=== PATIENT | female | born 1930 | race Caucasian/White ===

== ENCOUNTER 2016-08-15 21:49 | Inpatient (IN) | payer MEDICARE ==
[~2016-08-15] VITALS: Ht 170.2 cm; Wt 88.6 kg
[~2016-08-15 21:49] MED LIST: AMIO200T PO; ARTISOL2 EACH EYE; ATEN50TA PO; BIOT1SUB PO/SL; D32000TA PO; DILT31TA PO; DULC100C PO; FOLI1TAB4 PO; FURO1TAB60 PO; INSU100V SQ; LEVO50TA4 PO; MAPA650T PO; NEPHTAB3 PO; OCUVTAB4 PO; RANO500 PO; ZOFR4TAB PO
[2016-08-15] MEDS ORDERED: SODIUM CHLORIDE 0.9% FLUSH 10 ML FLUSH IVF PRN (22:00)
[2016-08-15] MEDS ORDERED: CALCIUM CHLORIDE INJ 1 GM in DEXTROSE 5% IN WATER 100ML INJ 100 ML IV ONE ×2 (22:00)
[2016-08-15 22:02] VITALS: BP 129/60; PULSE 106; RESP 20; O2SAT 95
[2016-08-15] MEDS: RESP: ALBUTEROL 2.5 MG/IPRATROPIUM 0.5 MG NEB (SCH) INH ×2 (22:04→22:05)
[2016-08-15 22:05] VITALS: BP 129/60; PULSE 106; RESP 20; TEMP 97.5; O2SAT 95
--- NOTE | 2016-08-15 22:08 | PD ---
HPI Chief Complaint: Altered Mental Status Time Seen by Provider: 21:55 Travel History International Travel<30 days: No Contact w/Intl Traveler<30days: No History of Present Illness HPI The patient is an 86 year old female who presents to the [facility] emergency department with a history of developing a decreased level of consciousness prior to arrival in the middle of her peritoneal dialysis. The patient continues to have retained fluid from the dialysis session. The patient is became cool, pale, and diaphoretic. The patient was not responsive to her daughter. Ambulance services were called and the patient was noted to have a normal blood sugar at 121, however the patient's blood pressure was a systolic of 60. The patient was placed flat and her blood pressure began to improve. The patient initially had a GCS of 3, however she became increasingly awake and alert after her blood pressure began to improve to systolic of 120. The patient on arrival reports that she's had abdominal pain that has been generalized since yesterday. She reports that she's had dry heaving with nausea , no vomiting. She denies having any diarrhea. She reports that her last bowel movement was yesterday was small. She reports that she last did her peritoneal dialysis yesterday and the fluid was unchanged in color. She denies having any fevers. She does report having shortness of breath, however she denies having any chest pain or pressure. The patient denies any recent cough cough, congestion, neck pain, diarrhea, urinary symptoms, one-sided weakness, slurred speech, facial droop, difficulty with word finding ability, or vision changes. [facility] Past Medical History Narrative Medical The patient's past medical history is significant for renal failure on peritoneal dialysis reportedly for the last 3 years, history of hypertension, history of pacemaker placement, history of diabetes mellitus, arthritis, anemia , history of skin cancer. Hx Anticoagulant Therapy: Yes (BABY ASA LAST TAKEN WAS 3 DAYS AGO ) Anemia: Yes Cancer: Yes (SKIN) Cardiovascular Problems: Yes (HTN ) Diabetes: Yes Dialysis: Yes Diminished Hearing: Yes Endocrine: Yes Glaucoma: No Genitourinary: Yes (STAGE 4 KIDNEY FAILURE) Hepatitis: No Hiatal Hernia: No Hypertension: Yes Immune Disorder: No Musculoskeletal: Yes (ARTHRITIS) Neurologic: No Psychiatric: No Reproductive: No Respiratory: No Immunizations Current: Yes Renal Failure: Yes Thyroid Disease: Yes Menopausal: Yes : 3 Para: 3 Past Surgical History Narrative Surgical The patient's past surgical history is significant for a pacemaker placement, cholecystectomy, peritoneal dialysis catheter placement, hysterectomy, cataract surgery Abdominal Surgery: Yes (UMBILICAL HERNIA REPAIR, DIALYSIS PORT) AICD: No Body Medical Devices: TEETH Cardiac Surgery: No Cholecystectomy: Yes Ear Surgery: No Endocrine Surgery: No Eye Surgery: Yes (CATARACT SX MEGHANA.) Genitourinary Surgery: No Gynecologic Surgery: Yes (HYSTERECTOMY) Hysterectomy: Yes Joint Replacement: No Oral Surgery: No Pacemaker: No Thoracic Surgery: No Other Surgery: Yes (see hx) Social History Alcohol Use: No Tobacco Use: No Substance Use: No Allergies-Medications (Allergen,Severity, Reaction): Coded Allergies: Adhesives (Verified Allergy, Severe, BLISTERS, 08/15/16) ALL ADHESIVES (EVEN NON ALLERGENIC) Reported Meds & Prescriptions Reported Meds & Active Scripts Active Reported Preservision Areds 2 (Multiple Vitamins W/ Minerals) 1 Cap 1 Cap PO BID Aspirin 81 Mg Chew 81 Mg CHEW DAILY Plavix (Clopidogrel Bisulfate) 75 Mg Tab 75 Mg PO DAILY Cranberry Plus Vitamin C (Cranberry-Vitamin C-Vitamin E) 4,200-20-3 Mg-Mg-Unit Cap 1 Cap PO HS Systane Nighttime Opth Oint (White Petrolatum-Mineral Oil Opth Oint) 1 Application Oint 1 Applic EACH EYE HS Bethanechol 25 Mg Tab 25 Mg PO ACHS Pantoprazole (Pantoprazole Sodium) 40 Mg Tab 40 Mg PO DAILY Pepcid (Famotidine) 20 Mg Tab 20 Mg PO BID Zofran Odt (Ondansetron Odt) 4 Mg Tab 4 Mg SL Q4HR PRN Ranexa ER 12 HR (Ranolazine) 500 Mg Tab 500 Mg PO DAILY Amiodarone (Amiodarone HCl) 200 Mg Tab 200 Mg PO DAILY Systane Ultra Opth (Polyethylene Glycol-Propylene Opth) 0.4-0.3% Soln 1 Drop EACH EYE BID Dulcolax Stool Softener (Docusate Sodium) 100 Mg Cap 100 Mg PO HS D3 (Cholecalciferol) 2,000 Unit Tab 2,000 Units PO DAILY Nephro-Clara (B-Complex W/ C & Folic Acid) 1 Tab 1 Tab PO DAILY Levothyroxine (Levothyroxine Sodium) 50 Mcg Tab 50 Mcg PO DAILY Lasix (Furosemide) 40 Mg Tab 40 Mg PO DAILY Folate (Folic Acid) 1 Mg Tab 1 Mg PO DAILY Mapap Arthritis Pain ER 8 HR (Acetaminophen) 650 Mg Tab 650 Mg PO Q4HR PRN Humalog Mix 75-25 Inj (Insulin Lispro Protam/Lispro Human) 1,000 Unit/10 Ml Susp 6 Units SQ AC DINNER Humalog Mix 75-25 Inj (Insulin Lispro Protam/Lispro Human) 1,000 Unit/10 Ml Susp 26 Units SQ AC BREAKFAST Review of Systems Except as stated in HPI: all other systems reviewed are Neg General / Constitutional: No: Fever Eyes: No: Visual changes HENT: No: Headaches, Rhinorrhea, Congestion, Neck Stiffness, Neck Pain Cardiovascular: Positive: Dyspnea on exertion, No: Chest Pain or Discomfort Respiratory: Positive: Shortness of Breath, No: Cough Gastrointestinal: Positive: Nausea, Loss of Appetite, No: Vomiting, Diarrhea, Abdominal Pain, Changes in Bowel Habits, Indigestion Genitourinary: No: Dysuria Musculoskeletal: No: Pain Skin: No Rash Neurologic: Positive: Weakness (generalized weakness), Syncope, Change in Mentation (decreased level of consciousness prior to arrival), No: Focal Abnormalities, Slurred Speech, Sensory Disturbance Psychiatric: No: Depression Endocrine: No: Polydipsia Hematologic/Lymphatic: No: Easy Bruising Physical Exam Narrative General: The patient is a well-developed well-nourished female, pale appearing on arrival , slightly diaphoretic. Head and Neck exam: Head is normocephalic atraumatic. Eyes: EOMI, pupils are equal round and reactive to light. Nose: Midline septum with pink mucous membranes Mouth: Dentition unremarkable. Moist mucus membranes. Posterior oropharynx is not erythematous. No tonsillar hypertrophy. Uvula midline. Airway patent. Neck: No palpable lymphadenopathy. No nuchal rigidity. No thyromegaly. Cardiovascular: Regular rate and rhythm without murmurs, gallops, or rubs. Lungs: The patient has crackles audible in the left lower lung base, diminished breath sounds in the bases bilaterally. No rhonchi, no wheezes audible. The patient has a prolonged expiratory phase of breathing. She is noted to have pursed lip breathing on exhalation. Abdomen: Distended on examination without any focal tenderness on palpation of all 4 quadrants of the abdomen. She has a peritoneal dialysis catheter in place along the right side of the abdomen that appears to be in good repair without any signs of erythema, surrounding drainage, or tenderness on palpation. No guarding, rebound, or rigidity. Negative [place] sign. No tenderness on palpation of McBurney's point. Extremities: No clubbing or cyanosis. The patient has 2+ pitting edema bilateral lower extremities. 2+ pulses in all 4 extremities. Back: No costovertebral angle tenderness to palpation. Neurologic Exam: Cranial nerves 2-12 were intact on exam. Strength is 4/5 in all 4 extremities consistent with generalized weakness. No sensory deficits noted. Skin Exam: No rash noted. Intact skin that is warm and dry. Data Data Last Documented VS Vital Signs Date Time Temp Pulse Resp B/P Pulse Ox O2 Delivery O2 Flow Rate FiO2 08/15/16 22:20 106 20 95 08/15/16 22:12 97.5 129/60 08/15/16 22:05 Nasal Cannula 2 Orders Electrocardiogram (08/15/16 21:55) Complete Blood Count With Diff (08/15/16 21:55) Comprehensive Metabolic Panel (08/15/16 21:55) Creatine Kinase (Cpk) (08/15/16 21:55) Ckmb (Isoenzyme) Profile (08/15/16 21:55) Troponin I (08/15/16 21:55) B-Type Natriuretic Peptide (08/15/16 21:55) Prothrombin Time / Inr (Pt) (08/15/16 21:55) Act Partial Throm Time (Ptt) (08/15/16 21:55) Arterial Blood Gas (Abg) (08/15/16 21:55) Blood Culture (08/15/16 21:55) Lipase (08/15/16 21:55) Urinalysis - C+S If Indicated (08/15/16 21:55) Magnesium (Mg) (08/15/16 21:55) Chest, Single Ap (08/15/16 21:55) Ct Brain W/O Iv Contrast(Rout) (08/15/16 21:55) Iv Access Insert/Monitor (08/15/16 21:55) Ecg Monitoring (08/15/16 21:55) Oximetry (08/15/16 21:55) Lactic Acid Sepsis Protocol (08/15/16 21:55) Calcium Chloride Inj (Calcium Chloride I (08/15/16 22:00) Sodium Chloride 0.9% Flush (Ns Flush) (08/15/16 22:00) Albuterol-Ipratropium Neb (Duoneb Neb) (08/15/16 22:00) Ondansetron Inj (Zofran Inj) (08/15/16 22:45) Aspirin Chew (Aspirin Chew) (08/15/16 23:30) Nitroglycerin 2% Oint (Nitroglycerin 2% (08/15/16 23:30) Ct Abd/Pel W/O Iv Contrast (08/15/16 23:18) Admit Order (Ed Use Only) (08/15/16 23:23) Labs Laboratory Tests Test 08/15/16 08/15/16 22:05 22:10 White Blood Count 12.5 TH/MM3 Red Blood Count 3.13 MIL/MM3 Hemoglobin 10.0 GM/DL Hematocrit 29.8 % Mean Corpuscular Volume 95.0 FL Mean Corpuscular Hemoglobin 31.9 PG Mean Corpuscular Hemoglobin 33.6 % Concent Red Cell Distribution Width 18.1 % Platelet Count 295 TH/MM3 Mean Platelet Volume 8.5 FL Neutrophils (%) (Auto) 69.2 % Lymphocytes (%) (Auto) 22.4 % Monocytes (%) (Auto) 6.0 % Eosinophils (%) (Auto) 1.4 % Basophils (%) (Auto) 1.0 % Neutrophils # (Auto) 8.6 TH/MM3 Lymphocytes # (Auto) 2.8 TH/MM3 Monocytes # (Auto) 0.8 TH/MM3 Eosinophils # (Auto) 0.2 TH/MM3 Basophils # (Auto) 0.1 TH/MM3 CBC Comment DIFF FINAL Differential Comment Prothrombin Time 11.3 SEC Prothromb Time International 1.0 RATIO Ratio Activated Partial 27.5 SEC Thromboplast Time Sodium Level 137 MEQ/L Potassium Level 3.7 MEQ/L Chloride Level 100 MEQ/L Carbon Dioxide Level 26.0 MEQ/L Anion Gap 11 MEQ/L Blood Urea Nitrogen 33 MG/DL Creatinine 3.73 MG/DL Estimat Glomerular Filtration 12 ML/MIN Rate Random Glucose 149 MG/DL Calcium Level 9.2 MG/DL Magnesium Level 2.3 MG/DL Total Bilirubin 0.4 MG/DL Aspartate Amino Transf 31 U/L (AST/SGOT) Alanine Aminotransferase 28 U/L (ALT/SGPT) Alkaline Phosphatase 138 U/L Total Creatine Kinase 31 U/L Troponin I 0.16 NG/ML B-Type Natriuretic Peptide 3072 PG/ML Total Protein 7.4 GM/DL Albumin 2.5 GM/DL Lipase 412 U/L Lactic Acid Level 2.9 mmol/L Blood Gas Puncture Site LT RADIAL Blood Gas Patient Temperature 98.6 Blood Gas HCO3 23 mmol/L Blood Gas Base Excess -0.8 mmol/L Blood Gas Oxygen Saturation 97 % Arterial Blood pH 7.43 Arterial Blood Partial 35 mmHg Pressure CO2 Arterial Blood Partial 109 mmHG Pressure O2 Arterial Blood Oxygen Content 15.0 Vol % Arterial Blood 1.3 % Carboxyhemoglobin Arterial Blood Methemoglobin 0.4 % Blood Gas Hemoglobin 10.9 G/DL Oxygen Delivery Device ROOM AIR Blood Gas Inspired Oxygen 21 % MDM Medical Decision Making Medical Screen Exam Complete: Yes Emergency Medical Condition: Yes Medical Record Reviewed: Yes Interpretation(s) Last Impressions Abdomen/Pelvis CT 08/15/16 2318 Signed Impressions: Service Date/Time: Monday, August 15, 2016 23:26 - CONCLUSION: 1. No acute abnormality to explain the patient's pain. 2. Peritoneal dialysis catheter with small volume dialysate within the peritoneal cavity. Wellington Adorno Jr., MD Head CT 08/15/[id number] Signed Impressions: Service Date/Time: Monday, August 15, 2016 23:22 - CONCLUSION: 1. No acute intracranial abnormality. 2. Chronic small vessel ischemic change. Wellington Adorno Jr., MD Chest X-Ray 08/[id number]/[id number] Signed Impressions: Service Date/Time: Monday, August 15, 2016 22:07 - CONCLUSION: Left base parenchymal process appears similar to prior. Nothing acute Haresh Vasquez MD Differential Diagnosis Hypotension due to poor by mouth intake, versus electrolyte abnormality, versus cardiac arrhythmia, versus sepsis, versus cardiogenic shock, versus orthostasis , versus vasovagal syncope Narrative Course During the course of the patients emergency department visit, the patients history, examination, and differential diagnosis were reviewed with the patient. The patient had IV access obtained and blood work sent for analysis. The patient states on a awake overnight monitor with oximetry and blood pressure monitoring. An EKG was done on arrival. The patient's EKG shows a paced rhythm heart rate of 70. The patient's family, daughter arrived at the bedside and provides more history regarding the patient's recent illnesses. The patient reportedly has a history of a GI bleed that is thought to be involving the small intestine after a pill study. She is followed by Dr. Yang for this. This Sunday, the patient is scheduled to have her pacemaker changed. The patient has been appearing paler than usual and her daughter is concerned that she may be increasingly anemic. Her last endoscopy was done a year ago. Her gastrologist is Dr. Yang. The patient has had increased abdominal pain and nausea with difficulty moving her bowels for the last 2 weeks. She did take 2 Dulcolax yesterday and had a small bowel movement. The patient's daughter reports that during peritoneal dialysis she became unresponsive, cool, pale, and diaphoretic. Her daughter reports that she is the one that usually administers the peritoneal dialysis. She reports that she has approximate 1.5 L of fluid still indwelling in her abdomen that needs to be dialyzed. The patient's daughter will complete her peritoneal dialysis here in the emergency department. Peritoneal dialysis in the emergency department. The patient was initially provided calcium gluconate to stabilize the cardiac membranes due to the possibility of this patient having hyperkalemia as the cause of her syncope. The patient was given a DuoNeb nebs 2. The patients laboratory studies were reviewed and remarkable for a CBC that shows a white count of 12.5, hemoglobin 10, platelets 295 with a normal differential, CMP is remarkable for BUN of 33, creatinine 3.73, glucose 149, alkaline phosphatase 138, CPK 31, troponin I 0.16 which could be related to a cardiac event, versus renal insufficiency. The patient denies any chest pain at this time. Lipase is 412. Lactic acid is 2.9 at this time IV fluid resuscitation is held as the patient has evidence of fluid overload and renal failure. PT 11.3, INR 1.0, PTT 27.5. The patient had an ABG done on arrival that shows a pH of 7.43, PCO2 35, PO2 109, bicarbonate 22.9. Radiology studies were reviewed and remarkable for a chest x-ray that shows no acute abnormality. The patient is noted to have a left base parenchymal process that appears similar to prior x-rays. CT scan of the brain shows no acute abnormality. CT scan of the abdomen and pelvis shows no acute abnormality to explain the patient's pain, peritoneal dialysis catheter was small volume of dialysate within the peritoneal cavity. The patients results were discussed with the patient, including the plan of care. I explained that further testing and/ or monitoring is indicated based on the patients history, examination, and/ or laboratory findings. Therefore, I recommended admission for additional evaluation. The patient expressed understanding and was agreeable with this plan. The patient was admitted to the hospital in guarded condition and sent to a bed under the care of the [facility]. Critical Care Narrative Aggregate critical care time was 40 minutes. Time to perform other separately billable procedures was not included in the critical care time. My time did not include minutes spent treating any other patients simultaneously or on activities that did not directly contribute to the patient's treatment. The services I provided to this patient were to treat and/or prevent clinically significant deterioration that could result in: Cardiovascular collapse, versus respiratory failure I provided critical care services requiring my management, as noted below: Chart data review, documentation time, medication orders and management, vital sign assessments/reviewing monitor data, ordering and reviewing lab tests, ordering and interpreting/reviewing x-rays and diagnostic studies, care of the patient and discussion of the patient with the admitting physicians. Sepsis Criteria SIRS Criteria (2 or more): Heart rate over 90 Physician Communication Physician Communication The patient's case was discussed with Haresh Kelly the physician assistant professor of drama for the [facility] who did agree to admit the patient for further evaluation and treatment at this time. Diagnosis Primary Impression: Syncope and collapse Admitting Information Admitting Physician Requests: Admit Kajal George MD August 15, 2016 22:08
[2016-08-15 22:12] VITALS: BP 129/60; PULSE 106; RESP 20; TEMP 97.5; O2SAT 95
--- NOTE | 2016-08-15 22:18 | RADRPT ---
EXAM DATE/TIME: 08/15/2016 22:07 [facility] COMPARISON: CHEST SINGLE AP, February 22, 2016, 22:28. INDICATIONS : Shortness of breath. MEDICAL HISTORY : Hypertension. Diabetes mellitus type II. Renal insufficiency. SURGICAL HISTORY : Pacemaker. ENCOUNTER: Initial ACUITY: 1 day PAIN SCORE: Non-responsive. LOCATION: Bilateral chest FINDINGS: Pacemaker device is noted with control pack over the left chest. No evidence of pneumothorax. Slight hazy opacity at the left lung base could reflect mild parenchymal disease and/or effusion, however th e appearance is similar to prior. Right lung is clear. Cardiac contours are grossly stable. CONCLUSION: Left base parenchymal process appears similar to prior. Nothing acute Haresh Vasquez MD on August 15, 2016 at 22:14 Board Certified Radiologist. This report was verified electronically.
[2016-08-15 22:23] LABS: BLOOD GAS BASE EXCESS -0.8 mmol/L (-2-2); BLOOD GAS CARBOXYHEMOGLOBIN 1.3 % (0-4); BLOOD GAS HCO3 23 mmol/L (22-26); BLOOD GAS METHEMOGLOBIN 0.4 % (0-2); BLOOD GAS O2 HGB SATURATION 97 % (90-100); BLOOD GAS PCO2 35 mmHg (38-42); BLOOD GAS PO2 109 mmHG (61-120); BLOOD GAS TOTAL HGB 10.9 G/DL (12.0-16.0); CRITICAL VALUE NO; DRAW SITE LT RADIAL; FIO2 21 %; NUMBER OF ARTERIAL PUNCTURES 1; OXYGEN DEVICE ROOM AIR; STAT YES; TEMP CORR TO 98.6; ULNAR PULSE PRESENT
[2016-08-15 22:30] LABS: AUTOMATED NEUTROPHIL # 8.6 TH/MM3 (1.8-7.7); BASOPHIL # 0.1 TH/MM3 (0-0.2); EOSINOPHIL # 0.2 TH/MM3 (0-0.4); EOSINOPHIL % 1.4 % (0.0-4.0); HEMATOCRIT 29.8 % (35.0-46.0); HEMO FLAGS DIFF FINAL; LYMPH % 22.4 % (9.0-44.0); LYMPHOCYTE # 2.8 TH/MM3 (1.0-4.8); MEAN CORPUSCULAR HEMOGLOBIN 31.9 PG (27.0-34.0); MEAN CORPUSCULAR HGB CONC 33.6 % (32.0-36.0); NEUT % 69.2 % (16.0-70.0); PLATELET COUNT 295 TH/MM3 (150-450); RED BLOOD COUNT 3.13 MIL/MM3 (4.00-5.30); RED CELL DISTRIBUTION WIDTH 18.1 % (11.6-17.2); WHITE BLOOD COUNT 12.5 TH/MM3 (4.0-11.0)
[2016-08-15 22:40] LABS: PROTHROMBIN TIME - PATIENT 11.3 SEC (9.8-11.6)
[2016-08-15 22:41] LABS: ALT (GPT) 28 U/L (10-53); ANION GAP 11 MEQ/L (5-15); AST (GOT) 31 U/L (15-37); BLOOD UREA NITROGEN 33 MG/DL (7-18); CHLORIDE 100 MEQ/L (98-107); GLOMERULAR FILTRATION RATE 12 ML/MIN (>89); MAGNESIUM 2.3 MG/DL (1.5-2.5); POTASSIUM 3.7 MEQ/L (3.5-5.1); SODIUM (NA) 137 MEQ/L (136-145)
[2016-08-15] MEDS ORDERED: RANO500 PO (22:42)
[2016-08-15] MEDS ORDERED: AMIO200T PO (22:42)
[2016-08-15] MEDS ORDERED: SYSTSOL9 EACH EYE (22:42)
[2016-08-15 22:43] LABS: APTT (PATIENT) 27.5 SEC (24.3-30.1)
[2016-08-15] MEDS ORDERED: ZOFR4TAB3 SL (22:43)
[2016-08-15] MEDS ORDERED: FAMO1TAB37 PO (22:43)
[2016-08-15 22:45] LABS: ALKALINE PHOSPHATASE 138 U/L (45-117); TOTAL BILIRUBIN ADULT 0.4 MG/DL (0.2-1.0)
[2016-08-15] MEDS ORDERED: ONDANSETRON HCL 4 MG/2 ML VIAL IV ONE (22:45)
[2016-08-15] MEDS ORDERED: BETH25TA2 PO (22:47)
[2016-08-15] MEDS ORDERED: SYSTOIN EACH EYE (22:47)
[2016-08-15] MEDS ORDERED: PANT40TA3 PO (22:47)
[2016-08-15] MEDS ORDERED: ASPI81CH CHEW (22:47)
[2016-08-15] MEDS ORDERED: PLAV75TA29 PO (22:47)
[2016-08-15] MEDS ORDERED: CRANCAP10 PO (22:47)
[2016-08-15] MEDS ORDERED: PRESCAP5 PO (22:49)
[2016-08-15 22:59] LABS: CREATINE KINASE 31 U/L (26-192)
[2016-08-15] MEDS ORDERED: ACETAMINOPHEN 325 MG TAB PO PRN (23:30)
[2016-08-15] MEDS ORDERED: SENNOSIDES 8.6 MG TAB PO PRN (23:30)
[2016-08-15] MEDS ORDERED: NITROGLYCERIN 2% OINT 1 GM PACKET TOPICAL ONE (23:30)
[2016-08-15] MEDS ORDERED: ASPIRIN 81 MG CHEW TAB CHEW ONE (23:30)
[2016-08-15] MEDS ORDERED: SODIUM CHLORIDE 0.9% FLUSH 10 ML FLUSH IV FLUSH PRN (23:30)
[2016-08-15] MEDS ORDERED: NALOXONE HCL 0.4 MG/ML AMP IV PRN (23:30)
[2016-08-15] MEDS ORDERED: BISACODYL 10 MG SUPP RECTAL PRN (23:30)
--- NOTE | 2016-08-15 23:36 | RADRPT ---
EXAM DATE/TIME: 08/15/2016 23:22 [facility] COMPARISON: No previous studies available for comparison. INDICATIONS : Syncope with altered mental status. RADIATION DOSE: 48.70 CTDIvol (mGy) MEDICAL HISTORY : Cardiovascular disease. Hypertension. Renal failure, chronic.Diabetes SURGICAL HISTORY : Umbilical hernia repair. Cholecystectomy.Hysterectomy. ENCOUNTER: Initial ACUITY: 1 day PAIN SCALE: 0/10 LOCATION: cranial TECHNIQUE: Multiple contiguous axial images were obtained of the head. Using automated exposure control and adj ustment of the mA and/or kV according to patient size, radiation dose was kept as low as reasonably a chievable to obtain optimal diagnostic quality images. FINDINGS: CEREBRUM: Periventricular low attenuation change involving both cerebral hemispheres. The ventricles are normal for age. No evidence of midline shift, mass lesion, hemorrhage or acute infarction. No extra-axial fluid collections are seen. POSTERIOR FOSSA: The cerebellum and brainstem are intact. The 4th ventricle is midline. The cerebellopontine angle i s unremarkable. EXTRACRANIAL: The visualized portion of the orbits is intact. SKULL: The calvaria is intact. No evidence of skull fracture. CONCLUSION: 1. No acute intracranial abnormality. 2. Chronic small vessel ischemic change. Wellington Adorno Jr., MD on August 15, 2016 at 23:33 Board Certified Radiologist. This report was verified electronically.
[2016-08-15 23:39] VITALS: O2SAT 100
--- NOTE | 2016-08-15 23:47 | RADRPT ---
EXAM DATE/TIME: 08/15/2016 23:26 [facility] COMPARISON: CT ABDOMEN & PELVIS W/O CONTRAST, February 22, 2016, 23:07. INDICATIONS : Abdomen pain with vomiting. ORAL CONTRAST: No oral contrast ingested. RADIATION DOSE: 15.92 CTDIvol (mGy) MEDICAL HISTORY : Cardiovascular disease. Hypertension. Renal failure, chronic.Diabetes SURGICAL HISTORY : Umbilical hernia repair. Cholecystectomy.Hysterectomy. ENCOUNTER: Initial ACUITY: 1 day PAIN SCALE: 0/10 LOCATION: abdomen TECHNIQUE: Volumetric scanning of the abdomen and pelvis was performed. Using automated exposure control and ad justment of the mA and/or kV according to patient size, radiation dose was kept as low as reasonably achievable to obtain optimal diagnostic quality images. FINDINGS: LOWER LUNGS: The visualized lower lungs are clear. A stent is seen involving the aortic valve consistent with a st ent mounted valve replacement. LIVER: Homogeneous density without lesion. There is a sub-1 cm low density focus involving the tip of the li jazzmine. Long-term stable and likely relates to a cyst. There is no dilation of the biliary tree. No anant cified gallstones. SPLEEN: Normal size without lesion. PANCREAS: Within normal limits. KIDNEYS: Normal in size and shape. There is no mass, stone, or hydronephrosis. A tiny high density cortical r enal cyst is seen exophytic from the anterior midpole the right kidney. This is stable. ADRENAL GLANDS: Within normal limits. VASCULAR: There is no aortic aneurysm. BOWEL/MESENTERY: The stomach, small bowel, and colon demonstrate no acute abnormality. There is no free intraperitone al air. A peritoneal dialysis catheter is seen coiled anteriorly within the lower abdomen. A small vo lume of dialysate is seen throughout the abdomen. ABDOMINAL WALL: Within normal limits. RETROPERITONEUM: There is no lymphadenopathy. BLADDER: No wall thickening or mass. REPRODUCTIVE: Within normal limits. INGUINAL: There is no lymphadenopathy or hernia. MUSCULOSKELETAL: Diffuse degenerative changes of the lumbar spine. CONCLUSION: 1. No acute abnormality to explain the patient's pain. 2. Peritoneal dialysis catheter with small volume dialysate within the peritoneal cavity. Wellington Adorno Jr., MD on August 15, 2016 at 23:42 Board Certified Radiologist. This report was verified electronically.
[2016-08-16] VITALS (57 sets, daily range): BP systolic 75–186; BP diastolic 45–97; PULSE 62–87; RESP 16–54; TEMP 94.5–98.6; O2SAT 97–100
[2016-08-16 00:18] LABS: LACTIC ACID GHOST NOT REPORTABLE
[2016-08-16] MEDS ORDERED: DEXTROSE 50% IN WATER 50 ML VIAL(D50) IV PUSH PRN ×2 (00:30→14:30)
[2016-08-16] MEDS ORDERED: GLUCAGON 1 MG/ML VIAL OTHER PRN ×2 (00:30→14:30)
[2016-08-16] MEDS: SODIUM CHLOR 0.9% 1000 ML INJ 1,000 ML IV SCH (01:15)
[2016-08-16] MEDS: ONDANSETRON HCL 4 MG/2 ML VIAL IVP PRN ×2 (03:11→08:48)
[2016-08-16 05:06] LABS: BICARBONATE 25.4 MEQ/L (21.0-32.0); POTASSIUM 3.5 MEQ/L (3.5-5.1)
--- NOTE | 2016-08-16 05:56 | MH ---
cc: LIZZ GRAHAM JAWED A. MD DATE OF ADMISSION: 08/15/2016 TIME OF EXAM The patient was seen at 23:30. PRIMARY CARE PHYSICIAN Dr. Lizz Graham CHIEF COMPLAINT Syncope. HISTORY OF PRESENT ILLNESS This is a pleasant 86-year-old female with multiple medical problems. The patient has been having some abdominal pain for weeks. About two weeks ago she was at [facility]. Since then she has seen her yarn worker, Dr. Yang. He switched her Prilosec to Protonix. She also started taking Prevacid. She is also on bethanechol for what sounds like gastroparesis. The patient's pain improved and is mild but apparently Dr. Yang wants to do an endoscopy on her after she is cleared cardiac-morris. She is due for a pacemaker upgrade to a dual lead later this week. The patient is on peritoneal dialysis. She has not been having fever. She was at home having her peritoneal dialysis today and she passed out. She was unconscious for awhile. The daughter called 9--1 and [facility]AC came, loaded her on the ambulance. GCS was 3 at that time. Her sugar was stable. Her pressure systolic was at 60. The patient was placed flat. She became more awake and alert, her pressure stabilized and is actually high on the monitor at this point. The patient is A&O x 4 at this point. She still has some minimal abdominal discomfort, mainly in the upper abdomen where it has been for the whole time. She did have some nausea. She may have thrown up a small amount at the hospital, was not throwing up at home. She developed some chills at the hospital but has been afebrile. She had a small bowel movement earlier today which was dark but not overtly bloody or tarry. She does have a history of GI bleed and anemia and AVMs. MEDICATIONS ON ADMISSION Please see the chart. ALLERGIES ADHESIVES. PAST MEDICAL HISTORY 1. End-stage renal disease on peritoneal dialysis. 2. History of A-fib. 3. Diabetes. 4. TIA. 5. Hypertension. 6. Anemia. 7. GI bleed. 8. AVMs. 9. Aortic stenosis. 10. Hypothyroidism. 11. Possible gastroparesis. 12. History of syncope. 13. Coronary artery disease, status post RI without intervention. PAST SURGICAL HISTORY 1. Cholecystectomy. 2. Hernia repair. 3. Hysterectomy. 4. Peritoneal dialysis catheter. 5. Permanent pacemaker placed, TAVR. 6. Cardiac catheterization. SOCIAL HISTORY Lives with her daughter. Uses a walker. No tobacco or alcohol. FAMILY HISTORY Non-contributory. REVIEW OF SYSTEMS The patient has had a lot of medical changes over the past six months. She was admitted to [facility] apparently with a GI bleed late last year and had an RI and Dr. Read had done a cath without intervention, according to the daughter. She was also found to have the severe aortic stenosis and had a TAVR done. She has chronic edema in the legs which gets better in the morning, is worse at night. She has had several episodes of syncope in the past, most of them related to bowel movements or GI bleeds. On 12-point review of systems, no other pertinent findings. PHYSICAL EXAMINATION VITAL SIGNS: The patient has been afebrile, respirations 20, last blood pressure recorded was 129/60, pulse of 106. GENERAL: This is an 86-year-old female resting in bed. She has chills and appears to be mildly tachypneic during my interview. HEENT: Mucous membranes are moist. No jaundice. NECK: Supple. CARDIOVASCULAR SYSTEM: Tachycardic. RESPIRATORY SYSTEM: Decreased breath sounds at the bases. GASTROINTESTINAL SYSTEM: Bowel sounds are present. She is obese. There is a peritoneal dialysis catheter in the right lower quadrant. There is some mild tenderness in the epigastric area and right upper and left upper quadrants but no guarding or rebound. SYSTEM: No CVA tenderness. No suprapubic tenderness. MUSCULOSKELETAL SYSTEM: 2+ pitting edema bilateral lower extremities in the pretibial and over the feet. There are no cyanotic or gangrenous changes. NEUROLOGICAL EXAM: The patient is awake and alert. Her speech is clear and fluent. There is no obvious facial asymmetry. She knows the year, the month and the day. She can tell me who the President is. Her tongue is midline. EOMs are intact. Perinatal Social Worker is 5/5 and symmetrical. INVESTIGATIONS White count is 12.5, hemoglobin is 10, hematocrit is 29.8, platelets are 295. ABGs showed a pH of 7.43, a pCO2 of 35, PO2 of 109. INR is 1. Lactic acid was 2.9. Sodium 137, potassium 3.7, BUN 33, creatinine 3.73. Glucose is 149, alkaline phosphatase 138. Troponin 0.16. BNP is 3072. Albumin is 2.5, lipase is 412. Urinalysis was pending. IMAGING STUDIES Head CT is pending. Chest x-ray shows left base parenchymal process, appears similar to prior study, nothing acute. CT of the abdomen and pelvis shows a small ventral hernia on the right anterior abdominal wall containing a loop of small bowel, no bowel dilatation or obstruction. There are two small bilateral pleural effusions, right greater than left, mild anasarca. Small cyst in the liver and kidneys. Renal cortical atrophy. Postoperative cholecystectomy. EKG is not scanned in but according to Dr. George there was no acute finding. IMPRESSION 1. Syncope. 2. End-stage renal disease on peritoneal dialysis. 3. Elevated troponin. 4. Bilateral right greater than left pleural effusions. 5. Abdominal pain. 6. History of GI bleeds and AVMs. 7. Hypertension. 8. Diabetes mellitus type 2. 9. 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 DISCUSSION 1. The patient is placed on observation status to Dr. Javier's service. The plan is to run serial troponins. Consult her messenger copy, Dr. Read, to evaluate her as well as Dr. Barrios her finish painter to help manage her peritoneal dialysis. We will consult Dr. Yang, the yarn worker, to evaluate her for this abdominal discomfort. 2. We will continue her home medications as indicated. 3. We will have physical therapy consulted. 4. DVT prophylaxis. We will continue GI prophylaxis. 5. She will be monitored on telemetry. 6. She is scheduled to have her pacemaker upgrade done at [facility] on August 18, 2016. This will be deferred to Dr. Read if it needs to be moved up and done here or if she will be released prior to then and have it done as planned at [facility]. ANTICIPATED LENGTH OF STAY: Two days. ANTICIPATED DISCHARGE: Home with family. Dictated by: Gary Kelly PA-C Louise Javier MD JP/JOHNNY /12:13 AM /5:22 AM PT SEEN AND EXAMINED ABOVE CHART REVIEWED INCLUDING LABS MEDS AND NOTES AND RAD DATA DW PT PLAN OF CARE DW HOG DRIVER BIANCA RN AT TIME OF MORNING PT CONDITION WAS GUARDED MTDD
[2016-08-16] MEDS ORDERED: cloNIDine HCL 0.1 MG TAB PO PRN (06:15)
[2016-08-16] MEDS: HEPARIN SODIUM - SQ 10,000 UNITS/ML VIAL SQ SCH ×2 (06:28→18:00)
[2016-08-16] MEDS: BETHANECHOL CHL 25 MG TAB PO SCH (06:28)
[2016-08-16] MEDS: NITROGLYCERIN 2% OINT 1 GM PACKET TOPICAL SCH ×4 (06:29→23:37)
--- NOTE | 2016-08-16 07:20 | HHI.PR ---
Objective Objective Results - Vital Signs Date Time Temp Pulse Resp B/P Pulse Ox O2 Delivery O2 Flow Rate FiO2 08/16/16 04:42 98.1 80 20 186/87 97 171/97 08/16/16 04:11 87 08/16/16 03:12 79 20 170/82 100 Nasal Cannula 08/16/16 00:22 98.6 75 20 152/88 99 Nasal Cannula 2 08/15/16 23:39 100 08/15/16 22:20 106 20 95 08/15/16 22:12 97.5 106 20 129/60 95 08/15/16 22:05 97.5 106 20 129/60 95 Nasal Cannula 2 08/15/16 22:02 106 20 129/60 95 Nasal Cannula 2 Result Diagram: 08/15/165 08/16/16 0415 Physical Exam Physical Exam PHYSICAL EXAMINATION GENERAL: This is a well-developed, well-nourished female who appears to be in no acute distress. She is alert and awake, []. HEAD: Normocephalic without any lesion or mass noted. Facial features appear symmetric. OROPHARYNGEAL: Oropharynx without erythema or edema. NECK: Supple. No nuchal rigidity or lymphadenopathy. Trachea midline without deviation. CARDIAC: Regular rhythm, regular rate, S1 and S2 are heard. Murmur []; no gallops or rubs. LUNGS: Clear to auscultation bilaterally. [] wheeze, [] rhonchi or [] rale. No use of accessory muscles on inspiration or expiration. ABDOMEN: Soft, nontender, no organomegaly or masses. Bowel sounds are heard in all four quadrants. No rebound. No guarding. EXTREMITIES: [] edema. Pulses equal bilateral. [] cyanosis. NEUROLOGICAL: Patient mood and affect appropriate. No focal deficit SKIN:Warm and moist A/P Assessment and Plan 1. Syncope. 2. End-stage renal disease on peritoneal dialysis. 3. Elevated troponin. 4. Bilateral right greater than left pleural effusions. 5. Abdominal pain. 6. History of GI bleeds and AVMs. 7. Hypertension. 8. Diabetes mellitus type 2. 9. 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 DISCUSSION 1. The patient is placed on observation status to Dr. Javier's service. The plan is to run serial troponins. Consult her clearance representative, Dr. Read, to evaluate her as well as Dr. Barrios her pipe turner to help manage her peritoneal dialysis. We will consult Dr. Yang, the ed teacher, to evaluate her for this abdominal discomfort. 2. We will continue her home medications as indicated. 3. We will have physical therapy consulted. 4. DVT prophylaxis. We will continue GI prophylaxis. 5. She will be monitored on telemetry. 6. She is scheduled to have her pacemaker upgrade done at [facility] on August 18, 2016. This will be deferred to Dr. Read if it needs to be moved up and done here or if she will be released prior to then and have it done as planned at [facility]. Aida Jackson August 16, 2016 07:20
--- NOTE | 2016-08-16 08:10 | HHI.PR ---
Subjective Remarks awakens to verbal stimuli HOB elevated 30 degrees tired and weak Constipation Abdominal pain generalized, better this a.m. Afebrile BP labile this morning, fluid bolus 1 500 cc (Aida Jackson) Objective Objective Results - Vital Signs Date Time Temp Pulse Resp B/P Pulse Ox O2 Delivery O2 Flow Rate FiO2 08/16/16 04:42 98.1 80 20 186/87 97 171/97 08/16/16 04:11 87 08/16/16 03:12 79 20 170/82 100 Nasal Cannula 08/16/16 00:22 98.6 75 20 152/88 99 Nasal Cannula 2 08/15/16 23:39 100 08/15/16 22:20 106 20 95 08/15/16 22:12 97.5 106 20 129/60 95 08/15/16 22:05 97.5 106 20 129/60 95 Nasal Cannula 2 08/15/16 22:02 106 20 129/60 95 Nasal Cannula 2 (Aida Jackson) Result Diagram: 08/15/16 2205 08/16/16 0415 ROS General: Fatigue, Weakness (generalized), Other (10 point ROS done positives noted on system assessment otherwise unremarkable, noted to be hypotensive this morning and symptomatic) Cardiac: Edema (upper extremities) GI: Abdominal Pain, BM (small amount and hard consistency), Other (constipation ) Neuro/MS: Other (near-syncope episode on admission, none since) (Aida Jackson) Physical Exam Physical Exam PHYSICAL EXAMINATION GENERAL: This is an obese well-developed, female who appears to be in no acute respiratory distress. She awakens to verbal stimuli, but states she feels really weak and tired HEAD: Normocephalic without any lesion or mass noted. Facial features appear symmetric. OROPHARYNGEAL: Oropharynx without erythema or edema. NECK: Supple. No nuchal rigidity or lymphadenopathy. Trachea midline without deviation. CARDIAC: Regular rhythm, regular rate, S1 and S2 are heard. Murmur soft ,no gallops or rubs. LUNGS: Diminished breath sounds to auscultation bilaterally left more diminished than right. ABDOMEN: Soft round, nontender to light palpation,no masses. Bowel sounds present, Mild distention EXTREMITIES: Generalized extremity upper and lower edema. Pulses intact, weak , NEUROLOGICAL: Patient mood and affect appropriate. Speech is clear, complaints of weakness SKIN:Warm, bruising and petechiae noted on both arms bilateral., Mild diaphoresis noted with low BP (Aida Jackson) A/P Assessment and Plan 1. Syncope. 2. End-stage renal disease on peritoneal dialysis. 3. Elevated troponin. 4. Bilateral right greater than left pleural effusions. 5. Abdominal pain. 6. History of GI bleeds and AVMs. 7. Hypertension. 8. Diabetes mellitus type 2. 9. 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 10 Constipation 11. Hypotension DISCUSSION Vital signs reviewed a.m. BP 186/87. Will add some when necessary meds for BP, when checked this a.m. patient was pale, mild diaphoresis, BP systolic high 80s to 90, where she was hypertensive. Increased IV fluids from 50-125 an hour for a 500 cc bolus. Monitor for any acute shortness of breath. Labs reviewed, leukocytosis mild, elevated lactic acid on admission but trending down. Blood cultures are pending Anemia probably secondary to chronic disease but no acute bleeding noted, Hemoccult and 10. We will monitor again in the a.m., CBC and BMP End-stage renal due to disease, peritoneal dialysis used, patient appears to be extremely debilitated. PT to eval and treat Nephrology consult, pending Elevated troponins, telemetry, spoke to geotechnical intern heart rate appears to be in the 80s, pacemaker is firing Cardiology is consult pending, recent TAVR, systolic murmur noted Patient has pacemaker, scheduled to have her pacemaker upgrade done at [facility] on August 18, 2016. This will be deferred to Dr. Read if it needs to be moved up and done here or if she will be released prior to then and have it done as planned at [facility]. DVT prophylaxis Abdominal pain, patient states generalized, and complaints of constipation. We' ll check for impaction, and give Dulcolax suppository afterwards. Patient states very small BM last night but very hard. GI consult pending. PUD prophylaxis History of hypertension, home meds reconciled we'll monitor vital signs with special attention to BP. Labile Diabetes type 2, Accu-Cheks before meals and at bedtime with sliding scale Mild dyspnea, with low volumes, O2 therapy Discussed With: Nurse, Family, Other (Dr. Javier, seen on his behalf) (Aida Jackson) Assessment and Plan Incision examination detailed as above. With RN at bedside. Agree with 500 bolus as discussed with BRIM BUSTER. Plan of care discussed with BRIM BUSTER Plan to DC nitro paste Continuous telemetry Recheck CBC this morning stat. Patient is a labile blood pressure before she came she is a low blood pressure done very high and now again low urine will monitor. Discussed with patient in detail Left message for daughter Discussed with RN on the floor in detail Condition was critical bolus was given. Total critical time spent in management of this patient direct management is approximately 30 minutes. As patient condition is very labile with multiple medical problem to prevent shock patient warrants inpatient admission. Will admit inpatient. Discussed with cardiology as well. Likely be here 3-4 days. Patient is still lethargic. Discussed with laborer shaft sinking. Discussed with multi line claims adjuster. As per nephrology she has is still some kidney function. And wants to avoid dye. Plan for a stat ultrasound abdomen complete. As discussed with laborer shaft sinking. pt seen again in ICU. alum plant supervisor and laborer shaft sinking on pressors (Louise Javier MD) Aida Jackson August 16, 2016 08:10 Louise Javier MD August 16, 2016 09:14
[2016-08-16] MEDS ORDERED: BISACODYL 10 MG SUPP RECTAL ONE (08:15)
[2016-08-16] MEDS ORDERED: SODIUM CHLORIDE 0.9% FLUSH 10 ML FLUSH IV FLUSH SCH (09:00)
[2016-08-16] MEDS: RANOLAZINE 500 MG EXTENDED RELEASE TAB PO SCH ×2 (09:00→21:00)
[2016-08-16 10:09] LABS: HEMATOCRIT 31.2 % (35.0-46.0); MEAN CELL VOLUME 95.3 FL (80.0-100.0); MEAN CORPUSCULAR HEMOGLOBIN 31.6 PG (27.0-34.0); MEAN CORPUSCULAR HGB CONC 33.1 % (32.0-36.0); PLATELET COUNT 393 TH/MM3 (150-450); RED BLOOD COUNT 3.27 MIL/MM3 (4.00-5.30); RED CELL DISTRIBUTION WIDTH 18.9 % (11.6-17.2); REVIEW FLAG FINAL; WHITE BLOOD COUNT 14.3 TH/MM3 (4.0-11.0)
[2016-08-16 10:30] LABS: BICARBONATE 23.2 MEQ/L (21.0-32.0); POTASSIUM 3.7 MEQ/L (3.5-5.1)
--- NOTE | 2016-08-16 10:50 | MB ---
cc: MINO JOSE DATE OF CONSULTATION: 08/16/2016 HISTORY OF PRESENT ILLNESS Ms. Fuentes is a 86-year-old white female, a patient of Dr. Read, with several week history of abdominal pain. She had a GI evaluation at [facility] by Dr. Yang. She has endstage renal disease and is on peritoneal dialysis. She had a syncopal episode at home. EMS found her to be severely hypotensive. She had mild upper abdominal discomfort. She has not had any chest pain or shortness of breath. Her troponin is slightly elevated but not trending. PAST MEDICAL HISTORY Positive for: 1. Endstage renal disease on peritoneal dialysis. 2. Atrial fibrillation. 3. Diabetes mellitus. 4. Coronary artery disease. 5. Myocardial infarction, no history of intervention. 6. TIA. 7. Hypertension. 8. Anemia. 9. GI bleeding. 10. AV malformation. 11. Aortic stenosis, status post TAVR. 12. Status post permanent pacemaker placement. 13. Hypothyroidism. 14. Possible gastroparesis. 15. Cholecystectomy. 16. Hernia repair. 17. Hysterectomy. 18. Peritoneal dialysis catheter placement. MEDICATION Include: 1. Zofran. 2. Acetaminophen. 3. Amiodarone 200 mg a day. 4. Ranexa. 5. Docusate. 6. Polyethylene Glycol-Propylene ophthalmic drops. 7. Pepcid. 8. Insulin. 9. Furosemide. 10. B-complex. 11. Multivitamin. 12. Baby aspirin. 13. Vitamin C. 14. Vitamin D. 15. Cranberry. . 17. Bethanechol. 18. Plavix. 19. Pantoprazole. 20. Levothyroxine. 21. Folic acid. 22. Cholecalciferol. ALLERGIES ADHESIVES. SOCIAL HISTORY The patient does not smoke. She does not drink alcohol. She lives with her daughter. She walks with a walker. FAMILY HISTORY Negative for heart disease. REVIEW OF SYSTEMS Otherwise negative. PHYSICAL EXAMINATION VITAL SIGNS: Blood pressure 85/50, pulse 82 and regular. HEENT: Negative. NECK: 2+ carotid upstrokes. No bruits. LUNGS: Clear. HEART: Regular with no murmur, gallop or rub. ABDOMEN: Soft. No bruits. EXTREMITIES: Trace edema. 1+ distal pulses. NEUROLOGIC: Grossly nonfocal. EKG EKG was reviewed and showed sinus rhythm and ventricular pacing. LABORATORY DATA Hemoglobin 10.0, potassium 3.5, creatinine 4.1. Troponin is 0.16, 0.13 and 0.14. DIAGNOSIS 1. Syncope. 2. Hypotension. 3. Mildly abnormal troponin secondary to endstage renal disease. 4. Endstage renal disease on peritoneal dialysis. 5. Abdominal pain. 6. History of GI bleeding and AVMs. 7. Hypertension. 8. Diabetes mellitus. 9. Aortic stenosis, status post TAVR in April 2016. 10. Constipation. 11. Coronary artery disease, history of myocardial infarction. DISPOSITION Ms. Fuentes will be monitored on telemetry. She will be evaluated for GI bleeding since she has previous history of GI bleeding. Her troponin is slightly elevated but not trending, this is related to end stage renal disease. I recommend further evaluation for her abdominal pain. We will obtain echocardiogram to evaluate her left ventricular function. I will follow her for cardiology during her hospitalization. She will follow up with Dr. Read, her primary coordinator integrated marketing, in his office after discharge. MD KURT Solis/LUIS /9:25 AM /9:54 AM MTDAlli
[2016-08-16] MEDS ORDERED: ACETAMINOPHEN 325 MG TAB PO PRN (11:00)
[2016-08-16] MEDS ORDERED: CHLORHEXIDINE GLUCONATE 2 % 1 PACK (2 CLOTHS) TOP PRN ×2 (11:00→13:00)
[2016-08-16] MEDS ORDERED: RESP: ALBUTEROL 2.5 MG/IPRATROPIUM 0.5 MG NEB (PRN) INH (11:00)
[2016-08-16] MEDS ORDERED: SODIUM CHLORIDE 0.9% FLUSH 10 ML FLUSH IV FLUSH PRN ×2 (11:00→13:30)
[2016-08-16] MEDS: PANTOPRAZOLE SODIUM 40 MG VIAL IV SCH (11:00)
[2016-08-16] MEDS ORDERED: MISCELLANEOUS NURSING INFORMATION XX SCH ×2 (11:00→13:00)
[2016-08-16] MEDS ORDERED: MAGNESIUM HYDROXIDE SUSP 30 ML CUP PO PRN (11:00)
--- NOTE | 2016-08-16 11:52 | RADRPT ---
EXAM DATE/TIME: 08/16/2016 10:00 [facility] COMPARISON: CT ABDOMEN & PELVIS W/O CONTRAST, August 15, 2016, 23:26. INDICATIONS : Abdominal pain. MEDICAL HISTORY : Hypertension. Arthritis. Diabetes. Renal failure. Skin cancer. Anemia. SURGICAL HISTORY : Cholecystectomy. Hysterectomy. Pacemaker. Umbilical hernia repair. Dialysis port. ENCOUNTER: Initial ACUITY: 1 day PAIN SCORE: 0/10 LOCATION: Bilateral upper quadrant MEASUREMENTS: LIVER: 18.4 cm length COMMON DUCT: 6 mm RIGHT KIDNEY: 10.2 x 4.6 x 5.8 cm LEFT KIDNEY: 10.1 x 3.9 x 4.9 cm SPLEEN: 9.3 cm length AORTA: 1.4cm maximal FINDINGS: LIVER: A coarse heterogeneous echotexture is present throughout the liver. There are no focal lesions or howard dence of ductal dilatation. Portal vein is patent with hepatopedal flow. COMMON DUCT: No intraluminal mass or stone visualized. GALLBLADDER: Status post cholecystectomy PANCREAS: Not well seen. RIGHT KIDNEY: Diffuse cortical thinning and increased echogenicity with 2 cysts. 14 and 19 mm cyst identified in th e midpole. LEFT KIDNEY: Diffuse cortical thinning and increased echogenicity. A 2 mm cyst is identified in the upper pole. Hy perechoic structure measuring a centimeter is identified in the upper pole. SPLEEN: No focal lesion. AORTA: Non aneurysmal. IVC: Within normal limits. CONCLUSION: Hepatomegaly with diffuse parenchymal disease characteristic of steatosis. Free fluid in the abdomen from peritoneal dialysis. Status post cholecystectomy. No evidence of biliary obstructive disease. Bilateral renal cortical atrophy Bilateral renal cysts. Rodolfo Metzger MD on August 16, 2016 at 11:41 Board Certified Radiologist. This report was verified electronically.
[2016-08-16] MEDS ORDERED: TERBUTALINE INJ 1 MG/ML AMP SQ PRN (12:00)
[2016-08-16] MEDS ORDERED: NOREPINEPHRINE-DEXTROSE DRIP 250 ML IV SCH (12:00)
--- NOTE | 2016-08-16 12:21 | RADRPT ---
EXAM DATE/TIME: 08/16/2016 11:25 [facility] COMPARISON: CHEST SINGLE AP, August 15, 2016, 22:07. INDICATIONS : Central line placement. MEDICAL HISTORY : Cardiovascular disease. Hypertension. Renal failure, chronic.Diabetes SURGICAL HISTORY : Umbilical hernia repair. Cholecystectomy.Hysterectomy. ENCOUNTER: Subsequent ACUITY: 4 - 6 days PAIN SCORE: 0/10 LOCATION: Bilateral chest FINDINGS: A single view of the chest demonstrates cardiomegaly. Left-sided pacemaker with 2 intact leads. Right jugular central line with tip in the right atrium.. Osseous structures are intact. There is a stent graft in the left ventricular outflow track/aortic valve. CONCLUSION: Adequate placement of right jugular central line without pneumothorax. Vick Parks MD on August 16, 2016 at 12:17 Board Certified Radiologist. This report was verified electronically.
--- NOTE | 2016-08-16 12:57 | PD.PROCEDR ---
Central Line Procedure REASON FOR PROCEDURE Central venous access PROCEDURE PERFORMED Central line placement: RI J CONSENT Informed consent for procedure was obtained from daughter. The risks and benefits of the procedure were discussed to include but limited to bleeding, clot formation, infection, and even . ANESTHESIA Local injection of 1% Lidocaine DESCRIPTION OF THE PROCEDURE The patient was placed in supine, mild Trendelenburg position. The area was exposed and cleansed with ChloraPrep, times two. Large sterile drape was used to cover the patient, with the site exposed, under sterile conditions including cap, face mask, sterile gown, and sterile gloves. On single attempt, the introducer needle was inserted with negative pressure in syringe and venous flash was obtained. The guide wire was then advanced without any restriction and the needle was removed. The dilator was used without any complications. Using Seldinger technique the 7 F catheter was advanced over the guide wire to a depth of [ ] centimeters. The guide wire was removed. All ports were aspirated with dark venous blood return and flushed easily with sterile saline. All ports were capped. Antibiotic disc was placed around central line at puncture site. The central line was secured to the skin with two interrupted 2.0 silk sutures. The area was bandaged with sterile see-through central line bandage. RADIOLOGICAL DATA Ultrasound guidance was used to locate RIJ. Doppler/color flow was used to confirm venous flow. COMPLICATIONS: No apparent complications ESTIMATED BLOOD LOSS: Less than 1 cc. Stacey Nesbitt MD August 16, 2016 12:57
[2016-08-16 12:59] LABS: REVIEW FLAG FINAL
[2016-08-16] MEDS ORDERED: Vancomycin Consult Pharmacy 1 EA OTHER SCH (13:00)
[2016-08-16] MEDS ORDERED: HEPARIN SODIUM - IV 10,000 UNITS/10 ML VIAL XX PRN (13:30)
--- NOTE | 2016-08-16 13:34 | PD.CONS ---
HPI Service Nephrology Consult Requested By Dr. Javier Reason for Consult ESRD on PD Primary Care Physician Avelina Arauz History of Present Illness Patient is a 86-year-old white female with history of end-stage renal disease, diabetes, hypertension now hypotensive on peritoneal dialysis she had the TAVR done recently and after that developed complications in the left leg require surgery needed the thrombectomy, followed by recurrent infections she has been hospitalized multiple times times she was in the ER and complaining of some abdominal discomfort, she also needs a pacemaker lead placement, according to her daughter she was at home and doing peritoneal dialysis when she passed out and had a syncope her blood pressure was low and she was brought to the emergency, she is transferred to intensive care unit concern is with sepsis she has been started on cefepime abdominal CT scan did not reveal source of infection ultrasound of the abdominal was done showing fatty infiltration of the liver Review of Systems Constitutional: COMPLAINS OF: Fatigue, Dizziness Cardiovascular: COMPLAINS OF: Palpitations, Syncope Gastrointestinal: COMPLAINS OF: Diarrhea Musculoskeletal: COMPLAINS OF: Back pain Neurologic: COMPLAINS OF: Abnormal gait Past Family Social History Allergies: Coded Allergies: Adhesives (Verified Allergy, Severe, BLISTERS, 08/15/16) ALL ADHESIVES (EVEN NON ALLERGENIC) Past Medical History End-stage renal disease Diabetes Hypertension T aVR Cardiomyopathy History of pacemaker Atrial fibrillation Coronary artery disease GI bleed GERD Abdominal pain Past Surgical History Cholecystectomy Tenckhoff catheter. T aVR Left leg thrombectomy Reported Medications Reported Meds & Active Scripts Active Reported Preservision Areds 2 (Multiple Vitamins W/ Minerals) 1 Cap 1 Cap PO BID Aspirin 81 Mg Chew 81 Mg CHEW DAILY Plavix (Clopidogrel Bisulfate) 75 Mg Tab 75 Mg PO DAILY Cranberry Plus Vitamin C (Cranberry-Vitamin C-Vitamin E) 4,200-20-3 Mg-Mg-Unit Cap 1 Cap PO HS Systane Nighttime Opth Oint (White Petrolatum-Mineral Oil Opth Oint) 1 Application Oint 1 Applic EACH EYE HS Bethanechol 25 Mg Tab 25 Mg PO ACHS Pantoprazole (Pantoprazole Sodium) 40 Mg Tab 40 Mg PO DAILY Pepcid (Famotidine) 20 Mg Tab 20 Mg PO BID Zofran Odt (Ondansetron Odt) 4 Mg Tab 4 Mg SL Q4HR PRN Ranexa ER 12 HR (Ranolazine) 500 Mg Tab 500 Mg PO DAILY Amiodarone (Amiodarone HCl) 200 Mg Tab 200 Mg PO DAILY Systane Ultra Opth (Polyethylene Glycol-Propylene Opth) 0.4-0.3% Soln 1 Drop EACH EYE BID Dulcolax Stool Softener (Docusate Sodium) 100 Mg Cap 100 Mg PO HS D3 (Cholecalciferol) 2,000 Unit Tab 2,000 Units PO DAILY Nephro-Clara (B-Complex W/ C & Folic Acid) 1 Tab 1 Tab PO DAILY Levothyroxine (Levothyroxine Sodium) 50 Mcg Tab 50 Mcg PO DAILY Lasix (Furosemide) 40 Mg Tab 40 Mg PO DAILY Folate (Folic Acid) 1 Mg Tab 1 Mg PO DAILY Mapap Arthritis Pain ER 8 HR (Acetaminophen) 650 Mg Tab 650 Mg PO Q4HR PRN Humalog Mix 75-25 Inj (Insulin Lispro Protam/Lispro Human) 1,000 Unit/10 Ml Susp 6 Units SQ AC DINNER Humalog Mix 75-25 Inj (Insulin Lispro Protam/Lispro Human) 1,000 Unit/10 Ml Susp 26 Units SQ AC BREAKFAST Active Ordered Medications Current Medications Medications (Trade) Dose Ordered Sig/Laura Route Start Time Stop Time Status Last Admin (Dulcolax Supp) 10 mg DAILY PRN RECTAL 08/15/16 23:30 (Senokot) 17.2 mg Q12H PRN PO 08/15/16 23:30 08/16/16 06:30 (Heparin Inj) 5,000 units Q12H SQ 08/16/16 06:00 08/16/16 06:28 (Narcan Inj) 0.4 mg UNSCH PRN IV 08/15/16 23:30 (Ranexa) 500 mg Q12HR PO 08/16/16 09:00 (Pepcid) 10 mg BID PO 08/16/16 09:00 (D50w (Vial) Inj) 25 ml UNSCH PRN IV PUSH 08/16/16 00:30 (Glucagon Inj) 1 mg UNSCH PRN OTHER 08/16/16 00:30 (Urecholine) 25 mg Q6HR PO 08/16/16 06:00 08/16/16 06:28 (Nitroglycerin 2% Oint) 1 inch Q6HR TOPICAL 08/16/16 06:00 08/16/16 06:29 (Catapres) 0.1 mg Q6H PRN PO 08/16/16 06:15 (NS Flush) 2 ml UNSCH PRN IV FLUSH 08/16/16 11:00 (NS Flush) 2 ml BID IV FLUSH 08/16/16 21:00 (Tylenol) 650 mg Q6H PRN PO 08/16/16 11:00 (Protonix Inj) 40 mg DAILY IV 08/16/16 11:00 (Zofran Inj) 4 mg Q6H PRN IV 08/16/16 11:00 (Bettye-Colace) 2 tab BID PO 08/16/16 21:00 (Milk Of Magnyvette Liq) 30 ml Q12H PRN PO 08/16/16 11:00 Miscellaneous Information 1 Q361D XX 08/16/16 11:00 (Chlorhexidine 2% Cloth) 3 pack Taper DAILY@04 TOP 08/17/16 04:00 08/13/17 03:59 Chlorhexidine Gluconate 3 pack 3 pack UNSCH PRN TOP 08/16/16 11:00 (Levophed-Dextrose Drip) 250 ml @ 0 mls/hr TITRATE IV 08/16/16 12:00 Terbutaline Sulfate 1 mg 1 mg UNSCH PRN SQ 08/16/16 12:00 Pharmacy Profile Note 0 ml @ 0 mls/hr UNSCH OTHER 08/16/16 13:00 (Maxipime Inj/NS Inj) 100 ml @ 200 mls/hr Q8H IV 08/16/16 14:00 Miscellaneous Information 1 Q361D XX 08/16/16 13:00 (Chlorhexidine 2% Cloth) 3 pack Taper DAILY@04 TOP 08/17/16 04:00 08/13/17 03:59 Chlorhexidine Gluconate 3 pack 3 pack UNSCH PRN TOP 08/16/16 13:00 (Vancomycin Inj/ NS 500 ml Inj) 520 ml @ 250 mls/hr ONCE ONCE IV 08/16/16 15:00 08/16/16 17:04 Family History Noncontributory Social History Denies smoking or alcohol use Physical Exam Vital Signs Vital Signs Date Time Temp Pulse Resp B/P Pulse Ox O2 Delivery O2 Flow Rate FiO2 08/16/16 08:51 90/54 08/16/16 08:08 90/58 08/16/16 07:48 98.1 82 16 75/45 99 08/16/16 04:42 98.1 80 20 186/87 97 171/97 08/16/16 04:11 87 08/16/16 03:12 79 20 170/82 100 Nasal Cannula 08/16/16 00:22 98.6 75 20 152/88 99 Nasal Cannula 2 08/15/16 23:39 100 08/15/16 22:20 106 20 95 08/15/16 22:12 97.5 106 20 129/60 95 08/15/16 22:05 97.5 106 20 129/60 95 Nasal Cannula 2 08/15/16 22:02 106 20 129/60 95 Nasal Cannula 2 Physical Exam GENERAL: Well-nourished, well-developed patient who is sick. SKIN: Cold and dry. HEAD: Normocephalic. EYES: No scleral icterus. No injection or drainage. NECK: Supple, trachea midline. No JVD or lymphadenopathy. CARDIOVASCULAR: Irregular tachycardia RESPIRATORY: Breath sounds equal bilaterally. No accessory muscle use. GASTROINTESTINAL: Abdomen soft, non-tender, nondistended. EXTREMITIES: No cyanosis, or edema. Cold NEUROLOGICAL: Awake, alert, Laboratory Laboratory Tests Test 08/15/16 08/15/16 08/16/16 08/16/16 22:05 22:10 00:10 00:50 White Blood Count 12.5 Red Blood Count 3.13 Hemoglobin 10.0 Hematocrit 29.8 Mean Corpuscular Volume 95.0 Mean Corpuscular Hemoglobin 31.9 Mean Corpuscular Hemoglobin 33.6 Concent Red Cell Distribution Width 18.1 Platelet Count 295 Mean Platelet Volume 8.5 Neutrophils (%) (Auto) 69.2 Lymphocytes (%) (Auto) 22.4 Monocytes (%) (Auto) 6.0 Eosinophils (%) (Auto) 1.4 Basophils (%) (Auto) 1.0 Neutrophils # (Auto) 8.6 Lymphocytes # (Auto) 2.8 Monocytes # (Auto) 0.8 Eosinophils # (Auto) 0.2 Basophils # (Auto) 0.1 CBC Comment DIFF FINAL Differential Comment Prothrombin Time 11.3 Prothromb Time International 1.0 Ratio Activated Partial 27.5 Thromboplast Time Sodium Level 137 Potassium Level 3.7 Chloride Level 100 Carbon Dioxide Level 26.0 Anion Gap 11 Blood Urea Nitrogen 33 Creatinine 3.73 Estimat Glomerular Filtration 12 Rate Random Glucose 149 Calcium Level 9.2 Magnesium Level 2.3 Total Bilirubin 0.4 Aspartate Amino Transf 31 (AST/SGOT) Alanine Aminotransferase 28 (ALT/SGPT) Alkaline Phosphatase 138 Total Creatine Kinase 31 Troponin I 0.16 0.13 B-Type Natriuretic Peptide 3072 Total Protein 7.4 Albumin 2.5 Lipase 412 Lactic Acid Level 2.9 3.6 3.3 Blood Gas Puncture Site LT RADIAL Blood Gas Patient Temperature 98.6 Blood Gas HCO3 23 Blood Gas Base Excess -0.8 Blood Gas Oxygen Saturation 97 Arterial Blood pH 7.43 Arterial Blood Partial 35 Pressure CO2 Arterial Blood Partial 109 Pressure O2 Arterial Blood Oxygen Content 15.0 Arterial Blood 1.3 Carboxyhemoglobin Arterial Blood Methemoglobin 0.4 Blood Gas Hemoglobin 10.9 Oxygen Delivery Device ROOM AIR Blood Gas Inspired Oxygen 21 Procalcitonin 0.26 Test 08/16/16 08/16/16 08/16/16 04:15 10:00 12:42 Sodium Level 138 137 Potassium Level 3.5 3.7 Chloride Level 99 101 Carbon Dioxide Level 25.4 23.2 Anion Gap 14 13 Blood Urea Nitrogen 36 40 Creatinine 4.09 4.07 Estimat Glomerular Filtration 10 10 Rate Random Glucose 147 192 Lactic Acid Level 2.0 3.0 Calcium Level 10.0 9.7 Troponin I 0.14 Lipase 376 White Blood Count 14.3 Red Blood Count 3.27 Hemoglobin 10.3 11.2 Hematocrit 31.2 35.0 Mean Corpuscular Volume 95.3 Mean Corpuscular Hemoglobin 31.6 Mean Corpuscular Hemoglobin 33.1 Concent Red Cell Distribution Width 18.9 Platelet Count 393 Mean Platelet Volume 9.4 Date/Time Procedure Status Source Growth 08/16/16 13:00 Aerobic Blood Culture Received Blood Peripheral Pending 08/16/16 13:00 Anaerobic Blood Culture Received Blood Peripheral Pending 08/16/16 12:35 Stool Occult Blood (SRINATH) Received Stool Stool Pending 08/15/16 22:05 Aerobic Blood Culture - Preliminary Resulted Blood Peripheral NO GROWTH IN 1 DAY 08/15/16 22:05 Anaerobic Blood Culture - Preliminary Resulted Blood Peripheral NO GROWTH IN 1 DAY Result Diagram: 08/16/16 1242 08/16/16 1000 Imaging Last Impressions Chest X-Ray 08/16/16 0000 Signed Impressions: Service Date/Time: Tuesday, August 16, 2016 11:25 - CONCLUSION: Adequate placement of right jugular central line without pneumothorax. Vick Parks MD Abdomen Ultrasound 08/16/16 0000 Signed Impressions: Service Date/Time: Tuesday, August 16, 2016 10:00 - CONCLUSION: Hepatomegaly with diffuse parenchymal disease characteristic of steatosis. Free fluid in the abdomen from peritoneal dialysis. Status post cholecystectomy. No evidence of biliary obstructive disease. Bilateral renal cortical atrophy Bilateral renal cysts. Rodolfo Metzger MD Abdomen/Pelvis CT 08/15/16 [id number] Signed Impressions: Service Date/Time: Monday, August 15, 2016 23:26 - CONCLUSION: 1. No acute abnormality to explain the patient's pain. 2. Peritoneal dialysis catheter with small volume dialysate within the peritoneal cavity. Wellington Adorno Jr., MD Head CT 08/15/16 [id number] Signed Impressions: Service Date/Time: Monday, August 15, 2016 23:22 - CONCLUSION: 1. No acute intracranial abnormality. 2. Chronic small vessel ischemic change. Wellington Adorno Jr., MD Assessment and Plan Problem List: (1) ESRD on peritoneal dialysis Plan: Patient blood pressure improved with the vasopressor we will continue the peritoneal dialysis at nighttime continue outpatient orders follow cultures Discussed with her daughter (2) Syncope and collapse Plan: Likely underlying sepsis versus cardiogenic shock (3) Sepsis Plan: Patient is placed on cefepime and blood cultures have been drawn (4) Paroxysmal a-fib Plan: Plan is to replace the lead once stable (5) DM (diabetes mellitus) Plan: Continue to monitor (6) Abdominal pain Plan: No clear-cut etiology she is having diarrhea stool cultures are pending C. difficile ordered Marian Barrios MD August 16, 2016 13:34
--- NOTE | 2016-08-16 13:47 | PD.CONS ---
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 She presented to the ED with complaints of abdominal pain. The patient has an existing pacemaker, currently V paced, and was scheduled for she a pacemaker lead placement. Per report from her daughter, she was at home in the office doing peritoneal dialysis and had a syncopal episode. It was noted that her blood pressure was low and she was brought to the emergency. Imaging studies were obtained .Abdominal CT scan did not reveal source of infection, abdominal aortic aneurysm was ruled out. Critical care medicine was consulted for treatment and management. Upon entering the patient's room in CDU , the patient was noted to have a blood pressure 70/40, IV fluids were running wide open, the patient was cool clammy and diaphoretic. She was noted to be alert and oriented 3. The patient was transferred to ICU a central line was placed the patient was volume resuscitated and Levophed that was initiated to maintain a MAP greater than 65mmhg. ROS - General Review of Systems Constitutional: COMPLAINS OF: Fatigue, Dizziness Cardiovascular: COMPLAINS OF: Palpitations, Syncope Gastrointestinal: COMPLAINS OF: Diarrhea Musculoskeletal: COMPLAINS OF: Back pain Neurologic: COMPLAINS OF: Abnormal gait PFSH Past Family Social History Allergies: Coded Allergies: Adhesives (Verified Allergy, Severe, BLISTERS, 08/15/16) ALL ADHESIVES (EVEN NON ALLERGENIC) Past Medical History End-stage renal disease Diabetes Hypertension T aVR Cardiomyopathy History of pacemaker Atrial fibrillation Coronary artery disease GI bleed GERD Abdominal pain Past Surgical History Cholecystectomy Tenckhoff catheter. T aVR Left leg thrombectomy Reported Medications Reported Meds & Active Scripts Active Reported Preservision Areds 2 (Multiple Vitamins W/ Minerals) 1 Cap 1 Cap PO BID Aspirin 81 Mg Chew 81 Mg CHEW DAILY Plavix (Clopidogrel Bisulfate) 75 Mg Tab 75 Mg PO DAILY Cranberry Plus Vitamin C (Cranberry-Vitamin C-Vitamin E) 4,200-20-3 Mg-Mg-Unit Cap 1 Cap PO HS Systane Nighttime Opth Oint (White Petrolatum-Mineral Oil Opth Oint) 1 Application Oint 1 Applic EACH EYE HS Bethanechol 25 Mg Tab 25 Mg PO ACHS Pantoprazole (Pantoprazole Sodium) 40 Mg Tab 40 Mg PO DAILY Pepcid (Famotidine) 20 Mg Tab 20 Mg PO BID Zofran Odt (Ondansetron Odt) 4 Mg Tab 4 Mg SL Q4HR PRN Ranexa ER 12 HR (Ranolazine) 500 Mg Tab 500 Mg PO DAILY Amiodarone (Amiodarone HCl) 200 Mg Tab 200 Mg PO DAILY Systane Ultra Opth (Polyethylene Glycol-Propylene Opth) 0.4-0.3% Soln 1 Drop EACH EYE BID Dulcolax Stool Softener (Docusate Sodium) 100 Mg Cap 100 Mg PO HS D3 (Cholecalciferol) 2,000 Unit Tab 2,000 Units PO DAILY Nephro-Clara (B-Complex W/ C & Folic Acid) 1 Tab 1 Tab PO DAILY Levothyroxine (Levothyroxine Sodium) 50 Mcg Tab 50 Mcg PO DAILY Lasix (Furosemide) 40 Mg Tab 40 Mg PO DAILY Folate (Folic Acid) 1 Mg Tab 1 Mg PO DAILY Mapap Arthritis Pain ER 8 HR (Acetaminophen) 650 Mg Tab 650 Mg PO Q4HR PRN Humalog Mix 75-25 Inj (Insulin Lispro Protam/Lispro Human) 1,000 Unit/10 Ml Susp 6 Units SQ AC DINNER Humalog Mix 75-25 Inj (Insulin Lispro Protam/Lispro Human) 1,000 Unit/10 Ml Susp 26 Units SQ AC BREAKFAST Active Ordered Medications Current Medications Medications (Trade) Dose Ordered Sig/Laura Route Start Time Stop Time Status Last Admin (Dulcolax Supp) 10 mg DAILY PRN RECTAL 08/15/16 23:30 (Senokot) 17.2 mg Q12H PRN PO 08/15/16 23:30 08/16/16 06:30 (Heparin Inj) 5,000 units Q12H SQ 08/16/16 06:00 08/16/16 06:28 (Narcan Inj) 0.4 mg UNSCH PRN IV 08/15/16 23:30 (Ranexa) 500 mg Q12HR PO 08/16/16 09:00 (Pepcid) 10 mg BID PO 08/16/16 09:00 (D50w (Vial) Inj) 25 ml UNSCH PRN IV PUSH 08/16/16 00:30 (Glucagon Inj) 1 mg UNSCH PRN OTHER 08/16/16 00:30 (Urecholine) 25 mg Q6HR PO 08/16/16 06:00 08/16/16 06:28 (Nitroglycerin 2% Oint) 1 inch Q6HR TOPICAL 08/16/16 06:00 08/16/16 06:29 (Catapres) 0.1 mg Q6H PRN PO 08/16/16 06:15 (NS Flush) 2 ml UNSCH PRN IV FLUSH 08/16/16 11:00 (NS Flush) 2 ml BID IV FLUSH 08/16/16 21:00 (Tylenol) 650 mg Q6H PRN PO 08/16/16 11:00 (Protonix Inj) 40 mg DAILY IV 08/16/16 11:00 (Zofran Inj) 4 mg Q6H PRN IV 08/16/16 11:00 (Bettye-Colace) 2 tab BID PO 08/16/16 21:00 (Milk Of Magnesia Liq) 30 ml Q12H PRN PO 08/16/16 11:00 Miscellaneous Information 1 Q361D XX 08/16/16 11:00 (Chlorhexidine 2% Cloth) 3 pack Taper DAILY@04 TOP 08/17/16 04:00 08/13/17 03:59 Chlorhexidine Gluconate 3 pack 3 pack UNSCH PRN TOP 08/16/16 11:00 (Levophed-Dextrose Drip) 250 ml @ 0 mls/hr TITRATE IV 08/16/16 12:00 Terbutaline Sulfate 1 mg 1 mg UNSCH PRN SQ 08/16/16 12:00 Pharmacy Profile Note 0 ml @ 0 mls/hr UNSCH OTHER 08/16/16 13:00 (Maxipime Inj/NS Inj) 100 ml @ 200 mls/hr Q8H IV 08/16/16 14:00 Miscellaneous Information 1 Q361D XX 08/16/16 13:00 (Chlorhexidine 2% Cloth) 3 pack Taper DAILY@04 TOP 08/17/16 04:00 08/13/17 03:59 Chlorhexidine Gluconate 3 pack 3 pack UNSCH PRN TOP 08/16/16 13:00 (Vancomycin Inj/ NS 500 ml Inj) 520 ml @ 250 mls/hr ONCE ONCE IV 08/16/16 15:00 08/16/16 17:04 Family History Noncontributory Social History Denies smoking or alcohol use Review of Systems ROS Limitations: Clinical Condition Past Family Social History Allergies: Coded Allergies: Adhesives (Verified Allergy, Severe, BLISTERS, 08/15/16) ALL ADHESIVES (EVEN NON ALLERGENIC) Physical Exam Vital Signs Vital Signs Date Time Temp Pulse Resp B/P Pulse Ox O2 Delivery O2 Flow Rate FiO2 08/16/16 08:51 90/54 08/16/16 08:08 90/58 08/16/16 07:48 98.1 82 16 75/45 99 08/16/16 04:42 98.1 80 20 186/87 97 171/97 08/16/16 04:11 87 08/16/16 03:12 79 20 170/82 100 Nasal Cannula 08/16/16 00:22 98.6 75 20 152/88 99 Nasal Cannula 2 08/15/16 23:39 100 08/15/16 22:20 106 20 95 08/15/16 22:12 97.5 106 20 129/60 95 08/15/16 22:05 97.5 106 20 129/60 95 Nasal Cannula 2 08/15/16 22:02 106 20 129/60 95 Nasal Cannula 2 Physical Exam GENERAL: Critically ill obese female in severe distress with complaints of abdominal pain SKIN: Cool, clammy and diaphoretic. Multiple ecchymotic bruises on skin upper and lower extremities HEAD: Atraumatic. Normocephalic. EYES: Pupils equal and round. No scleral icterus. No injection or drainage. ENT: No nasal bleeding or discharge. Mucous membranes pink and moist. Airway patent. Nasal cannula 2 L/m NECK: Trachea midline. No JVD. CARDIOVASCULAR: Normal rate, 100% ventricular paced. RESPIRATORY: No accessory muscle use. Crackles noted in bases. Breath sounds equal bilaterally. GASTROINTESTINAL: Abdomen soft, protuberant non-tender, nondistended. No rebound tenderness No guarding. MUSCULOSKELETAL: Extremities without clubbing, cyanosis, or edema. No obvious deformities. NEUROLOGICAL: Awake and alert. RASS 0. No gross focal/sensory deficits. Follows commands in all 4 extremities. Laboratory Laboratory Tests Test 08/15/16 08/15/16 08/16/16 08/16/16 22:05 22:10 00:10 00:50 White Blood Count 12.5 Red Blood Count 3.13 Hemoglobin 10.0 Hematocrit 29.8 Mean Corpuscular Volume 95.0 Mean Corpuscular Hemoglobin 31.9 Mean Corpuscular Hemoglobin 33.6 Concent Red Cell Distribution Width 18.1 Platelet Count 295 Mean Platelet Volume 8.5 Neutrophils (%) (Auto) 69.2 Lymphocytes (%) (Auto) 22.4 Monocytes (%) (Auto) 6.0 Eosinophils (%) (Auto) 1.4 Basophils (%) (Auto) 1.0 Neutrophils # (Auto) 8.6 Lymphocytes # (Auto) 2.8 Monocytes # (Auto) 0.8 Eosinophils # (Auto) 0.2 Basophils # (Auto) 0.1 CBC Comment DIFF FINAL Differential Comment Prothrombin Time 11.3 Prothromb Time International 1.0 Ratio Activated Partial 27.5 Thromboplast Time Sodium Level 137 Potassium Level 3.7 Chloride Level 100 Carbon Dioxide Level 26.0 Anion Gap 11 Blood Urea Nitrogen 33 Creatinine 3.73 Estimat Glomerular Filtration 12 Rate Random Glucose 149 Calcium Level 9.2 Magnesium Level 2.3 Total Bilirubin 0.4 Aspartate Amino Transf 31 (AST/SGOT) Alanine Aminotransferase 28 (ALT/SGPT) Alkaline Phosphatase 138 Total Creatine Kinase 31 Troponin I 0.16 0.13 B-Type Natriuretic Peptide 3072 Total Protein 7.4 Albumin 2.5 Lipase 412 Lactic Acid Level 2.9 3.6 3.3 Blood Gas Puncture Site LT RADIAL Blood Gas Patient Temperature 98.6 Blood Gas HCO3 23 Blood Gas Base Excess -0.8 Blood Gas Oxygen Saturation 97 Arterial Blood pH 7.43 Arterial Blood Partial 35 Pressure CO2 Arterial Blood Partial 109 Pressure O2 Arterial Blood Oxygen Content 15.0 Arterial Blood 1.3 Carboxyhemoglobin Arterial Blood Methemoglobin 0.4 Blood Gas Hemoglobin 10.9 Oxygen Delivery Device ROOM AIR Blood Gas Inspired Oxygen 21 Procalcitonin 0.26 Test 08/16/16 08/16/16 08/16/16 04:15 10:00 12:42 Sodium Level 138 137 Potassium Level 3.5 3.7 Chloride Level 99 101 Carbon Dioxide Level 25.4 23.2 Anion Gap 14 13 Blood Urea Nitrogen 36 40 Creatinine 4.09 4.07 Estimat Glomerular Filtration 10 10 Rate Random Glucose 147 192 Lactic Acid Level 2.0 3.0 Calcium Level 10.0 9.7 Troponin I 0.14 Lipase 376 White Blood Count 14.3 Red Blood Count 3.27 Hemoglobin 10.3 11.2 Hematocrit 31.2 35.0 Mean Corpuscular Volume 95.3 Mean Corpuscular Hemoglobin 31.6 Mean Corpuscular Hemoglobin 33.1 Concent Red Cell Distribution Width 18.9 Platelet Count 393 Mean Platelet Volume 9.4 Date/Time Procedure Status Source Growth 08/16/16 13:00 Aerobic Blood Culture Received Blood Peripheral Pending 08/16/16 13:00 Anaerobic Blood Culture Received Blood Peripheral Pending 08/16/16 12:35 Stool Occult Blood (SRINATH) Received Stool Stool Pending 08/15/16 22:05 Aerobic Blood Culture - Preliminary Resulted Blood Peripheral NO GROWTH IN 1 DAY 08/15/16 22:05 Anaerobic Blood Culture - Preliminary Resulted Blood Peripheral NO GROWTH IN 1 DAY Result Diagram: 08/16/16 1242 08/16/16 1000 Imaging Last Impressions Chest X-Ray 08/16/16 0000 Signed Impressions: Service Date/Time: Tuesday, August 16, 2016 11:25 - CONCLUSION: Adequate placement of right jugular central line without pneumothorax. Vick Parks MD Abdomen Ultrasound 08/16/16 0000 Signed Impressions: Service Date/Time: Tuesday, August 16, 2016 10:00 - CONCLUSION: Hepatomegaly with diffuse parenchymal disease characteristic of steatosis. Free fluid in the abdomen from peritoneal dialysis. Status post cholecystectomy. No evidence of biliary obstructive disease. Bilateral renal cortical atrophy Bilateral renal cysts. Rodolfo Metzger MD Abdomen/Pelvis CT 08/15/16 [id number] Signed Impressions: Service Date/Time: Monday, August 15, 2016 23:26 - CONCLUSION: 1. No acute abnormality to explain the patient's pain. 2. Peritoneal dialysis catheter with small volume dialysate within the peritoneal cavity. Wellington Adorno Jr., MD Head CT 08/15/16 [id number] Signed Impressions: Service Date/Time: Monday, August 15, 2016 23:22 - CONCLUSION: 1. No acute intracranial abnormality. 2. Chronic small vessel ischemic change. Wellington Adorno Jr., MD Septic Shock Reassessment Lungs: Crackles Skin: Cold, Moist, Mottled Peripheral Pulses: Weak Right Radial Weak Left Radial Weak Right Dorsalis Pedis Weak Left Dorsalis Pedis Capillary Refill: Brisk Assessment and Plan Assessment and Plan ASSESSMENT Leukocytosis Hypotension Hypothermia Lactic acidosis Presumed septic shock Cardiogenic shock End-stage renal disease Arrhythmia Questionable GI bleed History of GI bleed/AVMs TAVR 04/2016 Pacemaker H/O Hypertension Abdominal pain Obesity Diarrhea PLAN Neuro Neurochecks per ICU protocol Tylenol 650 mg every 6 hours when necessary for pain Temperature currently 95.4-apply air warming device Obtain TSH and cortisol levels CV Obtain pacemaker interrogation Currently 100% ventricular paced Cardiology following-Dr. Prado Echo [id number] results Troponin 0.14-most likely secondary to end-stage renal disease, continue to monitor Obtain BNP Monitor CVP Respiratory Currently O2 at 2 L to maintain sat greater than 92% Begin incentive spirometry-every hour while awake Bronchodilators PRN GI Gastroenterology [id number] recommendations 08/16 CT abdomen/pelvis-no aneurysm 08/16 US complete abdomen-fatty infiltration of the liver Maintain NPO status Obtain C. difficile PCR Obtain Hemoccult Zofran for nausea DVT prophylaxis Protonix Apply fecal containment device Endocrine Glucose monitoring per ICU protocol SSI low-dose regimen Heme/ ID Patient bolus 1 L IV fluid normal saline-the Levophed initiated Obtain serial H&H every 6 hours Lactate 3.0 Follow-up C. difficile PCR Follow-up Hemoccult Obtain blood, urine, sputum and peritoneal fluid cultures Begin empiric antibiotics vancomycin and cefepime Continue to monitor WBC Renal Patient is oliguric-bladder scan every 6 hours, straight catheter for volumes greater than 200 cc Nephrology following-Dr. Barrios Peritoneal dialysis- to be initiated per Dr. Barrios Continue to monitor BMP-potassium level 3.5 DVT prophylaxis SCD's, no pharmacological prophylaxis at this time,R/O GI bleed GI prophylaxis Protonix Dispo: This patient remains critically ill with one or more organ systems which are or may become a threat to life. I have spent in excess of 49 minutes discontinuously in the care and management of this patient. This time is exclusive of procedures, and includes, but is not limited to, evaluation of the patient, review of the medical record, discussions with family, consultants, nursing staff, or respiratory therapy, and documentation in the medical record. Code Status Full Discussed Condition With Patient, daughter, Dr. Barrios and PEPPER CUTTER at bedside. Stacye Nesbitt MD August 16, 2016 13:47
[2016-08-16] MEDS ORDERED: CEFEPIME INJ 2,000 MG in SODIUM CHLORIDE 0.9% INJ 100 ML IV SCH ×4 (14:00)
[2016-08-16 14:18] LABS: C. DIFF EPI 027 PRESUMPTIVE NEGATIVE (NEGATIVE); C. DIFF TOXIN PCR NEGATIVE (NEGATIVE)
[2016-08-16 14:51] LABS: LACTIC ACID GHOST NOT REPORTABLE
[2016-08-16] MEDS ORDERED: VANCOMYCIN INJ 2,000 MG in SODIUM CHLORID 0.9% 500 ML INJ 500 ML IV ONE (15:00)
--- NOTE | 2016-08-16 15:04 | OTSOAPIP ---
TIME SESSION COMPLETED: 1500 TREATMENT TIME: 0 MINS. CHART REVIEWED. INTERDISCIPLINARY COMMUNICATION: NURSING "DA" REQUESTED TO HOLD TREATMENT TODAY TO MEDICAL ISSUES. PLAN: WILL SEE PATIENT NEXT TREATMENT DAY Therapist: SALLY RUSSELL/Ricki Signature on file
[2016-08-16] MEDS: INSULIN ASPART SUPPLEMENTAL SCALE SQ SCH ×2 (16:00→21:40)
[2016-08-16] MEDS: ONDANSETRON HCL 4 MG/2 ML VIAL IV PRN ×2 (16:00→23:38)
[2016-08-16 17:29] LABS: BACTERIA, URINE MANY /hpf; BLOOD, URINE TRACE (NEG); COMMENT (UR) CULTURE INDICATED; CULTURE IF INDICATED CULTURE INDICATED; GLUCOSE,URINE NEG (NEG); KETONE, URINE NEG (NEG); MUCUS URINE FEW /lpf (OCC); NITRITE,URINE NEG (NEG); PH, URINE 6.5 (5.0-8.5); SQUAMOUS EPITHELIAL CELL URINE 2 /hpf (0-5); URINE COLOR YELLOW (YELLW/STRAW)
[2016-08-16 19:03] LABS: PERITONEAL LYMPHS 0 %; PERITONEAL POLYS(SEGS) 100 %; PERITONEAL WBC 46 /MM3 (0-10)
--- NOTE | 2016-08-16 19:22 | EKG ---
Date Performed: 08/16/2016 Time Performed: 05:58:46 PTAGE: 86 years EKG: ELECTRONIC VENTRICULAR PACEMAKER ABNORMAL RHYTHM ECG PREVIOUS TRACING : 02/22/2016 22.35 Compared to prior tracing no significant change DOCTOR: Hussain Prado Interpretating Date/Time 08/16/2016 19:21:28
--- NOTE | 2016-08-16 19:54 | EKG ---
Date Performed: 08/15/2016 Time Performed: 21:50:31 PTAGE: 86 years EKG: ELECTRONIC VENTRICULAR PACEMAKER ABNORMAL RHYTHM ECG Compared to the PREVIOUS TRACING V pacing present DOCTOR: Hussain Prado Interpretating Date/Time 08/16/2016 19:53:35
--- NOTE | 2016-08-16 20:07 | PD.CONS ---
GI Consult GI Consult SEE FORMAL GI CONSULT DICTATED TODAY ALSO ([id number]) ASSESSMENT/PLAN: 1. Diffuse abd pain-? gastroparesis ?low flow state 2. Diarrhea 3. Delayed gastric emptying 4. AVM-small bowel 5. elevated Alk po4 PLAN: 1. Cont BP support and antibiotics 2. Awaiting C. diff 3. GGTP 4. no procedures planned 5. d/w family It was a pleasure seeing Junie Fuentes . Thank you for this consult. Entered by: Edis Knox MD August 16, 2016 20:07
[2016-08-16] MEDS: SODIUM CHLORIDE 0.9% FLUSH 10 ML FLUSH IV FLUSH SCH (21:00)
[2016-08-16] MEDS: DOCUSATE SODIUM 50 MG/SENNA 8.6 MG TAB PO SCH (21:00)
[2016-08-16 21:10] LABS: MEAN CORPUSCULAR HGB CONC 28.9 % (32.0-36.0)
[2016-08-16 22:17] LABS: HEMATOCRIT 36.4 % (35.0-46.0); REVIEW FLAG FINAL
[2016-08-17] VITALS (126 sets, daily range): BP systolic 74–213; BP diastolic 32–105; PULSE 0–70; RESP 11–40; TEMP 97.2–99.4; O2SAT 0–100
[2016-08-17] MEDS ORDERED: ETOMIDATE 20 MG/10 ML VIAL IV PUSH ONE (00:15)
[2016-08-17] MEDS ORDERED: ROCURONIUM INJ 50 MG/5 ML VIAL IV ONE (00:15)
[2016-08-17] MEDS ORDERED: ROCURONIUM INJ 50 MG/5 ML VIAL ONE (00:16)
[2016-08-17] MEDS ORDERED: VASOPRESSIN INJ 40 UNITS in DEXTROSE 5% IN WATER 100ML INJ 98 ML IV SCH ×2 (00:26)
[2016-08-17] MEDS ORDERED: fentaNYL DRIP 250 ML IV SCH (00:30)
[2016-08-17] MEDS: HYDROCORTISONE SOD SUCCINATE 100 MG VIAL IV PUSH SCH ×2 (01:07→05:34)
--- NOTE | 2016-08-17 01:41 | PD.PROCEDR ---
Procedure Note Procedure PROCEDURE NOTE PROCEDURE: Endotracheal intubation INDICATION: Shock with impending respiratory arrest DETAILS OF PROCEDURE: The patient was placed in optimal position and preoxygenated with 100% FiO2 via [id number]. Oximeter oxygen saturation of 99 was obtained prior to direct laryngoscopy. The patient was administered etomidate 20 mg IV for sedation. rocuronium 50 g IV. Direct laryngoscopy was performed with a 4 Glidescope blade and a grade I Cormack-Lehane view was obtained. There was pooling of dark brown regurgitant fluid in posterior oropharynx. On single attempt a size 7.5 endotracheal tube was visualized passing through the cords. Correct placement was confirmed with colorimetric CO2 detector. Breath sounds were equal bilaterally. No sounds auscultated over the stomach. The endotracheal tube was secured with a commercial tube meyer at a depth of 22 cm at the lips. The patient was connected to the ventilator. The patient tolerated the procedure well without any apparent complication. Oxygen saturations were maintained greater than 98% at all times. Stat chest x-ray was ordered. Ciara Gandhi MD August 17, 2016 01:41
[2016-08-17] MEDS: BETHANECHOL CHL 25 MG TAB PO SCH ×3 (02:15→06:00)
[2016-08-17] MEDS: FAMOTIDINE 20 MG TAB PO SCH ×2 (02:15→10:09)
[2016-08-17] MEDS: SODIUM CHLOR 0.9% 1000 ML INJ 1,000 ML IV SCH (02:15)
--- NOTE | 2016-08-17 03:06 | RADRPT ---
EXAM DATE/TIME: 08/17/2016 02:00 [facility] COMPARISON: CHEST SINGLE AP, August 16, 2016, 11:25. INDICATIONS : E-T tube placement. MEDICAL HISTORY : Cardiovascular disease. Hypertension Renal failure, chronic. Diabetes SURGICAL HISTORY : Umbilical hernia repair. Cholecystectomy. Hysterectomy. ENCOUNTER: Subsequent ACUITY: 4 - 6 days PAIN SCORE: Non-responsive. LOCATION: Bilateral chest FINDINGS: A single portable frontal view of the chest shows an endotracheal tube with the tip 5 cm from the car layo. Nasogastric tube, right-sided central line, and left-sided pacing device again noted. Stent over lies the aortic valve region. Heart is normal in size. No pneumothorax. No infiltrates or effusions. CONCLUSION: 1. Lines and tubes. 2. Clear lungs. Wellington Adorno Jr., MD on August 17, 2016 at 3:04 Board Certified Radiologist. This report was verified electronically.
[2016-08-17] MEDS ORDERED: CHLORHEXIDINE GLUCONATE 2 % 1 PACK (2 CLOTHS) TOP SCH ×2 (04:00)
[2016-08-17 04:18] LABS: BLOOD GAS BASE EXCESS -14.9 mmol/L (-2-2); BLOOD GAS CARBOXYHEMOGLOBIN 0.9 % (0-4); BLOOD GAS HCO3 11 mmol/L (22-26); BLOOD GAS METHEMOGLOBIN 1.3 % (0-2); BLOOD GAS O2 HGB SATURATION 97 % (90-100); BLOOD GAS OXYGEN CONTENT 16.7 Vol % (12.0-20.0); BLOOD GAS PCO2 27 mmHg (38-42); BLOOD GAS PO2 398 mmHg (61-120); BLOOD GAS TOTAL HGB 11.4 G/DL (12.0-16.0); TEMP CORR TO 98.6
[2016-08-17 04:19] LABS: CRITICAL VALUE YES
[2016-08-17 04:20] LABS: OXYGEN DEVICE VENTILATOR
[2016-08-17 04:21] LABS: DRAW SITE LT BRACHIAL; FIO2 100 %; NUMBER OF ARTERIAL PUNCTURES 1; STAT YES; ULNAR PULSE PRESENT
[2016-08-17] MEDS ORDERED: SODIUM BICARBONATE 8.4% INJ 50 MEQ/50 ML SYR IV PUSH ONE (05:00)
[2016-08-17] MEDS ORDERED: SODIUM BICARBONATE 8.4% INJ 150 MEQ in WATER STERILE FOR INJ 850 ML IV SCH (05:30)
[2016-08-17] MEDS: HEPARIN SODIUM - SQ 10,000 UNITS/ML VIAL SQ SCH (05:34)
[2016-08-17] MEDS: NITROGLYCERIN 2% OINT 1 GM PACKET TOPICAL SCH (05:35)
[2016-08-17 05:58] LABS: HEMATOCRIT 36.8 % (35.0-46.0); MEAN CELL VOLUME 100.6 FL (80.0-100.0); MEAN CORPUSCULAR HEMOGLOBIN 30.8 PG (27.0-34.0); MEAN CORPUSCULAR HGB CONC 30.6 % (32.0-36.0); PLATELET COUNT 280 TH/MM3 (150-450); RED BLOOD COUNT 3.65 MIL/MM3 (4.00-5.30); RED CELL DISTRIBUTION WIDTH 18.7 % (11.6-17.2); REVIEW FLAG FINAL
[2016-08-17] MEDS: INSULIN ASPART SUPPLEMENTAL SCALE SQ SCH ×2 (06:06→11:00)
[2016-08-17 06:22] LABS: POTASSIUM 4.1 MEQ/L (3.5-5.1)
--- NOTE | 2016-08-17 07:39 | MB ---
cc: SADIA YANG,EDIS HOANG M.D. DATE OF CONSULTATION 08/16/2016 DATE OF 1930 REASON FOR CONSULTATION I have been asked to see this patient at the request of Dr. Javier for evaluation of abdominal pain. BRIEF HISTORY The patient is an 86-year white female who has been followed by Dr. Yang in the office. Much of the history was obtained from the patient's daughter and partially from the patient (the patient's blood pressure is low and she was only partially communicative). I have also reviewed old records in the office. Apparently Dr. 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 Dr. Yang first did an upper endoscopy on her in September of 2015 and this revealed severe gastritis and a periampullary diverticulum Biopsies did not show anything that significant as far as any H. pylori is concerned. The upper endoscopy was being done for anemia and reportedly she may have had melena. Subsequently in October of last year she has had a colonoscopy which revealed diverticulosis and some polyps. The polyps were serrated. Subsequent capsule endoscopy in November of last year revealed multiple AVMs in the small intestines. In June of this year she was admitted to [facility] with an elevated temperature and UTI. The cultures revealed a Klebsiella UTI. In the hospital she was given Reglan for delayed gastric emptying and improved some of her GI symptoms. She was seen by Dr. Yang in July of this year and Dr. Yang appropriately did not want her on long-term Reglan and switched her to bethanechol. Since that time she had been in the ER a few times and eventually her Prilosec was changed to Protonix. By staying on the Protonix and sometimes Pepcid AC, she felt reasonably well as far as the gastroparesis was concerned, although she believed that the Reglan worked better than the bethanechol. She has been complaining of some vague, diffuse abdominal discomfort associated with nausea. There is no rhyme or reason. Sometimes it is worse with meals, sometimes not. Dr. Yang, as mentioned, had been adjusting her medications and the plan was for possibly upper endoscopy on her but apparently she is supposed to have a pacemaker change coming up. Yesterday evening during the patient's peritoneal dialysis, it was noted that she became cold and clammy and essentially unresponsive. She has also had some constipation and had been taking a laxative in that regard but had not had a bowel movement. She was then brought to the emergency room and subsequently admitted to the ICU with a diagnosis of sepsis/shock. There has been no vomiting known and there is no nausea or vomiting right now. The nurse mentioned that she had a large episode of diarrhea and stools was sent off for C-diff which is still pending. There was no blood in the stool and she has been hemoccult-negative. The pain is diffuse and described as ranging between mild to severe. It is ill-defined. She cannot describe if it is crampy or sharp. Again, no provocative or palliative features. She is currently getting Levophed to maintain her blood pressure since her blood pressure has been low. ALLERGIES ADHESIVE TAPE. PAST MEDICAL HISTORY Significant for - 1. Atrial fibrillation. 2. End-stage renal disease on peritoneal dialysis. 3. She has had TIAs. 4. Diabetes. 5. Hypertension. 6. Anemia. 7. GI bleeding. 8. AVMs of the small intestine. 9. Gastritis. 10. Serrated adenomatous colon polyps. 11. Chronic diverticulosis. 12. Aortic stenosis. 13. Hypothyroidism. 14. Delayed gastric emptying - presumably gastroparesis. 15. Recent syncope. 16. Coronary artery disease. 17. OK in the past. 18. Recent Klebsiella UTI in July. 19. She has also had gastritis. PAST SURGICAL HISTORY 1. Cholecystectomy. 2. Cardiac catheterization. 3. Pacemaker. 4. Upper and lower endoscopy. 5. Hysterectomy. 6. Inguinal hernia repair. SOCIAL HISTORY Does not smoke or drink. FAMILY HISTORY Not contributory for any colon cancer or colon polyps. REVIEW OF SYSTEMS CONSTITUTIONAL: No weight loss, fever or chills. CARDIOPULMONARY: No chest pain, palpitations, wheezing or shortness of breath. GASTROINTESTINAL: Please see above. She denies any current melena or hematochezia or heartburn issues. Otherwise unremarkable for a 10-point review of systems. Much of the history could not be completely obtained from the patient, however. MEDICATIONS IN THE HOSPITAL. 1. Bettye-Colace. 2. NovoLog. 3. Glucagon. 4. Cefepime. 5. Heparin. 6. Norepinephrine. 7. Terbutaline. 8. Tylenol. 9. Protonix. 10. Zofran. 11. Milk of Magnesia. 12. Albuterol. 13. Ranexa. 14. Pepcid. 15. Catapres. 16. Heparin. 17. Bethanechol. 18. Nitroglycerin. 19. Dulcolax. 20. Senokot. 21. Narcan. 22. She was given vancomycin one time. PHYSICAL EXAMINATION VITAL SIGNS: Blood pressure has been low, was in the 70s, right now is 91/55, respiratory rate 28, temperature 95.3, pulse of 62. GENERAL: In general she is an ill-appearing white female, cold, clammy, appears to be no GI distress as far as GI bleeding is concerned. HEENT: Pupils are equal and reactive to light. No obvious scleral icterus. Oropharynx - no dental caries. No tongue deviation or candidal lesion. Hearing was intact. NECK: Supple. No thyromegaly or lymphadenopathy. LUNGS: Clear to auscultation and percussion. HEART: Somewhat irregular and a small murmur. ABDOMEN: Soft. Mild diffuse tenderness throughout and some voluntary guarding but no rebound tenderness, organomegaly or masses. EXTREMITIES: Cold and clammy. There is no cyanosis or clubbing. RECTAL EXAM: Not done. Shows heme-negative. NEUROLOGIC: Cranial nerves could not be completely assessed. She appears alert to person and place but not to time. DATA BASE The head CT scan did not show any acute abnormality. There appears to be some chronic small vessel ischemic change. CT scan of the abdomen and pelvis done without IV contrast revealed a peritoneal dialysis catheter with small volume abdominal fluid within the peritoneal cavity. There is nothing seen to explain her pain. An ultrasound of the abdomen showed fatty liver and hepatomegaly. There is some bilateral renal cortical atrophy, bilateral renal cysts and some fluid in the abdomen due to peritoneal dialysis. Laboratories on admission revealed a BUN of 33, creatinine of 3.7, both elevated with potassium of 3.7. Lactic acid 2.5 - elevated. SGOT of 31, SGPT of 28, alk phos of 138. CPK of 31. Troponin is elevated at 0.16 and 0.13. Lipase of 412 which is elevated. Today her lactic acid is 4.2 - elevated. Troponin 0.19. Creatinine is 4.07 with a BUN of 40. Hematologically, the white blood cell count was 12,500, hemoglobin 10, hematocrit 29.8, MCV of 95, platelet count of 295,000. That was yesterday. Today white blood cell count is 14, 300, hemoglobin 10.3. This afternoon the hemoglobin is 11.2 with hematocrit of 35. Stools are negative for blood. Stool for C-difficile not sent off yet per the nurse. Stool hemoccults are negative. Peritoneal fluid cultures are pending. Blood cultures are pending. IMPRESSION 1. Diffuse abdominal pain. Initially when her pain get worse, it was after she was switched from Reglan to bethanechol. Around the same time she was given some relief with switching her Prilosec to Protonix and adding Pepcid AC. This could point to an acid peptic process or just simple worsening gastroparesis. However, the current pain is different and her blood pressure is low and that she may have a low-flow state to her GI tract playing a role in her symptoms. There is no sign of ischemic bowel on the CAT scan (no thickening of the bowel). Possibility of being related to adhesions, infected peritoneal dialysis fluid, is unclear. 2. Diarrhea. Previously the patient was constipated. The diarrhea may represent laxatives starting to work, however, she was in the hospital a few months ago and I cannot rule out C-difficile. A C-diff was sent off by the nurse. 3. History of delayed gastric emptying. As mentioned above, this may be gastroparesis playing a role in her situation. 4. History of GI bleeding in the past. Apparently in July of 2016 she also had heme-positive stool. She had previous AVMs noted in the small intestine, suspect this is the source of bleeding. Right now she is heme-negative. 5. Elevated alkaline phosphatase, only minimally. We need to determine whether it came from bone or liver. No signs of ductal dilatation seen on the ultrasound or CAT scan. RECOMMENDATIONS 1. Continue blood pressure support and antibiotics. 2. Await C-diff. 3. Please check GGTP. 4. I had a detailed discussion with the patient and the patient's daughter. If this is a low-flow state (basically actually intestinal angina), fluids and keeping the blood pressure up will hopefully improve this. Ideally, elect to do a CT angiography her MR angiography but, according to her daughter, the patient still makes urine and her condominium manager does not want to give any IV contrast. Right now there is no gross blood or microscopic blood in the stool and there is no evidence of any inflammation of the colon, so I do not think she has full-blown intestinal angina or infarction. Her current low blood pressure and shock could also be related to an infection and I am hoping that, with antibiotics and fluids and blood pressure support, we can get her through this critical stage. 5. No plans of any upper endoscopy or colonoscopy at present. Edis Mcnamara MD SP/SSB /7:49 PM /8:51 AM
[2016-08-17 07:45] LABS: LACTIC ACID GHOST NOT REPORTABLE
[2016-08-17] MEDS ORDERED: CHLORHEXIDINE 0.12% (ORAL KIT) 15 ML CUP MT SCH (08:00)
[2016-08-17] MEDS: SODIUM CHLORIDE 0.9% FLUSH 10 ML FLUSH IV FLUSH SCH (09:00)
[2016-08-17] MEDS: RANOLAZINE 500 MG EXTENDED RELEASE TAB PO SCH (09:00)
[2016-08-17] MEDS: DOCUSATE SODIUM 50 MG/SENNA 8.6 MG TAB PO SCH (10:09)
[2016-08-17] MEDS: PANTOPRAZOLE SODIUM 40 MG VIAL IV SCH (10:10)
--- NOTE | 2016-08-17 10:43 | HHI.PR ---
Subjective Remarks Patient intubated and sedated Daughter and RN at bedside Objective Objective Results - Vital Signs Date Time Temp Pulse Resp B/P Pulse Ox O2 Delivery O2 Flow Rate FiO2 08/17/16 09:50 60 22 84/50 100 08/17/16 09:45 60 23 100 08/17/16 09:40 60 23 86/52 100 08/17/16 09:30 60 23 88/56 100 08/17/16 09:20 60 24 83/51 100 08/17/16 09:15 60 25 99 08/17/16 09:11 60 24 91/54 100 08/17/16 09:00 60 24 90/54 100 08/17/16 08:50 60 23 87/54 100 08/17/16 08:45 60 23 100 08/17/16 08:40 61 23 83/53 100 08/17/16 08:34 63 23 77/44 100 08/17/16 08:32 61 22 74/42 100 08/17/16 08:31 61 22 79/51 100 08/17/16 08:30 60 23 100 08/17/16 08:20 60 22 104/56 99 08/17/16 08:15 60 22 99 08/17/16 08:10 60 22 106/56 100 08/17/16 08:04 100 40 08/17/16 08:00 97.8 60 22 105/55 100 08/17/16 06:00 60 22 105/51 100 08/17/16 06:00 60 08/17/16 05:43 100 50 08/17/16 05:20 60 22 113/56 100 08/17/16 05:05 61 22 108/58 100 08/17/16 05:00 60 08/17/16 04:50 60 22 102/52 100 08/17/16 04:40 60 22 97/55 100 08/17/16 04:30 60 22 89/52 100 08/17/16 04:20 60 22 87/51 100 08/17/16 04:17 60 22 83/51 100 08/17/16 04:12 60 22 84/47 100 08/17/16 04:10 60 22 84/45 100 08/17/16 04:01 97.2 60 22 84/49 100 08/17/16 04:00 100 08/17/16 04:00 61 08/17/16 03:00 60 22 89/57 100 08/17/16 03:00 66 08/17/16 02:40 62 22 83/51 100 08/17/16 02:30 63 22 87/54 100 08/17/16 02:20 63 22 84/52 100 08/17/16 02:10 63 22 85/51 100 08/17/16 02:03 62 22 94/50 100 08/17/16 02:00 66 08/17/16 02:00 60 22 100 08/17/16 01:21 60 22 98/48 100 08/17/16 01:18 60 22 97/48 100 08/17/16 01:15 60 22 96/49 100 08/17/16 01:12 60 22 92/46 100 08/17/16 01:09 60 22 91/45 100 08/17/16 01:06 60 22 99/52 100 08/17/16 01:03 60 22 92/52 100 08/17/16 01:00 66 08/17/16 01:00 60 22 91/52 100 08/17/16 00:57 60 22 91/51 100 08/17/16 00:55 94 100 08/17/16 00:54 60 22 91/49 100 08/17/16 00:51 60 22 93/48 99 08/17/16 00:48 60 22 94/48 08/17/16 00:46 60 22 89/50 94 08/17/16 00:43 61 22 91/44 92 08/17/16 00:40 60 22 119/53 96 08/17/16 00:36 60 19 140/63 100 08/17/16 00:34 100 08/17/16 00:33 60 40 130/63 91 08/17/16 00:30 60 39 125/58 90 08/17/16 00:27 60 39 120/56 93 08/17/16 00:26 97.6 60 37 116/56 95 08/17/16 00:00 66 08/16/16 23:00 66 08/16/16 22:00 66 08/16/16 21:00 66 08/16/16 20:24 99 Nasal Cannula 2.00 08/16/16 20:19 66 19 124/60 100 08/16/16 20:18 66 20 122/89 99 08/16/16 20:16 66 17 110/59 98 08/16/16 20:15 67 17 101/54 100 08/16/16 20:00 66 08/16/16 20:00 96.7 66 30 123/64 98 08/16/16 19:45 67 30 123/56 99 08/16/16 19:30 67 32 86/50 98 08/16/16 19:15 65 32 88/55 99 08/16/16 19:00 66 08/16/16 19:00 65 30 99/50 99 08/16/16 18:57 65 08/16/16 18:45 95.3 62 28 91/55 100 08/16/16 18:30 62 29 97/54 100 08/16/16 18:15 62 30 103/56 100 08/16/16 18:00 63 26 101/51 100 08/16/16 17:45 64 44 94/48 100 08/16/16 17:31 80 31 88/53 99 08/16/16 17:30 80 33 99 08/16/16 17:15 80 33 90/52 100 08/16/16 17:00 80 30 104/55 100 08/16/16 17:00 80 08/16/16 16:45 80 27 99/50 100 08/16/16 16:30 80 22 95/49 99 08/16/16 16:15 80 27 104/51 100 08/16/16 16:09 80 08/16/16 16:05 98.0 79 29 148/87 100 08/16/16 16:00 95.0 08/16/16 16:00 80 24 101/52 100 08/16/16 14:33 87 08/16/16 12:15 79 29 110/55 100 08/16/16 12:10 79 27 116/56 100 08/16/16 12:05 79 29 110/56 100 08/16/16 12:00 79 28 112/58 100 08/16/16 12:00 94.5 80 16 97/54 98 08/16/16 11:55 79 28 106/53 99 17 11:50 79 31 107/55 100 17 11:45 80 31 104/53 99 17 11:40 80 34 104/54 99 08/16/16 11:35 80 27 104/53 99 08/16/16 11:33 80 29 102/53 100 08/16/16 11:30 80 26 110/57 100 08/16/16 11:27 80 27 108/55 100 08/16/16 11:25 80 28 107/56 100 08/16/16 11:22 80 26 100/56 100 08/16/16 11:20 80 18 99/57 100 08/16/16 11:17 80 54 92/54 100 08/16/16 11:15 80 33 87/53 100 08/16/16 11:12 80 27 82/50 98 08/16/16 11:11 80 80/47 99 I/O 08/16/16 08/16/16 08/16/16 08/17/16 08/17/16 08/17/16 07:00 15:00 23:00 07:00 15:00 23:00 Intake Total 1000 ml 2084 ml 391 ml Output Total 50 ml 250 ml 100 ml Balance 950 ml 1834 ml 291 ml Intake Oral 0 ml 200 ml IV Total 1000 ml 1884 ml 391 ml Output Urine Total 50 ml 250 ml 100 ml # Voids 1 # Bowel Movements 1 3 Result Diagram: 08/17/16 0400 08/17/16 0400 Other Results Laboratory Tests Test 08/16/16 08/16/16 08/16/16 08/16/16 12:35 12:42 14:38 15:30 Nasal Screen MRSA (PCR) MRSA NOT DETECTED Stool C. difficile Toxin (PCR) NEGATIVE Stl C. difficile Toxin PRESUMPTIVE Epiderm 027 NEGATIVE Hemoglobin 11.2 Hematocrit 35.0 Lactic Acid Level 3.0 4.2 Peritoneal Fluid WBC 46 Peritoneal Fluid RBC 2164 Peritoneal Fluid Neutrophils 100 Peritoneal Fluid Lymphocytes 0 Troponin I 0.19 B-Type Natriuretic Peptide 2752 Thyroid Stimulating Hormone 2.440 3rd Gen Random Cortisol 134.2 Test 08/16/16 08/16/16 08/17/16 08/17/16 16:50 20:43 04:00 05:22 Urine Color YELLOW Urine Turbidity HAZY Urine pH 6.5 Urine Specific [place] 1.012 Urine Protein 100 Urine Glucose (UA) NEG Urine Ketones NEG Urine Occult Blood TRACE Urine Nitrite NEG Urine Bilirubin NEG Urine Urobilinogen LESS THAN 2.0 Urine Leukocyte Esterase LARGE Urine RBC 1 Urine WBC 101 Urine WBC Clumps MOD Urine Squamous Epithelial 2 Cells Urine Bacteria MANY Urine Mucus FEW Microscopic Urinalysis Comment CULTURE INDICATED Hemoglobin 11.4 11.2 Hematocrit 36.4 36.8 Troponin I 0.21 White Blood Count 18.0 Red Blood Count 3.65 Mean Corpuscular Volume 100.6 Mean Corpuscular Hemoglobin 30.8 Mean Corpuscular Hemoglobin 30.6 Concent Red Cell Distribution Width 18.7 Platelet Count 280 Mean Platelet Volume 9.5 Blood Gas Puncture Site LT BRACHIAL Blood Gas Patient Temperature 98.6 Blood Gas HCO3 11 Blood Gas Base Excess -14.9 Blood Gas Oxygen Saturation 97 Arterial Blood pH 7.24 Arterial Blood Partial 27 Pressure CO2 Arterial Blood Partial 398 Pressure O2 Arterial Blood Oxygen Content 16.7 Arterial Blood 0.9 Carboxyhemoglobin Arterial Blood Methemoglobin 1.3 Blood Gas Hemoglobin 11.4 Oxygen Delivery Device VENTILATOR Blood Gas Ventilator Setting COMMENT Blood Gas Inspired Oxygen 100 Sodium Level 139 Potassium Level 4.1 Chloride Level 102 Carbon Dioxide Level 16.0 Anion Gap 21 Blood Urea Nitrogen 45 Creatinine 4.74 Estimat Glomerular Filtration 9 Rate Random Glucose 207 Calcium Level 8.8 Lactic Acid Level 9.1 Date/Time Procedure Status Source Growth 08/16/16 16:50 Urine Culture Received Urine Random Urine Pending 08/16/16 16:50 Legionella Antigen - Final Complete Urine Random Urine PRESUMPTIVE NEGATIVE FOR LEGIONELLA P... 08/16/16 14:38 Gram Stain - Final Resulted Fluid Peritoneal Fluid 08/16/16 14:38 Body Fluid Culture Resulted Fluid Peritoneal Fluid Pending 08/16/16 14:38 Gram Stain Received Fluid Peritoneal Fluid Pending 08/16/16 14:38 Body Fluid Culture Received Fluid Peritoneal Fluid Pending 08/16/16 14:38 Fungal Smear - Final Resulted Fluid Peritoneal Fluid NO FUNGAL ELEMENTS SEEN. 08/16/16 14:38 Fungal Culture Resulted Fluid Peritoneal Fluid Pending 08/16/16 13:00 Aerobic Blood Culture Received Blood Peripheral Pending 08/16/16 13:00 Anaerobic Blood Culture Received Blood Peripheral Pending 08/16/16 12:35 Stool Occult Blood (SRINATH) - Final Complete Stool Stool HEMOCCULT NEGATIVE 08/15/16 22:05 Aerobic Blood Culture - Preliminary Resulted Blood Peripheral NO GROWTH IN 1 DAY 08/15/16 22:05 Anaerobic Blood Culture - Preliminary Resulted Blood Peripheral NO GROWTH IN 1 DAY Physical Exam Physical Exam GENERAL: This is an obese well-developed, female intubated and sedate HEAD: Normocephalic without any lesion or mass noted. Facial features appear symmetric. OROPHARYNGEAL: With the ET and OG tube NECK: Supple. No nuchal rigidity or lymphadenopathy. Trachea midline without deviation. CARDIAC: Regular rhythm, regular rate, S1 and S2 are heard. Murmur soft ,no gallops or rubs. LUNGS: Diminished breath sounds to auscultation bilaterally left more diminished than right. ABDOMEN: Soft round, no masses. Bowel sounds decreased, Mild distention EXTREMITIES: Generalized extremity upper and lower edema. Pulses intact, weak , NEUROLOGICAL: Intubated insulin (Aida Jackson) Plan A/P Assessment and Plan 1. Syncope. 2. End-stage renal disease on peritoneal dialysis. 3. Elevated troponin. 4. Bilateral right greater than left pleural effusions. 5. Abdominal pain. 6. History of GI bleeds and AVMs. 7. Hypertension. 8. Diabetes mellitus type 2. 9. 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 10 Constipation 11. Hypotension DISCUSSION Vital signs reviewed a.m. BP 186/87. Will add some when necessary meds for BP, when checked this a.m. patient was pale, mild diaphoresis, BP systolic high 80s to 90, where she was hypertensive. Increased IV fluids from 50-125 an hour for a 500 cc bolus. Monitor for any acute shortness of breath. Labs reviewed, leukocytosis mild, elevated lactic acid on admission but trending down. Blood cultures are pending Anemia probably secondary to chronic disease but no acute bleeding noted, Hemoccult and 10. We will monitor again in the a.m., CBC and BMP End-stage renal due to disease, peritoneal dialysis used, patient appears to be extremely debilitated. PT to eval and treat Nephrology consult, pending Elevated troponins, telemetry, spoke to instrumentation technologist heart rate appears to be in the 80s, pacemaker is firing Cardiology is consult pending, recent TAVR, systolic murmur noted Patient has pacemaker, scheduled to have her pacemaker upgrade done at [facility] on August 18, 2016. This will be deferred to Dr. Read if it needs to be moved up and done here or if she will be released prior to then and have it done as planned at [facility]. DVT prophylaxis Abdominal pain, patient states generalized, and complaints of constipation. We' ll check for impaction, and give Dulcolax suppository afterwards. Patient states very small BM last night but very hard. GI consult pending. PUD prophylaxis History of hypertension, home meds reconciled we'll monitor vital signs with special attention to BP. Labile Diabetes type 2, Accu-Cheks before meals and at bedtime with sliding scale Mild dyspnea, with low volumes, O2 therapy Discussed With: Nurse, Family, Other (Dr. Javier, seen on his behalf) (Aida Jackson) Assessment and Plan Incision examination detailed as above. With RN at bedside. Agree with 500 bolus as discussed with PIN DRAFTING MACHINE TENDER. Plan of care discussed with PIN DRAFTING MACHINE TENDER Plan to DC nitro paste Continuous telemetry Recheck CBC this morning stat. Patient is a labile blood pressure before she came she is a low blood pressure done very high and now again low urine will monitor. Discussed with patient in detail Left message for daughter Discussed with RN on the floor in detail Condition was critical bolus was given. Total critical time spent in management of this patient direct management is approximately 30 minutes. As patient condition is very labile with multiple medical problem to prevent shock patient warrants inpatient admission. Will admit inpatient. Discussed with cardiology as well. Likely be here 3-4 days. Patient is still lethargic. Discussed with power tool repair technician. Discussed with hand wood sander. As per nephrology she has is still some kidney function. And wants to avoid dye. Plan for a stat ultrasound abdomen complete. As discussed with power tool repair technician. pt seen again in ICU. dw boat assembler and power tool repair technician on pressors (Louise Javier MD) Aida Jackson August 16, 2016 08:10 Louise Javier MD August 16, 2016 09:14 A/P Assessment and Plan Shock likely septic/Cardiogenic shock Leukocytosis Hypothermia Severe Lactic acidosis Slight abdominal pain on admission End-stage renal disease Arrhythmia status post pacemaker Questionable GI bleed History of GI bleed/AVMs TAVR 04/2016 H/O Hypertension Obesity Diarrhea Labs reviewed On broad spectrum antibiotic will add Diflucan Plan for infectious disease consult Appreciate power tool repair technician GI and cardiology input Appreciate nephrology input Continue peritoneal dialysis as per hand wood sander Will send paratonia fluid culture again Continue pressor support on as-needed basis Discussed with power tool repair technician in detail Consult general surgery. Discussed with general surgeon. Plan for CT abdomen with oral contrast a stat Vent management as per power tool repair technician GI prophylaxis SCD for DVT prophylaxis Labs for tomorrow Condition critical prognosis guarded to poor Discussed with daughter at bedside in detail Discussed with RN Total time spent more than 35 minutes in management of this critically ill patient Discussed With: Nurse, Family, Other (Dr. Javier, seen on his behalf) Louise Javier MD August 17, 2016 10:43
[2016-08-17] MEDS ORDERED: DIATRIZOATE MEGLUM/DIATRIZOATE SOD 9 ML CUP PO ONE (10:48)
--- NOTE | 2016-08-17 10:54 | HHI.GIFU ---
GI Follow-up Note Consult Follow-up Subjective: Patient no intubated. no overt GI bleeding Objective: PHYSICAL EXAMINATION: Vitals signs ok on pressors No fever HEENT: no jaundice. NECK: Neck is supple, no JVD, no lymphadenopathy. CARDIAC: Regular rate and rhythm with no murmur gallop or rubs. ABDOMEN: minimally distended, nontender (however she did get sedation); no hepatosplenomegaly; bowel sounds are minimal EXTREMITIES: No clubbing, cyanosis, or edema. SKIN: Normal; no rash; no jaundice.. Available Data (labs, X- Rays, Procedures) : Lactic acid 9.1. WBC 18,000 ASSESSMENT/PLAN: 1. Diffuse abd pain-? gastroparesis ?low flow state. with rising lactic acid and WBC I worry about intestinal angina, sepsis etc. 2. Diarrhea-c. diff negative 3. Delayed gastric emptying 4. AVM-small bowel 5. elevated Alk po4 PLAN: 1. Cont BP support and antibiotics 2. D/W family the need for surgical eval and F/U ct scan 3. GGTP 4. no procedures planned It was a pleasure seeing Junie Fuentes. Thank you for this consult. Entered by: Edis Knox MD August 17, 2016 10:54
[2016-08-17] MEDS ORDERED: FLUCONAZOLE 200 MG PREMIX BAG 100 ML IV SCH (11:00)
--- NOTE | 2016-08-17 11:23 | HHI.CCPN ---
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 She presented to the ED with complaints of abdominal pain. The patient has an existing pacemaker, currently V paced, and was scheduled for she a pacemaker lead placement. Per report from her daughter, she was at home in the office doing peritoneal dialysis and had a syncopal episode. It was noted that her blood pressure was low and she was brought to the emergency. Imaging studies were obtained .Abdominal CT scan did not reveal source of infection, abdominal aortic aneurysm was ruled out. Critical care medicine was consulted for treatment and management. Upon entering the patient's room in CDU , the patient was noted to have a blood pressure 70/40, IV fluids were running wide open, the patient was cool clammy and diaphoretic. She was noted to be alert and oriented 3. The patient was transferred to ICU a central line was placed the patient was volume resuscitated and Levophed that was initiated to maintain a MAP greater than 65mmhg. Subjective: 08/17: Patient had respiratory compromise last night requiring emergent intubation. The patient lactate level continues to increase, patient's now on norepinephrine, vasopressor for hemodynamic stability. All cultures pending.Concern for bowel ischemia and general surgery was consulted. CT with oral contrast scheduled this a.m.. Objective Vital Signs Date Time Temp Pulse Resp B/P Pulse Ox O2 Delivery O2 Flow Rate FiO2 08/17/16 09:50 60 22 84/50 100 08/17/16 08:04 40 08/17/16 08:00 97.8 08/16/16 20:24 Nasal Cannula 2.00 Intake and Output 08/16/16 08/16/16 08/17/16 08:00 16:00 00:00 Intake Total 1000 ml 2084 ml Output Total 50 ml 250 ml Balance 950 ml 1834 ml Result Diagram: 08/17/16 0400 08/17/16 0400 Other Results Microbiology Date/Time Procedure Status Source Growth 08/16/16 12:35 Stool Occult Blood (SRINATH) - Final Complete Stool Stool HEMOCCULT NEGATIVE 08/16/16 16:50 Legionella Antigen - Final Complete Urine Random Urine PRESUMPTIVE NEGATIVE FOR LEGIONELLA P... Laboratory Tests Test 08/17/16 04:00 Blood Gas Puncture Site LT BRACHIAL Blood Gas Patient Temperature 98.6 Blood Gas HCO3 11 mmol/L (22-26) Blood Gas Base Excess -14.9 mmol/L (-2-2) Blood Gas Oxygen Saturation 97 % (90-100) Arterial Blood pH 7.24 (7.380-7.420) Arterial Blood Partial 27 mmHg (38-42) Pressure CO2 Arterial Blood Partial 398 mmHg Pressure O2 (61-120) Arterial Blood Oxygen Content 16.7 Vol % (12.0-20.0) Arterial Blood 0.9 % (0-4) Carboxyhemoglobin Arterial Blood Methemoglobin 1.3 % (0-2) Blood Gas Hemoglobin 11.4 G/DL (12.0-16.0) Oxygen Delivery Device VENTILATOR Blood Gas Ventilator Setting COMMENT Blood Gas Inspired Oxygen 100 % Imaging Last Impressions Chest X-Ray 08/16/16 0000 Signed Impressions: Service Date/Time: Tuesday, August 16, 2016 11:25 - CONCLUSION: Adequate placement of right jugular central line without pneumothorax. Vick Parks MD Abdomen Ultrasound 08/16/16 0000 Signed Impressions: Service Date/Time: Tuesday, August 16, 2016 10:00 - CONCLUSION: Hepatomegaly with diffuse parenchymal disease characteristic of steatosis. Free fluid in the abdomen from peritoneal dialysis. Status post cholecystectomy. No evidence of biliary obstructive disease. Bilateral renal cortical atrophy Bilateral renal cysts. Rodolfo Metzger MD Abdomen/Pelvis CT 08/15/16 [id number] Signed Impressions: Service Date/Time: Monday, August 15, 2016 23:26 - CONCLUSION: 1. No acute abnormality to explain the patient's pain. 2. Peritoneal dialysis catheter with small volume dialysate within the peritoneal cavity. Wellington Adorno Jr., MD Head CT 08/15/16 [id number] Signed Impressions: Service Date/Time: Monday, August 15, 2016 23:22 - CONCLUSION: 1. No acute intracranial abnormality. 2. Chronic small vessel ischemic change. Wellington Adorno Jr., MD Objective Remarks GENERAL: Critically ill obese female in severe distress with complaints of abdominal pain SKIN: Cool, clammy and diaphoretic. Multiple ecchymotic bruises on skin upper and lower extremities HEAD: Atraumatic. Normocephalic. EYES: Pupils equal and round. No scleral icterus. No injection or drainage. ENT: No nasal bleeding or discharge. Mucous membranes pink and moist. Airway patent. Nasal cannula 2 L/m NECK: Trachea midline. No JVD. CARDIOVASCULAR: Normal rate, 100% ventricular paced. RESPIRATORY: No accessory muscle use. Crackles noted in bases. Breath sounds equal bilaterally. GASTROINTESTINAL: Abdomen soft, protuberant non-tender, nondistended. No rebound tenderness No guarding. MUSCULOSKELETAL: Extremities without clubbing, cyanosis, or edema. No obvious deformities. NEUROLOGICAL: Awake and alert. RASS 0. No gross focal/sensory deficits. Follows commands in all 4 extremities. Urinary Catheter: Yes Vascular Central Line Catheter: Yes Date of Insertion: August 16, 2016 A/P Assessment and Plan ASSESSMENT Leukocytosis Hypotension Hypothermia Lactic acidosis Presumed septic shock Cardiogenic shock End-stage renal disease Arrhythmia Questionable GI bleed History of GI bleed/AVMs TAVR 04/2016 Pacemaker H/O Hypertension Abdominal pain Obesity Diarrhea Metabolic acidosis PLAN Neuro Neurochecks per ICU protocol Tylenol 650 mg every 6 hours when necessary for pain Temperature currently 95.4-apply air warming device TSH 2.44 cortisol 134 CV Obtain pacemaker interrogation Currently 100% ventricular paced Cardiology following-Dr. Prado Echo [id number] results Troponin 0.14-most likely secondary to end-stage renal disease, continue to monitor BNP 2752 CVP 13 Respiratory 08/17-intubated with 8.0 ETT Ventilator bundle Maintain head of bed greater than 30 Bronchodilators scheduled GI Gastroenterology [id number] recommendations 08/16 CT abdomen/pelvis-no aneurysm 08/16 US complete abdomen-fatty infiltration of the liver Maintain NPO status Obtain C. difficile PCR Obtain Hemoccult Zofran for nausea DVT prophylaxis Protonix 08/17 General surgery consulted - Dr. Moreira 08/17: Repeat CT abdomen with by mouth contrast Endocrine Glucose monitoring per ICU protocol SSI low-dose regimen Heme/ ID Vasopressors -Levophed, vasopressin Obtain serial H&H every 6 hours Lactate 3.0->9.0 Follow-up C. difficile PCR Follow-up Hemoccult F/U blood, urine, sputum and peritoneal fluid cultures Begin empiric antibiotics vancomycin ,cefepime (day 2), Diflucan(day 1) Continue to monitor WBC 14->18 today ID consulted Renal Kiran catheter Sodium bicarbonate infusion at 125 cc/hour Nephrology following-Dr. Barrios Peritoneal dialysis- to be initiated per Dr. Barrios Continue to monitor BMP-potassium level 4.1 DVT prophylaxis SCD's, no pharmacological prophylaxis at this time,R/O GI bleed GI prophylaxis Protonix Dispo: Discussed with daughter, Jairocammie, and Dr. Barrios at bedside. This patient remains critically ill with one or more organ systems which are or may become a threat to life. I have spent in excess of 55 minutes discontinuously in the care and management of this patient. This time is exclusive of procedures, and includes, but is not limited to, evaluation of the patient, review of the medical record, discussions with family, consultants, nursing staff, or respiratory therapy, and documentation in the medical record. Physician Stacey Cisneros MD August 17, 2016 11:23
[2016-08-17 12:20] LABS: INTERNATIONAL NORMALIZED RATIO 1.4 RATIO; PROTHROMBIN TIME - PATIENT 15.5 SEC (9.8-11.6)
[2016-08-17] MEDS ORDERED: PHENYLEPHRINE 40 MG/D5W 496 ML ADMIX IV SCH ×2 (13:30)
--- NOTE | 2016-08-17 13:56 | HHI.NPPN ---
Subjective History of Present Illness 86 year old with vague abdominal pain, ESRD on PD Additional Remarks Admitted with sepsis, lost bp on 3 vasopressors now has a A line full code Objective Data Data 08/16/16 08/17/16 19:00 07:00 Intake Total 1000 ml 2475 ml Output Total 50 ml 350 ml Balance 950 ml 2125 ml Intake Oral 0 ml 200 ml IV Total 1000 ml 2275 ml Output Urine Total 50 ml 350 ml # Bowel Movements 3 Vital Signs Date Time Temp Pulse Resp B/P Pulse Ox O2 Delivery O2 Flow Rate FiO2 08/17/16 12:15 63 22 88/50 100 08/17/16 12:00 40 08/17/16 12:00 99.4 63 22 86/50 100 08/17/16 11:45 63 22 84/53 100 08/17/16 11:30 62 22 82/52 100 08/17/16 11:15 63 22 81/51 100 08/17/16 11:00 62 22 83/50 99 08/17/16 10:45 60 23 84/54 88 08/17/16 10:30 60 22 82/50 100 08/17/16 10:15 59 22 87/55 100 08/17/16 10:00 60 22 85/51 100 08/17/16 09:50 60 22 84/50 100 08/17/16 09:45 60 23 100 08/17/16 09:40 60 23 86/52 100 08/17/16 09:30 60 23 88/56 100 08/17/16 09:20 60 24 83/51 100 08/17/16 09:15 60 25 99 08/17/16 09:11 60 24 91/54 100 08/17/16 09:00 60 24 90/54 100 08/17/16 08:50 60 23 87/54 100 08/17/16 08:45 60 23 100 08/17/16 08:40 61 23 83/53 100 08/17/16 08:34 63 23 77/44 100 08/17/16 08:32 61 22 74/42 100 08/17/16 08:31 61 22 79/51 100 08/17/16 08:30 60 23 100 08/17/16 08:20 60 22 104/56 99 08/17/16 08:15 60 22 99 08/17/16 08:10 60 22 106/56 100 08/17/16 08:04 100 40 08/17/16 08:00 97.8 60 22 105/55 100 08/17/16 08:00 40 08/17/16 06:00 60 22 105/51 100 08/17/16 06:00 60 08/17/16 05:43 100 50 08/17/16 05:20 60 22 113/56 100 08/17/16 05:05 61 22 108/58 100 08/17/16 05:00 60 08/17/16 04:50 60 22 102/52 100 08/17/16 04:40 60 22 97/55 100 08/17/16 04:30 60 22 89/52 100 08/17/16 04:20 60 22 87/51 100 08/17/16 04:17 60 22 83/51 100 08/17/16 04:12 60 22 84/47 100 08/17/16 04:10 60 22 84/45 100 08/17/16 04:01 97.2 60 22 84/49 100 08/17/16 04:00 100 08/17/16 04:00 61 08/17/16 03:00 60 22 89/57 100 08/17/16 03:00 66 08/17/16 02:40 62 22 83/51 100 08/17/16 02:30 63 22 87/54 100 08/17/16 02:20 63 22 84/52 100 08/17/16 02:10 63 22 85/51 100 08/17/16 02:03 62 22 94/50 100 08/17/16 02:00 66 08/17/16 02:00 60 22 100 08/17/16 01:21 60 22 98/48 100 08/17/16 01:18 60 22 97/48 100 08/17/16 01:15 60 22 96/49 100 08/17/16 01:12 60 22 92/46 100 08/17/16 01:09 60 22 91/45 100 08/17/16 01:06 60 22 99/52 100 08/17/16 01:03 60 22 92/52 100 08/17/16 01:00 66 08/17/16 01:00 60 22 91/52 100 08/17/16 00:57 60 22 91/51 100 08/17/16 00:55 94 100 08/17/16 00:54 60 22 91/49 100 08/17/16 00:51 60 22 93/48 99 08/17/16 00:48 60 22 94/48 08/17/16 00:46 60 22 89/50 94 08/17/16 00:43 61 22 91/44 92 08/17/16 00:40 60 22 119/53 96 08/17/16 00:36 60 19 140/63 100 08/17/16 00:34 100 08/17/16 00:33 60 40 130/63 91 08/17/16 00:30 60 39 125/58 90 08/17/16 00:27 60 39 120/56 93 08/17/16 00:26 97.6 60 37 116/56 95 08/17/16 00:00 66 08/16/16 23:00 66 08/16/16 22:00 66 08/16/16 21:00 66 08/16/16 20:24 99 Nasal Cannula 2.00 08/16/16 20:19 66 19 124/60 100 08/16/16 20:18 66 20 122/89 99 08/16/16 20:16 66 17 110/59 98 08/16/16 20:15 67 17 101/54 100 08/16/16 20:00 66 08/16/16 20:00 96.7 66 30 123/64 98 08/16/16 19:45 67 30 123/56 99 08/16/16 19:30 67 32 86/50 98 08/16/16 19:15 65 32 88/55 99 08/16/16 19:00 66 08/16/16 19:00 65 30 99/50 99 08/16/16 18:57 65 08/16/16 18:45 95.3 62 28 91/55 100 08/16/16 18:30 62 29 97/54 100 08/16/16 18:15 62 30 103/56 100 08/16/16 18:00 63 26 101/51 100 08/16/16 17:45 64 44 94/48 100 08/16/16 17:31 80 31 88/53 99 08/16/16 17:30 80 33 99 08/16/16 17:15 80 33 90/52 100 08/16/16 17:00 80 30 104/55 100 08/16/16 17:00 80 08/16/16 16:45 80 27 99/50 100 08/16/16 16:30 80 22 95/49 99 08/16/16 16:15 80 27 104/51 100 08/16/16 16:09 80 08/16/16 16:05 98.0 79 29 148/87 100 08/16/16 16:00 95.0 08/16/16 16:00 80 24 101/52 100 08/16/16 14:33 87 -: 08/17/16 0400 08/17/16 0400 Microbiology 08/16/16 Gram Stain - Final, Resulted 08/16/16 Body Fluid Culture - Preliminary, Resulted NO GROWTH IN 24 HOURS. 08/16/16 Fungal Smear - Final, Resulted NO FUNGAL ELEMENTS SEEN. 08/16/16 Fungal Culture, Resulted Pending 08/16/16 Legionella Antigen - Final, Complete PRESUMPTIVE NEGATIVE FOR LEGIONELLA P... 08/16/16 Urine Culture, Received Pending 08/17/16 Gram Stain, Received Pending 08/17/16 Body Fluid Culture, Received Pending Physical Exam General Appearance: Pale Appearance Remarks intubated Neck Neck Exam: Neck Supple Pulmonary Resp Exam: Clear Bilaterally, Breath Sounds Equal Cardiology CV Exam: Arrhythmia Gastrointestinal/Abdomen GI Exam: Soft, Distended, Bowel Sounds Absent Extremeties Extremities Exam: Trace Edema Assessment/Plan Problem List: (1) ESRD on peritoneal dialysis Plan: Patient is crtically ill PD fluid RBC high likely ischemic bowels agree do a CT scan Lactic acid high hold PD patient prognosis poor family wishes aggressive care d/w Dr. Nesbitt (2) Syncope and collapse Plan: Likely underlying sepsis versus cardiogenic shock (3) Sepsis Plan: Patient is placed on cefepime and blood cultures 1 bottle staph coag neg (4) Paroxysmal a-fib (5) DM (diabetes mellitus) Plan: Continue to monitor (6) Abdominal pain Plan: C. difficile negative Ischemic bowels suspected Marian Barrios MD August 17, 2016 13:56
--- NOTE | 2016-08-17 13:59 | PD.PROCEDR ---
Procedure Note Procedure Procedure: Arterial Line Placement Right femoral artery Diagnosis: Septic shock, cardiogenic shock Indications: Hypotension Consent: Emergent Description of the Procedure: The right groin was prepped and draped sterilely. 1% lidocaine was used for local anesthesia. Under ultrasound guidance the right femoral pulse was located and a needle was advanced into the artery. A 20 gauge, 12 cm catheter was advanced into the artery using a modified Seldinger technique. The catheter was sutured to the skin and a sterile dressing was applied. The catheter was connected to a pressure transducer and an arterial waveform was noted. There were no immediate complications noted. There was minimal EBL. I personally performed the procedure. Stacey Nesbitt MD August 17, 2016 13:59
[2016-08-17 14:35] LABS: BLOOD GAS BASE EXCESS -21.6 mmol/L (-2-2); BLOOD GAS CARBOXYHEMOGLOBIN 0.7 % (0-4); BLOOD GAS HCO3 7 mmol/L (22-26); BLOOD GAS METHEMOGLOBIN 1.5 % (0-2); BLOOD GAS O2 HGB SATURATION 95 % (90-100); BLOOD GAS OXYGEN CONTENT 12.7 Vol % (12.0-20.0); BLOOD GAS PCO2 24 mmHg (38-42); BLOOD GAS PO2 158 mmHg (61-120); BLOOD GAS TOTAL HGB 9.2 G/DL (12.0-16.0); CRITICAL VALUE YES; OXYGEN DEVICE VENT; TEMP CORR TO 98.6; VENT SETTINGS PRVC/22/450/8PEEP/1I
[2016-08-17 14:36] LABS: DRAW SITE ALINE; FIO2 40 %; STAT YES
--- NOTE | 2016-08-17 14:43 | RADRPT ---
EXAM DATE/TIME: 08/17/2016 14:07 [facility] COMPARISON: CT ABDOMEN & PELVIS W/O CONTRAST, August 15, 2016, 23:26. INDICATIONS : Constipation, shock ORAL CONTRAST: Prescribed oral contrast ingested. RADIATION DOSE: 21.67 CTDIvol (mGy) MEDICAL HISTORY : Hypertension. Diabetes mellitus type 2. Renal failure, chronic. SURGICAL HISTORY : Pacemaker. Cholecystectomy.Hysterectomy. ENCOUNTER: Initial ACUITY: 1 day PAIN SCALE: Non-responsive LOCATION: abdomen TECHNIQUE: Volumetric scanning of the abdomen and pelvis was performed. Using automated exposure control and ad justment of the mA and/or kV according to patient size, radiation dose was kept as low as reasonably achievable to obtain optimal diagnostic quality images. FINDINGS: LOWER LUNGS: Left basilar infiltrate. LIVER: Homogeneous density without lesion. There is no dilation of the biliary tree. Small amount of abdom inal ascites. Cholecystectomy. Subcentimeter low densities. SPLEEN: Normal size without lesion. PANCREAS: Within normal limits. KIDNEYS: Atrophic kidneys. There is no mass, stone, or hydronephrosis. Peritoneal dialysis catheter with tip in the lower abdomen at the midline. ADRENAL GLANDS: Within normal limits. VASCULAR: There is no aortic aneurysm. BOWEL/MESENTERY: There is pneumoperitoneum anteriorly. Copious amount of stool throughout the large bowel. Possible wa ll thickening of the transverse colon. Nasogastric tube with tip in stomach. Rectal tube. ABDOMINAL WALL: Small right-sided ventral wall hernia containing loops of small bowel. There is also bulging of the r ight anterior abdominal wall. RETROPERITONEUM: There is no lymphadenopathy. BLADDER: No wall thickening or mass. REPRODUCTIVE: Within normal limits. INGUINAL: There is no lymphadenopathy or hernia. MUSCULOSKELETAL: Within normal limits for patient age. CONCLUSION: 1. There is pneumoperitoneum anteriorly. 2. There is some possible wall thickening involving the distal transverse colon may be from colitis. 3. Constipation. 4. Minimal ascites. 5. Left basilar infiltrate. 6. Subcentimeter hepatic low densities. 7. Ventral wall hernia containing loops of small bowel. No signs of attenuation or obstruction. Vick Parks MD on August 17, 2016 at 14:31 Board Certified Radiologist. This report was verified electronically.
[2016-08-17] MEDS ORDERED: EPINEPHrine 2 MG/D5W 250 ML IV SCH ×2 (14:45)
[2016-08-17 15:26] LABS: INTERNATIONAL NORMALIZED RATIO 1.6 RATIO; PROTHROMBIN TIME - PATIENT 17.7 SEC (9.8-11.6)
[2016-08-17 15:27] LABS: AUTOMATED NEUTROPHIL # 14.6 TH/MM3 (1.8-7.7); BASOPHIL % 0.2 % (0.0-2.0); EOSINOPHIL % 0.1 % (0.0-4.0); LYMPH % 14.6 % (9.0-44.0); LYMPHOCYTE # 2.5 TH/MM3 (1.0-4.8); MEAN CELL VOLUME 105.7 FL (80.0-100.0); MEAN CORPUSCULAR HEMOGLOBIN 30.5 PG (27.0-34.0); MONO % 1.6 % (0.0-8.0); NEUT % 83.5 % (16.0-70.0); PLATELET COUNT 190 TH/MM3 (150-450); RED BLOOD COUNT 2.97 MIL/MM3 (4.00-5.30); RED CELL DISTRIBUTION WIDTH 19.4 % (11.6-17.2); WHITE BLOOD COUNT 17.4 TH/MM3 (4.0-11.0)
[2016-08-17 15:28] LABS: HEMATOCRIT 31.9 % (35.0-46.0); HEMO FLAGS AUTO DIFF
[2016-08-17 16:21] LABS: BANDS 34 % (0-6); CORRECTED NUCLEATED RBC 5 /100 WBC (0-0); EOSINOPHILS 1 % (0-4); METAMYELOCYTES 6 % (0-1); MYELOCYTES 5 % (0-0); NEUTROPHIL # MANUAL DIFF 13.2 TH/MM3 (1.8-7.7); POLYS (SEG NEUTROPHILS) 31 % (16-70); WBC DIFF SAMPLE 100
[2016-08-17 16:27] LABS: PLATELET ESTIMATE SMEAR NORMAL (NORMAL); PLATELET MORPHOLOGY ENLARGED (NORMAL); SCAN/DIFF FINAL DIFF MANUAL
--- NOTE | 2016-08-17 16:53 | PD.CONS ---
Consult Service Palliative Care Consult Requested By Dr. Laz MD Primary Care Physician Avelina Arauz Reason for Consultation a. To assist with evaluation and management of symptoms including: Shortness of breath, debility. b. To assist medical decision maker(s) with: better understanding of current medical conditions; weighing benefits/burdens of medical treatment options; making medical treatment decisions. . (Landy Pittman) HPI History of Present Illness Mrs. Fuentes is an 86-year-old female with a past medical history of end-stage renal disease on peritoneal dialysis, A. fib, diabetes, TA, hypertension who presented to the emergency room on 08/15/16 secondary to syncopal episode. As per patient's daughter Rochelle, patient has been having health issues for many years. Recently admission to [facility] secondary to abdominal pain. Patient on peritoneal dialysis x 7 per week for the past 3 years. Patient arrived to the ED on that and oriented, endorsing abdominal pain. ED workup as follow: * WBC 14.3, Hgb 10.3, platelet count 393. Sodium 137, potassium 3.7, BUN/ creatinine 33/3.73. Albumin 2.5. * Head CT negative for acute process. Chronic small vessel ischemic changes. * Abdominal/pelvis CT negative for acute process. Peritoneal dialysis catheter within the peritoneal cavity. * Chest x-ray showing left base parenchymal process. No acute findings. * EKG showing ventricular paced rhythm. Cardiology, Dr. Johan jones consulted on 08/16/16 secondary to slightly elevated troponin. Nephrology -Dr. Barrios consulted on 08/16/16 secondary to ESRD on peritoneal dialysis. On 08/16/16, patient was noted to be hypotensive with blood pressure 70/40, and she received IV fluids, was subsequently transferred to medical ICU and placed on vasopressors. GI Dr. Mcnamara consulted on secondary to diffuse abdominal pain. Clinical course further complicated on 08/17/16 secondary to respiratory distress requiring emergent intubation and mechanical ventilation. Patient was placed on norepinephrine and vasodepressor for septic shock/heterogenic shock. Abdomen/pelvis CT on 08/17/16 showing pneumoperitoneum anteriorly. Concerns of bowel ischemia. Patient's condition continued to deteriorate requiring 3 pressors to include Erasto-Synephrine, vasopressin and Levophed. Patient was placed on bicarbonate drip secondary to increased lactic acid from 4.2 yesterday, 9.1 this morning to 18.5 this afternoon. Palliative care was consulted to assist with healthcare decision-making, clarifications of goals of care and emotional support. Patient seen in ICU, she is intubated on mechanical ventilation. Unresponsive to verbal or tactile stimuli, not sedated. Currently on it 100% FiO2/8 of PEEP. On 3 pressors and bicarbonate drip. Dr. Nesbitt had a long conversation with patient's family to include daughter Christel, daughter Denice and son Pedrito. Family electing comfort-directed care/withdrawal life support given patient's worsening clinical condition with very poor prognosis for survival. Palliative care met with patient's family at bedside who confirmed comfort directed goals. Anticipatory guidance provided regarding withdrawal process to include medications for comfort. Spiritual services offered and accepted by family. Contacted copper plate lithographer Timo for follow-up. Palliative care provided family with contact information for additional questions. . Function/Cognitive Trajectory Patient with decline in health for the past 3 years secondary to ESRD on peritoneal dialysis. Has been residing with daughter Rochelle for the past 6 months. Requiring assistance with ADLs such as bathing and dressing. Ambulating with difficulty. . (Landy Pittman) Review of Systems ROS Limitations: Clinical Condition, Intubated, Unresponsive Constitutional: COMPLAINS OF: Fatigue, Generalized weakness, DENIES: Change in appetite Endocrine: DENIES: Heat/cold intolerance Ears, nose, mouth, throat: DENIES: Running Nose Respiratory: DENIES: Apneas, Shortness of breath Cardiovascular: COMPLAINS OF: Syncope, DENIES: Lower Extremity Edema Gastrointestinal: COMPLAINS OF: Abdominal pain, Diarrhea, Nausea Integumentary: DENIES: Abnormal pigmentation Hematologic/Lymphatics: COMPLAINS OF: Bruising Immunologic/Allergic: DENIES: Eczema Neurologic: COMPLAINS OF: Abnormal gait Psychiatric: DENIES: Anxiety Other ROS: Limited ROS secondary to clinical condition. ROS obtained from patient's family , medical records and clinical observation. (Landy Pittman) Past Family Social History Coded Allergies: Adhesives (Verified Allergy, Severe, BLISTERS, 08/15/16) ALL ADHESIVES (EVEN NON ALLERGENIC) Past Medical History End-stage renal disease on peritoneal dialysis for the past 3 years After fibrillation Diabetes mellitus type 2 CAD TIA Hypertension GI bleed Anemia Aortic stenosis status post TAVR Hypothyroidism Gastroparesis . Past Surgical History TAVR Pacemaker placement Hernia repair Hysterectomy Cholecystectomy Placement of peritoneal dialysis catheter . Reported Medications Preservision Areds 2 (Multiple Vitamins W/ Minerals) 1 Cap 1 Cap PO BID Aspirin 81 Mg Chew 81 Mg CHEW DAILY Plavix (Clopidogrel Bisulfate) 75 Mg Tab 75 Mg PO DAILY Cranberry Plus Vitamin C (Cranberry-Vitamin C-Vitamin E) 4,200-20-3 Mg-Mg-Unit Cap 1 Cap PO HS Systane Nighttime Opth Oint (White Petrolatum-Mineral Oil Opth Oint) 1 Application Oint 1 Applic EACH EYE HS Bethanechol 25 Mg Tab 25 Mg PO ACHS Pantoprazole (Pantoprazole Sodium) 40 Mg Tab 40 Mg PO DAILY Pepcid (Famotidine) 20 Mg Tab 20 Mg PO BID Zofran Odt (Ondansetron Odt) 4 Mg Tab 4 Mg SL Q4HR PRN Ranexa ER 12 HR (Ranolazine) 500 Mg Tab 500 Mg PO DAILY Amiodarone (Amiodarone HCl) 200 Mg Tab 200 Mg PO DAILY Systane Ultra Opth (Polyethylene Glycol-Propylene Opth) 0.4-0.3% Soln 1 Drop EACH EYE BID Dulcolax Stool Softener (Docusate Sodium) 100 Mg Cap 100 Mg PO HS D3 (Cholecalciferol) 2,000 Unit Tab 2,000 Units PO DAILY Nephro-Clara (B-Complex W/ C & Folic Acid) 1 Tab 1 Tab PO DAILY Levothyroxine (Levothyroxine Sodium) 50 Mcg Tab 50 Mcg PO DAILY Lasix (Furosemide) 40 Mg Tab 40 Mg PO DAILY Folate (Folic Acid) 1 Mg Tab 1 Mg PO DAILY Mapap Arthritis Pain ER 8 HR (Acetaminophen) 650 Mg Tab 650 Mg PO Q4HR PRN Humalog Mix 75-25 Inj (Insulin Lispro Protam/Lispro Human) 1,000 Unit/10 Ml Susp 6 Units SQ AC DINNER Humalog Mix 75-25 Inj (Insulin Lispro Protam/Lispro Human) 1,000 Unit/10 Ml Susp 26 Units SQ AC BREAKFAST . Current Medications Medications (Trade) Dose Ordered Sig/Laura Route Start Time Stop Time Status Last Admin (Dulcolax Supp) 10 mg DAILY PRN RECTAL 08/15/16 23:30 (Senokot) 17.2 mg Q12H PRN PO 08/15/16 23:30 08/16/16 06:30 (Heparin Inj) 5,000 units Q12H SQ 08/16/16 06:00 08/17/16 05:34 (Narcan Inj) 0.4 mg UNSCH PRN IV 08/15/16 23:30 (Ranexa) 500 mg Q12HR PO 08/16/16 09:00 (Pepcid) 10 mg BID PO 08/16/16 09:00 08/17/16 10:09 (Urecholine) 25 mg Q6HR PO 08/16/16 06:00 08/17/16 05:34 (Nitroglycerin 2% Oint) 1 inch Q6HR TOPICAL 08/16/16 06:00 08/16/16 18:00 (Catapres) 0.1 mg Q6H PRN PO 08/16/16 06:15 (NS Flush) 2 ml UNSCH PRN IV FLUSH 08/16/16 11:00 (NS Flush) 2 ml BID IV FLUSH 08/16/16 21:00 08/17/16 09:00 (Tylenol) 650 mg Q6H PRN PO 08/16/16 11:00 (Protonix Inj) 40 mg DAILY IV 08/16/16 11:00 08/17/16 10:10 (Zofran Inj) 4 mg Q6H PRN IV 08/16/16 11:00 08/16/16 23:38 (Bettye-Colace) 2 tab BID PO 08/16/16 21:00 08/17/16 10:09 Magnesium Hydroxide 30 ml 30 ml Q12H PRN PO 08/16/16 11:00 (Levophed-Dextrose Drip) 250 ml @ 0 mls/hr TITRATE IV 08/16/16 12:00 08/17/16 11:11 Terbutaline Sulfate 1 mg 1 mg UNSCH PRN SQ 08/16/16 12:00 (Vancomycin Consult Pharmacy) 0 ml @ 0 mls/hr UNSCH OTHER 08/16/16 13:00 Miscellaneous Information 1 Q361D XX 08/16/16 13:00 (Chlorhexidine 2% Cloth) 3 pack Taper DAILY@04 TOP 08/17/16 04:00 08/13/17 03:59 08/16/16 21:43 (Chlorhexidine 2% Cloth) 3 pack UNSCH PRN TOP 08/16/16 13:00 Sodium Chloride 10 ml 10 ml UNSCH PRN IV FLUSH 08/16/16 13:30 (Maxipime Inj/NS Inj) 100 ml @ 200 mls/hr Q24H IV 08/16/16 14:00 08/16/16 14:00 (D50w (Vial) Inj) 25 ml UNSCH PRN IV PUSH 08/16/16 14:30 (Glucagon Inj) 1 mg UNSCH PRN OTHER 08/16/16 14:30 Chlorhexidine Gluconate 15 ml 15 ml BID@08,20 MT 08/17/16 08:00 08/17/16 01:08 Fentanyl Citrate 250 ml @ 0 mls/hr TITRATE IV 08/17/16 00:30 08/17/16 01:08 (Pitressin Inj/ D5W 100 ml Inj) 100 ml @ 4.5 mls/hr [id number] IV 08/17/16 00:26 08/17/16 02:07 Hydrocortisone Sodium Succinate 100 mg 100 mg Q8HR IV PUSH 08/17/16 00:30 08/17/16 05:34 Sodium Bicarbonate 150 meq/Sterile Water 1,000 ml @ 125 mls/hr Q8H IV 08/17/16 05:30 Fluconazole/ Sodium Chloride 100 ml @ 100 mls/hr Q24H IV 08/17/16 11:00 08/17/16 10:58 Phenylephrine HCl 40 mg/Dextrose 500 ml @ 0 mls/hr TITRATE IV 08/17/16 13:30 (Adrenalin (1:1000) Inj/D5W Inj) 252 ml @ 0 mls/hr TITRATE IV 08/17/16 14:45 Family History Patient has 3 children who are alive and well. . Substance Use Tobacco: None reported Alcohol: None reported Prescription med abuse: none reported Illicits: None reported . Psychosocial History Patient is a . She has 3 children, 2 daughters Rochelle and Denice 1 son Pedrito. Patient residing with daughter Christel for the past 6 months. . Spiritual/Cultural Factors And no spiritism affiliation. Although, family reports being spiritual. Requesting copper plate lithographer. . (Landy Pittman) Living Will: Never completed Health Care Surrogate: Never completed Durable Power of Barrel Lathe Operator Inside: Never completed Health Care Surrogate(s): No designation of healthcare surrogate. As per [place] statute, patient's 3 children will be healthcare proxy. . Documented care wishes: No living will completed. . Family/friends goals: No code. DNR/DNI. Position patient to comfort-directed care/withdrawal life support, allow natural . . (Landy Pittman) Physical Exam Vital Signs Date Time Temp Pulse Resp B/P Pulse Ox O2 Delivery O2 Flow Rate FiO2 08/17/16 14:00 99 100 08/17/16 12:15 63 22 88/50 100 08/17/16 12:00 40 08/17/16 12:00 99.4 63 22 86/50 100 08/17/16 11:45 63 22 84/53 100 08/17/16 11:30 62 22 82/52 100 08/17/16 11:15 63 22 81/51 100 08/17/16 11:00 62 22 83/50 99 08/17/16 10:45 60 23 84/54 88 08/17/16 10:30 60 22 82/50 100 08/17/16 10:15 59 22 87/55 100 08/17/16 10:00 60 22 85/51 100 08/17/16 09:50 60 22 84/50 100 08/17/16 09:45 60 23 100 08/17/16 09:40 60 23 86/52 100 08/17/16 09:30 60 23 88/56 100 08/17/16 09:20 60 24 83/51 100 08/17/16 09:15 60 25 99 08/17/16 09:11 60 24 91/54 100 08/17/16 09:00 60 24 90/54 100 08/17/16 08:50 60 23 87/54 100 08/17/16 08:45 60 23 100 08/17/16 08:40 61 23 83/53 100 08/17/16 08:34 63 23 77/44 100 08/17/16 08:32 61 22 74/42 100 08/17/16 08:31 61 22 79/51 100 08/17/16 08:30 60 23 100 08/17/16 08:20 60 22 104/56 99 08/17/16 08:15 60 22 99 08/17/16 08:10 60 22 106/56 100 08/17/16 08:04 100 40 08/17/16 08:00 97.8 60 22 105/55 100 08/17/16 08:00 60 08/17/16 08:00 40 08/17/16 06:00 60 22 105/51 100 08/17/16 06:00 60 08/17/16 05:43 100 50 08/17/16 05:20 60 22 113/56 100 08/17/16 05:05 61 22 108/58 100 08/17/16 05:00 60 08/17/16 04:50 60 22 102/52 100 08/17/16 04:40 60 22 97/55 100 08/17/16 04:30 60 22 89/52 100 08/17/16 04:20 60 22 87/51 100 08/17/16 04:17 60 22 83/51 100 08/17/16 04:12 60 22 84/47 100 08/17/16 04:10 60 22 84/45 100 08/17/16 04:01 97.2 60 22 84/49 100 08/17/16 04:00 100 08/17/16 04:00 61 08/17/16 03:00 60 22 89/57 100 08/17/16 03:00 66 08/17/16 02:40 62 22 83/51 100 08/17/16 02:30 63 22 87/54 100 08/17/16 02:20 63 22 84/52 100 08/17/16 02:10 63 22 85/51 100 08/17/16 02:03 62 22 94/50 100 08/17/16 02:00 66 08/17/16 02:00 60 22 100 08/17/16 01:21 60 22 98/48 100 08/17/16 01:18 60 22 97/48 100 08/17/16 01:15 60 22 96/49 100 08/17/16 01:12 60 22 92/46 100 08/17/16 01:09 60 22 91/45 100 08/17/16 01:06 60 22 99/52 100 08/17/16 01:03 60 22 92/52 100 08/17/16 01:00 66 08/17/16 01:00 60 22 91/52 100 08/17/16 00:57 60 22 91/51 100 08/17/16 00:55 94 100 08/17/16 00:54 60 22 91/49 100 08/17/16 00:51 60 22 93/48 99 08/17/16 00:48 60 22 94/48 08/17/16 00:46 60 22 89/50 94 08/17/16 00:43 61 22 91/44 92 08/17/16 00:40 60 22 119/53 96 08/17/16 00:36 60 19 140/63 100 08/17/16 00:34 100 08/17/16 00:33 60 40 130/63 91 08/17/16 00:30 60 39 125/58 90 08/17/16 00:27 60 39 120/56 93 08/17/16 00:26 97.6 60 37 116/56 95 08/17/16 00:00 66 08/16/16 23:00 66 08/16/16 22:00 66 08/16/16 21:00 66 08/16/16 20:24 99 Nasal Cannula 2.00 08/16/16 20:19 66 19 124/60 100 08/16/16 20:18 66 20 122/89 99 08/16/16 20:16 66 17 110/59 98 08/16/16 20:15 67 17 101/54 100 08/16/16 20:00 66 08/16/16 20:00 96.7 66 30 123/64 98 08/16/16 19:45 67 30 123/56 99 08/16/16 19:30 67 32 86/50 98 08/16/16 19:15 65 32 88/55 99 08/16/16 19:00 66 08/16/16 19:00 65 30 99/50 99 08/16/16 18:57 65 08/16/16 18:45 95.3 62 28 91/55 100 08/16/16 18:30 62 29 97/54 100 08/16/16 18:15 62 30 103/56 100 08/16/16 18:00 63 26 101/51 100 08/16/16 17:45 64 44 94/48 100 08/16/16 17:31 80 31 88/53 99 08/16/16 17:30 80 33 99 08/16/16 17:15 80 33 90/52 100 08/16/16 17:00 80 30 104/55 100 08/16/16 17:00 80 08/16/16 16:45 80 27 99/50 100 08/16/16 16:30 80 22 95/49 99 08/16/16 16:15 80 27 104/51 100 08/16/16 16:09 80 08/16/16 16:05 98.0 79 29 148/87 100 08/16/16 08/17/16 19:00 07:00 Intake Total 1000 ml 2475 ml Output Total 50 ml 350 ml Balance 950 ml 2125 ml Intake Oral 0 ml 200 ml IV Total 1000 ml 2275 ml Output Urine Total 50 ml 350 ml # Bowel Movements 3 Exam CONSTITUTIONAL/GENERAL: This is an elderly obese female in no acute distress. She is intubated on mechanical ventilation. TUBES/LINES/DRAINS: ETT, OG, right triple-lumen IJ, PIV's. SKIN: No jaundice, rashes, or lesions. Severe ecchymoses on upper extremities. No wounds seen anteriorly. Skin temperature appropriate. HEAD: Atraumatic. Normocephalic. EYES: Pupils sluggish. No scleral icterus. No injection or drainage. Fundi not examined. ENT: Unable to assess hearing secondary to clinical condition. Nose without bleeding or purulent drainage. Mouth close. NECK: Trachea midline. Supple. CARDIOVASCULAR: Regular rate and rhythm. Paced at 60 bpm. Severe mottling of bilateral lower extremities to include toes, feet. Mottling of right breast. RESPIRATORY/CHEST: Symmetric, unlabored respirations. Intubated on mechanical ventilation. GASTROINTESTINAL: Abdomen large, round, distended. Hypoactive bowel sounds. GENITOURINARY: Without palpable bladder distension. Kiran catheter in place. MUSCULOSKELETAL: Mottling of lower extremities. NEUROLOGICAL: Comatose. Unresponsive to verbal or tactile stimuli. Not sedated. PSYCHIATRIC: Unable to assess secondary to clinical condition. . (Landy Pittman) Diagnostic Tests Laboratory Laboratory Tests Test 08/15/16 08/15/16 08/16/16 08/16/16 22:05 22:10 00:10 00:50 Prothrombin Time 11.3 SEC (9.8-11.6) Prothromb Time International 1.0 RATIO Ratio Activated Partial 27.5 SEC Thromboplast Time (24.3-30.1) Sodium Level 137 MEQ/L (136-145) Potassium Level 3.7 MEQ/L (3.5-5.1) Chloride Level 100 MEQ/L (98-107) Carbon Dioxide Level 26.0 MEQ/L (21.0-32.0) Anion Gap 11 MEQ/L (5-15) Blood Urea Nitrogen 33 MG/DL (7-18) Creatinine 3.73 MG/DL (0.50-1.00) Estimat Glomerular Filtration 12 ML/MIN (>89) Rate Random Glucose 149 MG/DL (74-106) Calcium Level 9.2 MG/DL (8.5-10.1) Magnesium Level 2.3 MG/DL (1.5-2.5) Total Bilirubin 0.4 MG/DL (0.2-1.0) Aspartate Amino Transf 31 U/L (15-37) (AST/SGOT) Alanine Aminotransferase 28 U/L (10-53) (ALT/SGPT) Alkaline Phosphatase 138 U/L (45-117) Total Creatine Kinase 31 U/L (26-192) Troponin I 0.16 NG/ML 0.13 NG/ML (0.02-0.05) (0.02-0.05) B-Type Natriuretic Peptide 3072 PG/ML (0-100) Total Protein 7.4 GM/DL (6.4-8.2) Albumin 2.5 GM/DL (3.4-5.0) Lipase 412 U/L (73-393) White Blood Count 12.5 TH/MM3 (4.0-11.0) Red Blood Count 3.13 MIL/MM3 (4.00-5.30) Hemoglobin 10.0 GM/DL (11.6-15.3) Hematocrit 29.8 % (35.0-46.0) Mean Corpuscular Volume 95.0 FL (80.0-100.0) Mean Corpuscular Hemoglobin 31.9 PG (27.0-34.0) Mean Corpuscular Hemoglobin 33.6 % Concent (32.0-36.0) Red Cell Distribution Width 18.1 % (11.6-17.2) Platelet Count 295 TH/MM3 (150-450) Mean Platelet Volume 8.5 FL (7.0-11.0) Neutrophils (%) (Auto) 69.2 % (16.0-70.0) Lymphocytes (%) (Auto) 22.4 % (9.0-44.0) Monocytes (%) (Auto) 6.0 % (0.0-8.0) Eosinophils (%) (Auto) 1.4 % (0.0-4.0) Basophils (%) (Auto) 1.0 % (0.0-2.0) Neutrophils # (Auto) 8.6 TH/MM3 (1.8-7.7) Lymphocytes # (Auto) 2.8 TH/MM3 (1.0-4.8) Monocytes # (Auto) 0.8 TH/MM3 (0-0.9) Eosinophils # (Auto) 0.2 TH/MM3 (0-0.4) Basophils # (Auto) 0.1 TH/MM3 (0-0.2) CBC Comment DIFF FINAL Differential Comment Lactic Acid Level 2.9 mmol/L 3.6 mmol/L 3.3 mmol/L (0.4-2.0) (0.4-2.0) (0.4-2.0) Blood Gas Puncture Site LT RADIAL Blood Gas Patient Temperature 98.6 Blood Gas HCO3 23 mmol/L (22-26) Blood Gas Base Excess -0.8 mmol/L (-2-2) Blood Gas Oxygen Saturation 97 % (90-100) Arterial Blood pH 7.43 (7.380-7.420) Arterial Blood Partial 35 mmHg (38-42) Pressure CO2 Arterial Blood Partial 109 mmHG Pressure O2 (61-120) Arterial Blood Oxygen Content 15.0 Vol % (12.0-20.0) Arterial Blood 1.3 % (0-4) Carboxyhemoglobin Arterial Blood Methemoglobin 0.4 % (0-2) Blood Gas Hemoglobin 10.9 G/DL (12.0-16.0) Oxygen Delivery Device ROOM AIR Blood Gas Inspired Oxygen 21 % Procalcitonin 0.26 ng/mL (0.00-0.50) Test 08/16/16 08/16/16 08/16/16 08/16/16 04:15 10:00 12:35 12:42 Sodium Level 138 MEQ/L 137 MEQ/L (136-145) (136-145) Potassium Level 3.5 MEQ/L 3.7 MEQ/L (3.5-5.1) (3.5-5.1) Chloride Level 99 MEQ/L 101 MEQ/L (98-107) (98-107) Carbon Dioxide Level 25.4 MEQ/L 23.2 MEQ/L (21.0-32.0) (21.0-32.0) Anion Gap 14 MEQ/L (5-15) 13 MEQ/L (5-15) Blood Urea Nitrogen 36 MG/DL (7-18) 40 MG/DL (7-18) Creatinine 4.09 MG/DL 4.07 MG/DL (0.50-1.00) (0.50-1.00) Estimat Glomerular Filtration 10 ML/MIN (>89) 10 ML/MIN (>89) Rate Random Glucose 147 MG/DL 192 MG/DL (74-106) (74-106) Lactic Acid Level 2.0 mmol/L 3.0 mmol/L (0.4-2.0) (0.4-2.0) Calcium Level 10.0 MG/DL 9.7 MG/DL (8.5-10.1) (8.5-10.1) Troponin I 0.14 NG/ML (0.02-0.05) Lipase 376 U/L (73-393) White Blood Count 14.3 TH/MM3 (4.0-11.0) Red Blood Count 3.27 MIL/MM3 (4.00-5.30) Hemoglobin 10.3 GM/DL 11.2 GM/DL (11.6-15.3) (11.6-15.3) Hematocrit 31.2 % 35.0 % (35.0-46.0) (35.0-46.0) Mean Corpuscular Volume 95.3 FL (80.0-100.0) Mean Corpuscular Hemoglobin 31.6 PG (27.0-34.0) Mean Corpuscular Hemoglobin 33.1 % Concent (32.0-36.0) Red Cell Distribution Width 18.9 % (11.6-17.2) Platelet Count 393 TH/MM3 (150-450) Mean Platelet Volume 9.4 FL (7.0-11.0) Nasal Screen MRSA (PCR) MRSA NOT DETECTED (NOT DETECT) Stool C. difficile Toxin (PCR) NEGATIVE (NEGATIVE) Stl C. difficile Toxin PRESUMPTIVE Epiderm 027 NEGATIVE (NEGATIVE) Test 5/10/17 5/10/17 5/10/17 5/10/17 14:38 15:30 16:50 20:43 Peritoneal Fluid WBC 46 /MM3 (0-10) Peritoneal Fluid RBC 2164 /MM3 (0-0) Peritoneal Fluid Neutrophils 100 % Peritoneal Fluid Lymphocytes 0 % Lactic Acid Level 4.2 mmol/L (0.4-2.0) Troponin I 0.19 NG/ML 0.21 NG/ML (0.02-0.05) (0.02-0.05) B-Type Natriuretic Peptide 2752 PG/ML (0-100) Thyroid Stimulating Hormone 2.440 uIU/ML 3rd Gen (0.358-3.740) Random Cortisol 134.2 MCG/DL Urine Color YELLOW (YELLW/STRAW) Urine Turbidity HAZY (CLEAR) Urine pH 6.5 (5.0-8.5) Urine Specific Brandon 1.012 (1.002-1.035) Urine Protein 100 mg/dL (NEG-TRACE) Urine Glucose (UA) NEG mg/dL (NEG) Urine Ketones NEG mg/dL (NEG) Urine Occult Blood TRACE (NEG) Urine Nitrite NEG (NEG) Urine Bilirubin NEG (NEG) Urine Urobilinogen LESS THAN 2.0 MG/DL (LESS THAN 2.0) Urine Leukocyte Esterase LARGE (NEG) Urine RBC 1 /hpf (0-3) Urine WBC 101 /hpf (0-5) Urine WBC Clumps MOD (NONE) Urine Squamous Epithelial 2 /hpf (0-5) Cells Urine Bacteria MANY /hpf (NONE) Urine Mucus FEW /lpf (OCC) Microscopic Urinalysis Comment CULTURE INDICATED Hemoglobin 11.4 GM/DL (11.6-15.3) Hematocrit 36.4 % (35.0-46.0) Test 08/17/16 08/17/16 08/17/16 08/17/16 04:00 05:22 10:30 11:45 White Blood Count 18.0 TH/MM3 (4.0-11.0) Red Blood Count 3.65 MIL/MM3 (4.00-5.30) Hemoglobin 11.2 GM/DL (11.6-15.3) Hematocrit 36.8 % (35.0-46.0) Mean Corpuscular Volume 100.6 FL (80.0-100.0) Mean Corpuscular Hemoglobin 30.8 PG (27.0-34.0) Mean Corpuscular Hemoglobin 30.6 % Concent (32.0-36.0) Red Cell Distribution Width 18.7 % (11.6-17.2) Platelet Count 280 TH/MM3 (150-450) Mean Platelet Volume 9.5 FL (7.0-11.0) Blood Gas Puncture Site LT BRACHIAL Blood Gas Patient Temperature 98.6 Blood Gas HCO3 11 mmol/L (22-26) Blood Gas Base Excess -14.9 mmol/L (-2-2) Blood Gas Oxygen Saturation 97 % (90-100) Arterial Blood pH 7.24 (7.380-7.420) Arterial Blood Partial 27 mmHg (38-42) Pressure CO2 Arterial Blood Partial 398 mmHg Pressure O2 (61-120) Arterial Blood Oxygen Content 16.7 Vol % (12.0-20.0) Arterial Blood 0.9 % (0-4) Carboxyhemoglobin Arterial Blood Methemoglobin 1.3 % (0-2) Blood Gas Hemoglobin 11.4 G/DL (12.0-16.0) Oxygen Delivery Device VENTILATOR Blood Gas Ventilator Setting COMMENT Blood Gas Inspired Oxygen 100 % Sodium Level 139 MEQ/L (136-145) Potassium Level 4.1 MEQ/L (3.5-5.1) Chloride Level 102 MEQ/L (98-107) Carbon Dioxide Level 16.0 MEQ/L (21.0-32.0) Anion Gap 21 MEQ/L (5-15) Blood Urea Nitrogen 45 MG/DL (7-18) Creatinine 4.74 MG/DL (0.50-1.00) Estimat Glomerular Filtration 9 ML/MIN (>89) Rate Random Glucose 207 MG/DL (74-106) Calcium Level 8.8 MG/DL (8.5-10.1) Lactic Acid Level 9.1 mmol/L (0.4-2.0) Gamma Glutamyl Transpeptidase 117 U/L (5-55) Prothrombin Time 15.5 SEC (9.8-11.6) Prothromb Time International 1.4 RATIO Ratio Test 08/17/16 08/17/16 14:25 14:30 Blood Gas Puncture Site LYN Blood Gas Patient Temperature 98.6 Blood Gas HCO3 7 mmol/L (22-26) Blood Gas Base Excess -21.6 mmol/L (-2-2) Blood Gas Oxygen Saturation 95 % (90-100) Arterial Blood pH 7.07 (7.380-7.420) Arterial Blood Partial 24 mmHg (38-42) Pressure CO2 Arterial Blood Partial 158 mmHg Pressure O2 (61-120) Arterial Blood Oxygen Content 12.7 Vol % (12.0-20.0) Arterial Blood 0.7 % (0-4) Carboxyhemoglobin Arterial Blood Methemoglobin 1.5 % (0-2) Blood Gas Hemoglobin 9.2 G/DL (12.0-16.0) Oxygen Delivery Device VENT Blood Gas Ventilator Setting [facility]/22/450/8PEEP/1I Blood Gas Inspired Oxygen 40 % White Blood Count 17.4 TH/MM3 (4.0-11.0) Red Blood Count 2.97 MIL/MM3 (4.00-5.30) Hemoglobin 9.1 GM/DL (11.6-15.3) Hematocrit 31.9 % (35.0-46.0) Mean Corpuscular Volume 105.7 FL (80.0-100.0) Mean Corpuscular Hemoglobin 30.5 PG (27.0-34.0) Mean Corpuscular Hemoglobin 28.9 % Concent (32.0-36.0) Red Cell Distribution Width 19.4 % (11.6-17.2) Platelet Count 190 TH/MM3 (150-450) Mean Platelet Volume 9.3 FL (7.0-11.0) Neutrophils (%) (Auto) 83.5 % (16.0-70.0) Lymphocytes (%) (Auto) 14.6 % (9.0-44.0) Monocytes (%) (Auto) 1.6 % (0.0-8.0) Eosinophils (%) (Auto) 0.1 % (0.0-4.0) Basophils (%) (Auto) 0.2 % (0.0-2.0) Neutrophils # (Auto) 14.6 TH/MM3 (1.8-7.7) Lymphocytes # (Auto) 2.5 TH/MM3 (1.0-4.8) Monocytes # (Auto) 0.3 TH/MM3 (0-0.9) Eosinophils # (Auto) 0.0 TH/MM3 (0-0.4) Basophils # (Auto) 0.0 TH/MM3 (0-0.2) CBC Comment AUTO DIFF Prothrombin Time 17.7 SEC (9.8-11.6) Prothromb Time International 1.6 RATIO Ratio Lactic Acid Level 18.5 mmol/L (0.4-2.0) (Landy Pittman) Result Diagram: 08/17/16 1430 08/17/16 0400 Microbiology Microbiology Date/Time Procedure Status Source Growth 08/15/16 22:00 Aerobic Blood Culture - Preliminary Resulted Blood Peripheral Staph Sp Coagulase Negative 08/15/16 22:00 Anaerobic Blood Culture - Preliminary Resulted Blood Peripheral NO GROWTH IN 2 DAYS 08/15/16 22:05 Aerobic Blood Culture - Preliminary Resulted Blood Peripheral NO GROWTH IN 2 DAYS 08/15/16 22:05 Anaerobic Blood Culture - Preliminary Resulted Blood Peripheral NO GROWTH IN 2 DAYS 08/16/16 12:35 Stool Occult Blood (SRINATH) - Final Complete Stool Stool HEMOCCULT NEGATIVE 08/16/16 12:42 Aerobic Blood Culture - Preliminary Resulted Blood Peripheral NO GROWTH IN 1 DAY 08/16/16 12:42 Anaerobic Blood Culture - Preliminary Resulted Blood Peripheral NO GROWTH IN 1 DAY 08/16/16 13:00 Aerobic Blood Culture - Preliminary Resulted Blood Peripheral NO GROWTH IN 1 DAY 08/16/16 13:00 Anaerobic Blood Culture - Preliminary Resulted Blood Peripheral NO GROWTH IN 1 DAY 08/16/16 14:38 Gram Stain - Final Resulted Fluid Peritoneal Fluid 08/16/16 14:38 Body Fluid Culture - Preliminary Resulted Fluid Peritoneal Fluid NO GROWTH IN 24 HOURS. 08/16/16 14:38 Fungal Smear - Final Resulted Fluid Peritoneal Fluid NO FUNGAL ELEMENTS SEEN. 08/16/16 14:38 Fungal Culture Resulted Fluid Peritoneal Fluid Pending 08/16/16 14:38 Cancelled Fluid Peritoneal Fluid 08/16/16 16:50 Legionella Antigen - Final Complete Urine Random Urine PRESUMPTIVE NEGATIVE FOR LEGIONELLA P... 08/16/16 16:50 Urine Culture - Final Complete Urine Random Urine 50-100,000 CFU/ML MIXED SIRIA... 08/17/16 13:33 Gram Stain Received Fluid Peritoneal Fluid Pending 08/17/16 13:33 Body Fluid Culture Received Fluid Peritoneal Fluid Pending Imaging Last Impressions Chest X-Ray 08/17/16 0000 Signed Impressions: Service Date/Time: August 02:00 - CONCLUSION: 1. Lines and tubes. 2. Clear lungs. Wellington Adorno Jr., MD Abdomen/Pelvis CT 08/17/16 0000 Signed Impressions: Service Date/Time: August 14:07 - CONCLUSION: 1. There is pneumoperitoneum anteriorly. 2. There is some possible wall thickening involving the distal transverse colon may be from colitis. 3. Constipation. 4. Minimal ascites. 5. Left basilar infiltrate. 6. Subcentimeter hepatic low densities. 7. Ventral wall hernia containing loops of small bowel. No signs of attenuation or obstruction. Vick Parks MD Abdomen Ultrasound 08/16/16 0000 Signed Impressions: Service Date/Time: Tuesday, August 16, 2016 10:00 - CONCLUSION: Hepatomegaly with diffuse parenchymal disease characteristic of steatosis. Free fluid in the abdomen from peritoneal dialysis. Status post cholecystectomy. No evidence of biliary obstructive disease. Bilateral renal cortical atrophy Bilateral renal cysts. Rodolfo Metzger MD Head CT 08/15/16 2155 Signed Impressions: Service Date/Time: Monday, August 15, 2016 23:22 - CONCLUSION: 1. No acute intracranial abnormality. 2. Chronic small vessel ischemic change. Wellington Adorno Jr., MD (Landy Pittman) Patient/Family Conference Present at Family Conference: Daughter Rochelle, daughter Vivi and son Pedrito. Family Conference Time (mins): 25 (minutes) Issues Discussed: * Palliative care role, purpose, approach * Additional medical, psychosocial, and spiritual history * Patients general health, functional status, and cognitive changes in the months leading up to the current hospitalization * Family's understanding of prognosis * Likely scenarios comparing ongoing aggressive care with a transition to comfort measures only * Questions answered to the best of my ability * Palliative care contact information provided . (Landy Pittman) Assessment and Plan Disease Oriented Problem List: (1) Cardiogenic shock (2) Acute respiratory failure (3) ESRD on peritoneal dialysis Symptom Scale: (1) Dyspnea 0-10 Scale: Unable to quantify Comment: Intubated on mechanical ventilation. Currently 100% FiO2. (2) Debility 0-10 Scale: Unable to quantify Comment: Secondary to acute illness and chronic comorbidities. Pertinent Non-Medical Issues Psychosocial: . Has 2 children. Spiritual: No spiritism affiliation. Legal: No living will completed. Ethical issues impacting care: No living will completed. . Important Contacts Daughter Christel Fuentes Daughter Vivi Son Pedrito . Prognosis Mrs. Fuentes is an 86-year-old female with a past medical history of end-stage renal disease on peritoneal dialysis, A. fib, diabetes, TA, hypertension and other multiple chronic comorbidities. Patient presented to ED on 08/15/16 post syncopal episode. Clinical course complicated by septic shock/cardiogenic shock and acute respiratory failure requiring emergent intubation and mechanical ventilation. Clinical course further complicated by bowel ischemia. Patient was placed on 3 vasopressors and bicarbonate drip. Very poor prognosis for survival given acuity of of illness, respiratory distress requiring increased oxygen demand, multiple chronic comorbidities and profound physical deconditioning. Family has elected to transition patient to comfort- directed care/withdrawal life support and allow natural . . Code Status: No Code Plan * CODE STATUS: no code. * MEDICAL DECISION-MAKING: Patient incapacitated secondary to clinical condition , comatose. No advance directives completed. As per [place] statute, patient' s 3 children Vivi K[place]ney and Pedrito are healthcare proxy. * GOALS OF CARE: 3 children electing to transition patient to comfort-directed care/withdrawal of life support and allow natural given very poor prognosis for survival. * SYMPTOMS: == Dyspnea, currently intubated on mechanical ventilation. FiO2 100 %. == Debility, progressive and worsening over the past 6 months. * Case discussed with Dr. Nesbitt and bedside RN. * Anticipatory guidance provided. * Ongoing emotional support and active listening provided. Spiritual services offered and accepted by family. Piler Timo to follow-up. * Palliative care contact information has been provided to patient's family. . (Landy Pittman) Time Spent Total Floor Time (mins): 45 Face to Face Time (mins): 30 >50% Counseling/Coord of Care: Yes (Landy Pittman) Thank you for the opportunity to participate in the care of Ms. Fuentes. (Landy Pittman) Attestation To help prompt me to consider important information that might be impacting today's encounter and assessment, information from prior notes written by myself or my colleagues may have been "brought forward" into today's note. My signature on this note, however, is an attestation that I personally performed the exam, history, and/or decision-making noted today, and, unless otherwise indicated, the interactions with patient, family, and staff as well as the review of records all occurred today. I also attest that the listed assessment and stated plan reflect my best clinical judgment today based on the combination of historical information, prior notes, and today's exam/ interactions. When time spent is documented, it refers only to time spent today by the signer, or if indicated, combined time spent today by collaborating physician/nurse practitioner. (Landy Pittman) Collaborating MD Comments . Chart reviewed. Case discussed with palliative care REGIONAL REHABILITATION DIRECTOR. I have reviewed above REGIONAL REHABILITATION DIRECTOR note and I concur. . (Avni Ruiz MD) Landy Pittman August 17, 2016 16:53 Avni Ruiz MD September 05, 2016 12:30
[2016-08-17] MEDS ORDERED: LORazepam 2 MG/ML VIAL IV ONE ×2 (17:15→17:30)
[2016-08-17] MEDS ORDERED: HYOSCYAMINE 0.5 MG/ML AMP IV ONE (17:15)
[2016-08-17] MEDS ORDERED: MORPHINE SULFATE 8 MG/ML INJ IV PUSH ONE (17:15)
[2016-08-17] MEDS ORDERED: MORPHINE SULFATE 4 MG/ML INJ IV ONE (17:30)
--- NOTE | 2016-08-17 17:40 | PD.CARD.PN ---
Subjective Subjective Remarks Intubated, unresponsive on minimal amt of sedation, on high dose pressors, in CT scan Objective Medications Current Medications Medications (Trade) Dose Ordered Sig/Laura Route Start Time Stop Time Status Last Admin (Dulcolax Supp) 10 mg DAILY PRN RECTAL 08/15/16 23:30 (Senokot) 17.2 mg Q12H PRN PO 08/15/16 23:30 08/16/16 06:30 (Heparin Inj) 5,000 units Q12H SQ 08/16/16 06:00 08/17/16 05:34 (Narcan Inj) 0.4 mg UNSCH PRN IV 08/15/16 23:30 (Ranexa) 500 mg Q12HR PO 08/16/16 09:00 (Pepcid) 10 mg BID PO 08/16/16 09:00 08/17/16 10:09 (Urecholine) 25 mg Q6HR PO 08/16/16 06:00 08/17/16 05:34 (Nitroglycerin 2% Oint) 1 inch Q6HR TOPICAL 08/16/16 06:00 08/16/16 18:00 (Catapres) 0.1 mg Q6H PRN PO 08/16/16 06:15 (NS Flush) 2 ml UNSCH PRN IV FLUSH 08/16/16 11:00 (NS Flush) 2 ml BID IV FLUSH 08/16/16 21:00 08/17/16 09:00 (Tylenol) 650 mg Q6H PRN PO 08/16/16 11:00 (Protonix Inj) 40 mg DAILY IV 08/16/16 11:00 08/17/16 10:10 (Zofran Inj) 4 mg Q6H PRN IV 08/16/16 11:00 08/16/16 23:38 (Bettye-Colace) 2 tab BID PO 08/16/16 21:00 08/17/16 10:09 Magnesium Hydroxide 30 ml 30 ml Q12H PRN PO 08/16/16 11:00 (Levophed-Dextrose Drip) 250 ml @ 0 mls/hr TITRATE IV 08/16/16 12:00 08/17/16 11:11 Terbutaline Sulfate 1 mg 1 mg UNSCH PRN SQ 08/16/16 12:00 (Vancomycin Consult Pharmacy) 0 ml @ 0 mls/hr UNSCH OTHER 08/16/16 13:00 Miscellaneous Information 1 [id number] XX 08/16/16 13:00 (Chlorhexidine 2% Cloth) 3 pack Taper DAILY@04 TOP 08/17/16 04:00 08/13/17 03:59 08/16/16 21:43 (Chlorhexidine 2% Cloth) 3 pack UNSCH PRN TOP 08/16/16 13:00 Sodium Chloride 10 ml 10 ml UNSCH PRN IV FLUSH 08/16/16 13:30 (Maxipime Inj/NS Inj) 100 ml @ 200 mls/hr Q24H IV 08/16/16 14:00 08/16/16 14:00 (D50w (Vial) Inj) 25 ml UNSCH PRN IV PUSH 08/16/16 14:30 (Glucagon Inj) 1 mg UNSCH PRN OTHER 08/16/16 14:30 Chlorhexidine Gluconate 15 ml 15 ml BID@08,20 MT 08/17/16 08:00 08/17/16 01:08 Fentanyl Citrate 250 ml @ 0 mls/hr TITRATE IV 08/17/16 00:30 08/17/16 01:08 (Pitressin Inj/ D5W 100 ml Inj) 100 ml @ 4.5 mls/hr [id number] IV 08/17/16 00:26 08/17/16 02:07 Hydrocortisone Sodium Succinate 100 mg 100 mg Q8HR IV PUSH 08/17/16 00:30 08/17/16 05:34 Sodium Bicarbonate 150 meq/Sterile Water 1,000 ml @ 125 mls/hr Q8H IV 08/17/16 05:30 Fluconazole/ Sodium Chloride 100 ml @ 100 mls/hr Q24H IV 08/17/16 11:00 08/17/16 10:58 Phenylephrine HCl 40 mg/Dextrose 500 ml @ 0 mls/hr TITRATE IV 08/17/16 13:30 (Adrenalin (1:1000) Inj/D5W Inj) 252 ml @ 0 mls/hr TITRATE IV 08/17/16 14:45 (Morphine Inj) 4 mg Q4HR IV 08/17/16 20:00 (Morphine Inj) 4 mg Q30M PRN IV 08/17/16 17:45 (Morphine Inj) 6 mg Q30M PRN IV PUSH 08/17/16 17:45 (Ativan Inj) 1 mg Q4HR IV 08/17/16 20:00 (Ativan Inj) 1 mg Q1H PRN IV 08/17/16 17:45 (Ativan Inj) 2 mg Q1H PRN IV 08/17/16 17:45 (Ativan Inj) 2 mg Q15M PRN IVS 08/17/16 17:45 (Levsin Inj) 0.25 mg Q4H PRN IV 08/17/16 17:45 (Tylenol Supp) 650 mg Q4H PRN RECTAL 08/17/16 17:45 (Lasix Inj) 20 mg Q6H PRN IV 08/17/16 17:45 (Dulcolax Supp) 10 mg DAILY PRN RECTAL 08/17/16 17:45 Vital Signs / I&O Vital Signs Date Time Temp Pulse Resp B/P Pulse Ox O2 Delivery O2 Flow Rate FiO2 08/17/16 16:49 0 100 08/17/16 16:05 60 22 90/53 138/45 08/17/16 16:01 60 22 83/52 137/45 08/17/16 16:00 100 08/17/16 16:00 60 22 139/45 08/17/16 15:45 0 38 128/51 08/17/16 15:40 60 22 110/53 155/58 08/17/16 15:35 60 22 120/58 157/58 08/17/16 15:30 61 22 116/58 161/58 08/17/16 15:25 60 22 114/58 163/59 08/17/16 15:20 60 22 125/54 166/59 08/17/16 15:15 61 22 120/56 171/59 08/17/16 15:10 60 22 129/58 188/57 08/17/16 15:05 62 22 124/58 193/58 08/17/16 15:00 60 22 138/63 197/58 08/17/16 14:55 62 22 131/60 196/60 08/17/16 14:50 60 22 124/58 198/59 08/17/16 14:45 70 22 130/62 213/62 08/17/16 14:41 60 31 132/61 205/58 08/17/16 14:36 61 37 167/67 202/52 08/17/16 14:31 30 22 105/54 181/34 08/17/16 14:30 30 22 176/32 08/17/16 14:30 30 22 176/32 08/17/16 14:24 69 22 86/49 08/17/16 14:19 58 25 102/55 08/17/16 14:15 60 11 08/17/16 14:05 60 30 146/105 08/17/16 14:00 99 100 08/17/16 14:00 63 08/17/16 14:00 63 100/71 08/17/16 13:56 65 98/74 96 08/17/16 13:56 65 08/17/16 13:50 60 22 101/55 100 165/54 08/17/16 13:50 60 08/17/16 13:45 60 08/17/16 13:45 60 22 102/59 164/54 08/17/16 13:40 60 08/17/16 13:40 60 22 105/55 164/54 08/17/16 13:35 60 22 108/54 164/54 08/17/16 13:35 60 08/17/16 13:30 60 22 108/52 150/40 08/17/16 13:30 60 08/17/16 13:26 60 22 99/57 152/39 08/17/16 13:26 60 08/17/16 13:20 60 22 86/50 08/17/16 13:20 60 08/17/16 13:17 60 08/17/16 13:17 60 22 78/48 08/17/16 13:15 60 22 80/48 08/17/16 13:15 60 08/17/16 13:12 60 24 79/41 08/17/16 13:12 60 08/17/16 13:00 60 22 100 08/17/16 13:00 60 08/17/16 12:45 60 22 100 08/17/16 12:30 60 08/17/16 12:30 60 22 83/51 100 08/17/16 12:15 63 08/17/16 12:15 63 22 88/50 100 08/17/16 12:00 63 08/17/16 12:00 40 08/17/16 12:00 99.4 63 22 86/50 100 08/17/16 11:45 63 22 84/53 100 08/17/16 11:45 63 08/17/16 11:30 62 08/17/16 11:30 62 22 82/52 100 08/17/16 11:15 63 08/17/16 11:15 63 22 81/51 100 08/17/16 11:00 62 08/17/16 11:00 62 22 83/50 99 08/17/16 10:45 60 23 84/54 88 08/17/16 10:30 60 22 82/50 100 08/17/16 10:15 59 22 87/55 100 08/17/16 10:00 62 08/17/16 10:00 60 22 85/51 100 08/17/16 09:50 60 22 84/50 100 08/17/16 09:45 60 23 100 08/17/16 09:40 60 23 86/52 100 08/17/16 09:30 60 23 88/56 100 08/17/16 09:20 60 24 83/51 100 08/17/16 09:15 60 25 99 08/17/16 09:11 60 24 91/54 100 08/17/16 09:00 60 24 90/54 100 08/17/16 08:50 60 23 87/54 100 08/17/16 08:45 60 23 100 08/17/16 08:40 61 23 83/53 100 08/17/16 08:34 63 23 77/44 100 08/17/16 08:32 61 22 74/42 100 08/17/16 08:31 61 22 79/51 100 08/17/16 08:30 60 23 100 08/17/16 08:20 60 22 104/56 99 08/17/16 08:15 60 22 99 08/17/16 08:10 60 22 106/56 100 08/17/16 08:04 100 40 08/17/16 08:00 97.8 60 22 105/55 100 08/17/16 08:00 60 08/17/16 08:00 40 08/17/16 06:00 60 22 105/51 100 08/17/16 06:00 60 08/17/16 05:43 100 50 08/17/16 05:20 60 22 113/56 100 08/17/16 05:05 61 22 108/58 100 08/17/16 05:00 60 08/17/16 04:50 60 22 102/52 100 08/17/16 04:40 60 22 97/55 100 08/17/16 04:30 60 22 89/52 100 08/17/16 04:20 60 22 87/51 100 08/17/16 04:17 60 22 83/51 100 08/17/16 04:12 60 22 84/47 100 08/17/16 04:10 60 22 84/45 100 08/17/16 04:01 97.2 60 22 84/49 100 08/17/16 04:00 100 08/17/16 04:00 61 08/17/16 03:00 60 22 89/57 100 08/17/16 03:00 66 08/17/16 02:40 62 22 83/51 100 08/17/16 02:30 63 22 87/54 100 08/17/16 02:20 63 22 84/52 100 08/17/16 02:10 63 22 85/51 100 08/17/16 02:03 62 22 94/50 100 08/17/16 02:00 66 08/17/16 02:00 60 22 100 08/17/16 01:21 60 22 98/48 100 08/17/16 01:18 60 22 97/48 100 08/17/16 01:15 60 22 96/49 100 08/17/16 01:12 60 22 92/46 100 08/17/16 01:09 60 22 91/45 100 08/17/16 01:06 60 22 99/52 100 08/17/16 01:03 60 22 92/52 100 08/17/16 01:00 66 08/17/16 01:00 60 22 91/52 100 08/17/16 00:57 60 22 91/51 100 08/17/16 00:55 94 100 08/17/16 00:54 60 22 91/49 100 08/17/16 00:51 60 22 93/48 99 08/17/16 00:48 60 22 94/48 08/17/16 00:46 60 22 89/50 94 08/17/16 00:43 61 22 91/44 92 08/17/16 00:40 60 22 119/53 96 08/17/16 00:36 60 19 140/63 100 08/17/16 00:34 100 08/17/16 00:33 60 40 130/63 91 08/17/16 00:30 60 39 125/58 90 08/17/16 00:27 60 39 120/56 93 08/17/16 00:26 97.6 60 37 116/56 95 08/17/16 00:00 66 08/16/16 23:00 66 08/16/16 22:00 66 08/16/16 21:00 66 08/16/16 20:24 99 Nasal Cannula 2.00 08/16/16 20:19 66 19 124/60 100 08/16/16 20:18 66 20 122/89 99 08/16/16 20:16 66 17 110/59 98 08/16/16 20:15 67 17 101/54 100 08/16/16 20:00 66 08/16/16 20:00 96.7 66 30 123/64 98 08/16/16 19:45 67 30 123/56 99 08/16/16 19:30 67 32 86/50 98 08/16/16 19:15 65 32 88/55 99 08/16/16 19:00 66 08/16/16 19:00 65 30 99/50 99 08/16/16 18:57 65 08/16/16 18:45 95.3 62 28 91/55 100 08/16/16 18:30 62 29 97/54 100 08/16/16 18:15 62 30 103/56 100 08/16/16 18:00 63 26 101/51 100 08/16/16 17:45 64 44 94/48 100 I/O 08/16/16 08/16/16 08/16/16 08/17/16 08/17/16 08/17/16 07:00 15:00 23:00 07:00 15:00 23:00 Intake Total 1000 ml 2084 ml 391 ml 1688 ml Output Total 50 ml 250 ml 100 ml 1000 ml Balance 950 ml 1834 ml 291 ml 688 ml Intake Oral 0 ml 200 ml IV Total 1000 ml 1884 ml 391 ml 1208 ml Other 480 ml Output Urine Total 50 ml 250 ml 100 ml 0 ml Gastric Drainage Total 1000 ml # Voids 1 # Bowel Movements 1 3 0 Physical Exam GENERAL: Intubated, unresponsive SKIN: Warm and dry. HEAD: Normocephalic. EYES: No scleral icterus. No injection or drainage. NECK: Supple, trachea midline. No JVD or lymphadenopathy. CARDIOVASCULAR: Regular rate and rhythm without murmurs, gallops, or rubs. RESPIRATORY: Breath sounds equal bilaterally. No accessory muscle use. GASTROINTESTINAL: Abdomen soft, non-tender, distended. MUSCULOSKELETAL: Mild edema. Laboratory Laboratory Tests Test 08/16/16 08/17/16 08/17/16 08/17/16 20:43 04:00 05:22 10:30 Hemoglobin 11.4 GM/DL 11.2 GM/DL Hematocrit 36.4 % 36.8 % Troponin I 0.21 NG/ML White Blood Count 18.0 TH/MM3 Red Blood Count 3.65 MIL/MM3 Mean Corpuscular Volume 100.6 FL Mean Corpuscular Hemoglobin 30.8 PG Mean Corpuscular Hemoglobin 30.6 % Concent Red Cell Distribution Width 18.7 % Platelet Count 280 TH/MM3 Mean Platelet Volume 9.5 FL Blood Gas Puncture Site LT BRACHIAL Blood Gas Patient Temperature 98.6 Blood Gas HCO3 11 mmol/L Blood Gas Base Excess -14.9 mmol/L Blood Gas Oxygen Saturation 97 % Arterial Blood pH 7.24 Arterial Blood Partial 27 mmHg Pressure CO2 Arterial Blood Partial 398 mmHg Pressure O2 Arterial Blood Oxygen Content 16.7 Vol % Arterial Blood 0.9 % Carboxyhemoglobin Arterial Blood Methemoglobin 1.3 % Blood Gas Hemoglobin 11.4 G/DL Oxygen Delivery Device VENTILATOR Blood Gas Ventilator Setting COMMENT Blood Gas Inspired Oxygen 100 % Sodium Level 139 MEQ/L Potassium Level 4.1 MEQ/L Chloride Level 102 MEQ/L Carbon Dioxide Level 16.0 MEQ/L Anion Gap 21 MEQ/L Blood Urea Nitrogen 45 MG/DL Creatinine 4.74 MG/DL Estimat Glomerular Filtration 9 ML/MIN Rate Random Glucose 207 MG/DL Calcium Level 8.8 MG/DL Lactic Acid Level 9.1 mmol/L Gamma Glutamyl Transpeptidase 117 U/L Test 08/17/16 08/17/16 08/17/16 11:45 14:25 14:30 Prothrombin Time 15.5 SEC 17.7 SEC Prothromb Time International 1.4 RATIO 1.6 RATIO Ratio Blood Gas Puncture Site LYN Blood Gas Patient Temperature 98.6 Blood Gas HCO3 7 mmol/L Blood Gas Base Excess -21.6 mmol/L Blood Gas Oxygen Saturation 95 % Arterial Blood pH 7.07 Arterial Blood Partial 24 mmHg Pressure CO2 Arterial Blood Partial 158 mmHg Pressure O2 Arterial Blood Oxygen Content 12.7 Vol % Arterial Blood 0.7 % Carboxyhemoglobin Arterial Blood Methemoglobin 1.5 % Blood Gas Hemoglobin 9.2 G/DL Oxygen Delivery Device VENT Blood Gas Ventilator Setting PRVC/22/450/8PEEP/1I Blood Gas Inspired Oxygen 40 % White Blood Count 17.4 TH/MM3 Red Blood Count 2.97 MIL/MM3 Hemoglobin 9.1 GM/DL Hematocrit 31.9 % Mean Corpuscular Volume 105.7 FL Mean Corpuscular Hemoglobin 30.5 PG Mean Corpuscular Hemoglobin 28.9 % Concent Red Cell Distribution Width 19.4 % Platelet Count 190 TH/MM3 Mean Platelet Volume 9.3 FL Neutrophils (%) (Auto) 83.5 % Lymphocytes (%) (Auto) 14.6 % Monocytes (%) (Auto) 1.6 % Eosinophils (%) (Auto) 0.1 % Basophils (%) (Auto) 0.2 % Neutrophils # (Auto) 14.6 TH/MM3 Lymphocytes # (Auto) 2.5 TH/MM3 Monocytes # (Auto) 0.3 TH/MM3 Eosinophils # (Auto) 0.0 TH/MM3 Basophils # (Auto) 0.0 TH/MM3 CBC Comment AUTO DIFF Differential Total Cells 100 Counted Neutrophils % (Manual) 31 % Band Neutrophils % 34 % Lymphocytes % 20 % Monocytes % 3 % Eosinophils % 1 % Neutrophils # (Manual) 13.2 TH/MM3 Metamyelocytes 6 % Myelocytes 5 % Nucleated Red Blood Cells 5 /100 WBC Differential Comment FINAL DIFF MANUAL Atypical Lymphocytes % Platelet Estimate NORMAL Platelet Morphology Comment ENLARGED Lactic Acid Level 18.5 mmol/L Imaging Last Impressions Chest X-Ray 08/17/16 0000 Signed Impressions: Service Date/Time: August 02:00 - CONCLUSION: 1. Lines and tubes. 2. Clear lungs. Wellington Adorno Jr., MD Abdomen/Pelvis CT 08/17/16 0000 Signed Impressions: Service Date/Time: August 14:07 - CONCLUSION: 1. There is pneumoperitoneum anteriorly. 2. There is some possible wall thickening involving the distal transverse colon may be from colitis. 3. Constipation. 4. Minimal ascites. 5. Left basilar infiltrate. 6. Subcentimeter hepatic low densities. 7. Ventral wall hernia containing loops of small bowel. No signs of attenuation or obstruction. Vick F. Tocci, MD Abdomen Ultrasound 08/16/16 0000 Signed Impressions: Service Date/Time: Tuesday, August 16, 2016 10:00 - CONCLUSION: Hepatomegaly with diffuse parenchymal disease characteristic of steatosis. Free fluid in the abdomen from peritoneal dialysis. Status post cholecystectomy. No evidence of biliary obstructive disease. Bilateral renal cortical atrophy Bilateral renal cysts. Rodolfo Metzger MD Head CT 08/15/16 2155 Signed Impressions: Service Date/Time: Monday, August 15, 2016 23:22 - CONCLUSION: 1. No acute intracranial abnormality. 2. Chronic small vessel ischemic change. Wellington Adorno Jr., MD Assessment and Plan Problem List: (1) Septic shock (2) Acute respiratory failure (3) Atrial fibrillation (4) GI bleed (5) HTN (hypertension) (6) DM (diabetes mellitus) (7) S/P TAVR (transcatheter aortic valve replacement) Assessment and Plan Progressive deterioration. On high dose pressors. Currently in CT scan. Continue ICU care. Prognosis guarded. Hussain Prado MD August 17, 2016 17:40
[2016-08-17] MEDS ORDERED: MORPHINE SULFATE 8 MG/ML INJ IV PUSH PRN (17:45)
[2016-08-17] MEDS ORDERED: HYOSCYAMINE 0.5 MG/ML AMP IV PRN (17:45)
[2016-08-17] MEDS ORDERED: FUROSEMIDE 20 MG/2 ML VIAL IV PRN (17:45)
[2016-08-17] MEDS ORDERED: BISACODYL 10 MG SUPP RECTAL PRN (17:45)
[2016-08-17] MEDS ORDERED: LORazepam 2 MG/ML VIAL IV PRN ×2 (17:45)
[2016-08-17] MEDS ORDERED: LORazepam 2 MG/ML VIAL IVS PRN (17:45)
[2016-08-17] MEDS ORDERED: MORPHINE SULFATE 4 MG/ML INJ IV PRN (17:45)
[2016-08-17] MEDS ORDERED: ACETAMINOPHEN 650 MG SUPP RECTAL PRN (17:45)
--- NOTE | 2016-08-17 19:54 | MB ---
cc: MARANDA HEAD M.D. DATE OF CONSULTATION: 08/17/2016. REASON FOR CONSULTATION: Sepsis with possible acute abdomen. HISTORY OF PRESENT ILLNESS: This is a dictation after the patient's expiration. The consultation was cancelled after family requested withdrawal of treatment. I did not see the patient prior to expiration. Therefore, no consult was dictated, and the patient was not seen prior to expiration. MD RAYA Hoffman/TAWANDA /7:42 PM /7:47 PM
[2016-08-17] MEDS ORDERED: MORPHINE SULFATE 4 MG/ML INJ IV SCH (20:00)
[2016-08-17] MEDS ORDERED: LORazepam 2 MG/ML VIAL IV SCH (20:00)
--- NOTE | 2016-08-17 20:28 | EKG ---
Date Performed: 08/17/2016 Time Performed: 14:37:38 PTAGE: 86 years EKG: Ventricular demand pacemaker Lead(s) unsuitable for analysis: V6 Pacemaker rhythm - no furt her analysis Abnormal ECG COMPARED TO PRIOR ELECTROCARDIOGRAM, Present electrocardiogram is missing l ead V6. There is no significant change although underlying atrial rhythm is unclear. PREVIOUS TRACING : 08/16/2016 05.58 DOCTOR: Nas Yoon Interpretating Date/Time 08/17/2016 20:27:43
[2016-08-18 02:34] LABS: PERITONEAL LYMPHS 1 %; PERITONEAL MONOS 10 %; PERITONEAL POLYS(SEGS) 89 %; PERITONEAL WBC 550 /MM3 (0-10)
--- NOTE | 2016-09-25 16:51 | HHI.DS ---
Discharge Summary Admission Date August 16, 2016 at 09:44 Discharge Date: August 17, 2016 Admitting Diagnosis Syncope Imaging Last Impressions Chest X-Ray 08/17/16 0000 Signed Impressions: Service Date/Time: August 02:00 - CONCLUSION: 1. Lines and tubes. 2. Clear lungs. Wellington Adorno Jr., MD Abdomen/Pelvis CT 08/17/16 0000 Signed Impressions: Service Date/Time: August 14:07 - CONCLUSION: 1. There is pneumoperitoneum anteriorly. 2. There is some possible wall thickening involving the distal transverse colon may be from colitis. 3. Constipation. 4. Minimal ascites. 5. Left basilar infiltrate. 6. Subcentimeter hepatic low densities. 7. Ventral wall hernia containing loops of small bowel. No signs of attenuation or obstruction. Vick Parks MD Abdomen Ultrasound 08/16/16 0000 Signed Impressions: Service Date/Time: Tuesday, August 16, 2016 10:00 - CONCLUSION: Hepatomegaly with diffuse parenchymal disease characteristic of steatosis. Free fluid in the abdomen from peritoneal dialysis. Status post cholecystectomy. No evidence of biliary obstructive disease. Bilateral renal cortical atrophy Bilateral renal cysts. Rodolfo Metzger MD Head CT 08/15/16 2155 Signed Impressions: Service Date/Time: Monday, August 15, 2016 23:22 - CONCLUSION: 1. No acute intracranial abnormality. 2. Chronic small vessel ischemic change. Wellington Adorno Jr., MD PE at Discharge GENERAL: This was an obese well-developed, female intubated and sedate HEAD: Normocephalic without any lesion or mass noted. Facial features appear symmetric. OROPHARYNGEAL: With the ET and OG tube NECK: Supple. No nuchal rigidity or lymphadenopathy. Trachea midline without deviation. CARDIAC: Regular rhythm, regular rate, S1 and S2 are heard. Murmur soft ,no gallops or rubs. LUNGS: Diminished breath sounds to auscultation bilaterally left more diminished than right. ABDOMEN: Soft round, no masses. Bowel sounds decreased, Mild distention EXTREMITIES: Generalized extremity upper and lower edema. Pulses intact, weak , NEUROLOGICAL: Intubated insulin Hospital Course These are the diagnoses that were used to treat this patient during this hospital stay. Patient before leaving the hospital 24 hours into her admission 1. Syncope. 2. End-stage renal disease on peritoneal dialysis. 3. Elevated troponin. 4. Bilateral right greater than left pleural effusions. 5. Abdominal pain. 6. History of GI bleeds and AVMs. 7. Hypertension. 8. Diabetes mellitus type 2. 9. 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 10 Constipation 11. Hypotension DISCUSSION Vital signs reviewed a.m. BP 186/87. Will add some when necessary meds for BP, when checked this a.m. patient was pale, mild diaphoresis, BP systolic high 80s to 90, where she was hypertensive. Increased IV fluids from 50-125 an hour for a 500 cc bolus. Monitor for any acute shortness of breath. Labs reviewed, leukocytosis mild, elevated lactic acid on admission but trending down. Blood cultures are pending Anemia probably secondary to chronic disease but no acute bleeding noted, Hemoccult and 10. We will monitor again in the a.m., CBC and BMP Patient's condition started trending down as noted before she End-stage renal due to disease, peritoneal dialysis used, patient appears to be extremely debilitated. Nephrology consult, pending Elevated troponins, telemetry, spoke to technical support engineer heart rate appears to be in the 80s, pacemaker is firing Cardiology is consult pending, recent TAVR, systolic murmur noted Patient has pacemaker, scheduled to have her pacemaker upgrade done at [facility] on August 18, 2016. This will be deferred to Dr. Read if it needs to be moved up and done here or if she will be released prior to then and have it done as planned at [facility]. DVT prophylaxis Abdominal pain, patient states generalized, and complaints of constipation. We' ll check for impaction, and give Dulcolax suppository afterwards. Patient states very small BM last night but very hard. GI consult pending. PUD prophylaxis History of hypertension, home meds reconciled we'll monitor vital signs with special attention to BP. Labile Diabetes type 2, Accu-Cheks before meals and at bedtime with sliding scale Mild dyspnea continued with low volumes, O2 therapy Assessment and Plan her Dr. Javier a.m. of patient expiring Incision examination detailed as above. With RN at bedside. Agree with 500 bolus as discussed with [employer] MA[employer]GER. Plan of care discussed with [employer] MA[employer]GER Plan to DC nitro paste Continuous telemetry Recheck CBC this morning stat. Patient is a labile blood pressure before she came she is a low blood pressure done very high and now again low urine will monitor. Discussed with patient in detail Left message for daughter Discussed with RN on the floor in detail Condition was critical bolus was given. Total critical time spent in management of this patient direct management is approximately 30 minutes. As patient condition is very labile with multiple medical problem to prevent shock patient warrants inpatient admission. Will admit inpatient. Discussed with cardiology as well. Likely be here 3-4 days. Patient is still lethargic. Discussed with security patrol driver. Discussed with um specialist. As per nephrology she has is still some kidney function. And wants to avoid dye. Plan for a stat ultrasound abdomen complete. As discussed with security patrol driver. pt seen again in ICU. dw skein spooler and security patrol driver on pressors Patient's condition continued to decline to the point that she did not survive her hospital stay. Aida Jackson August 16, 2016 08:10 Louise Javier MD August 16, 2016 09:14 Plan A/P Assessment and Plan Shock likely septic/Cardiogenic shock Leukocytosis Hypothermia Severe Lactic acidosis Slight abdominal pain on admission End-stage renal disease Arrhythmia status post pacemaker Questionable GI bleed History of GI bleed/AVMs TAVR 04/2016 H/O Hypertension Obesity Diarrhea Labs reviewed On broad spectrum antibiotic will add Diflucan Plan for infectious disease consult Appreciate security patrol driver GI and cardiology input Appreciate nephrology input Continue peritoneal dialysis as per um specialist Will send parat[place] fluid culture again Continue pressor support on as-needed basis Discussed with security patrol driver in detail Consult general surgery. Discussed with general surgeon. Plan for CT abdomen with oral contrast a stat Vent management as per security patrol driver GI prophylaxis SCD for DVT prophylaxis Labs for tomorrow Condition critical prognosis guarded to poor Discussed with daughter at bedside in detail Discussed with RN Total time spent more than 35 minutes in management of this critically ill patient Pt Condition on Discharge: Deteriorating Discharge Disposition: Hospice/ Home Discharge Instructions Additional Information Patient , took a rapid decline and did not recover. Aida Jackson Sep 25, 2016 16:51
== END 2016-08-17 18:01 | disposition expired | DRG 871 ==
LOC: NEPE 21:49 → NEDA 23:26 → NEPFCDU 08-16 03:54 → OBSVTOIN 08-16 09:44 → HIMN 08-16 11:01
PROVIDERS: ADMIT Specialist; ATTEND Specialist
PROC: 02H633Z Insertion of Infusion Device into Right Atrium, Percutaneous Approach (ICD-10-PCS; principal; 2016-08-16)
PROC: B244ZZZ Ultrasonography of Right Heart (ICD-10-PCS; 2016-08-16)
PROC: 3E1M39Z Irrigation of Peritoneal Cavity using Dialysate, Percutaneous Approach (ICD-10-PCS; 2016-08-16)
PROC: 0BH17EZ Insertion of Endotracheal Airway into Trachea, Via Natural or Artificial Opening (ICD-10-PCS; 2016-08-17)
PROC: 5A1935Z Respiratory Ventilation, Less than 24 Consecutive Hours (ICD-10-PCS; 2016-08-17)
PROC: 04HY32Z Insertion of Monitoring Device into Lower Artery, Percutaneous Approach (ICD-10-PCS; 2016-08-17)
DX: A41.9 Sepsis, unspecified organism (principal); N18.6 End stage renal disease; J96.00 Acute respiratory failure, unspecified whether with hypoxia or hypercapnia; R65.21 Severe sepsis with septic shock; R57.0 Cardiogenic shock; J90 Pleural effusion, not elsewhere classified; I12.0 Hypertensive chronic kidney disease with stage 5 chronic kidney disease or end stage renal disease; E87.2 Acidosis; I48.0 Paroxysmal atrial fibrillation; Z99.2 Dependence on renal dialysis; E11.22 Type 2 diabetes mellitus with diabetic chronic kidney disease; Z79.4 Long term (current) use of insulin; Z86.73 Personal history of transient ischemic attack (TIA), and cerebral infarction without residual deficits; E03.9 Hypothyroidism, unspecified; I25.10 Atherosclerotic heart disease of native coronary artery without angina pectoris; I25.2 Old myocardial infarction; Z95.0 Presence of cardiac pacemaker; Z95.4 Presence of other heart-valve replacement; H91.90 Unspecified hearing loss, unspecified ear; Z79.82 Long term (current) use of aspirin; D64.9 Anemia, unspecified; K30 Functional dyspepsia; E66.9 Obesity, unspecified; Z68.30 Body mass index [BMI] 30.0-30.9, adult; R19.7 Diarrhea, unspecified; K76.0 Fatty (change of) liver, not elsewhere classified
CPT/HCPCS: 31500; 36556; 36600; 70450; 71010; 74176; 76700; 76937; 80048; 80053; 81001; 82272; 82533; 82550; 82805; 82948; 82977; 83605; 83690; 83735; 83880; 83986; 84145; 84443; 84484; 85007; 85014; 85018; 85025; 85027; 85610; 85730; 86403; 87040; 87070; 87077; 87086; 87102; 87186; 87205; 87206; 87449; 87493; 87641; 89051; 90935; 93005; 93306; 94002; 94640; 94664; 96374; C9113; G0378; J0692; J1450; J1644; J1720; J1815; J2060; J2270; J2405; J3010; J3370; J7030; J7040; Q9963